=== PATIENT | male | born 1965 | race Caucasian/White ===

== ENCOUNTER 2016-06-25 15:00 | Emergency (ER) | payer OTHER ==
[~2016-06-25] VITALS: Ht 182.9 cm; Wt 83.6 kg
[~2016-06-25 15:00] MED LIST: PANT40TA PO; SERT-234 PO
[2016-06-25 15:04] VITALS: TEMP 36.6; Ht 182.9 cm; Wt 83.6 kg
--- NOTE | 2016-06-25 15:14 | EMERGENCY ROOM VISIT NOTE ---
History Report prepared by Prashant: Paul Recinos Under the Supervision of: Dr. Manuel Esquivel M.D. First contact with patient: 15:05 Chief Complaint: ABDOMINAL PAIN Stated Complaint: STOMACH PAIN History of Present Illness The patient is a 51 year old male who presents to the Emergency Room with complaints of right lower quadrant abdominal pain that started 4 days ago. He was sent from his primary care physician for an appendix workup. The patient also complains of intermittent fevers. He denies any vomiting. The patient still has his appendix and gallbladder. Source of History: patient Onset: 4 days ago Position: abdomen (RLQ) Timing: other (persistent) Associated Symptoms: + fevers, No vomiting Note: No other associated symptoms noted. Review of Systems See HPI for pertinent positives & negatives. A total of 10 systems reviewed and were otherwise negative. Past Medical & Surgical Medical Problems: (1) lower back surgery (2) stomach problems Family History Cancer Diabetes mellitus Heart disease Hypertension Social History Smoking Status: Current Every Day Smoker Alcohol Use: none Drug Use: none Marital Status: Housing Status: lives with family Occupation Status: unemployed Current/Historical Medications Scheduled Fluticasone Propionate (Nasal) (Flonase Allergy Relief), 2 SPRAYS CURRY DAILY Morphine Sulfate (Morphine Sulfate Cr), 30 MG PO BID Omeprazole (Prilosec), 40 MG PO DAILY Sertraline (Zoloft), 100 MG PO DAILY Scheduled PRN Dicyclomine Hcl (Bentyl), 10 MG PO QID PRN for ABD CRAMPS Hydrocodone/Acetaminophen 5MG/325MG ([place] 5MG/325MG), 1 TABLET PO BID PRN for Pain Loratadine (Claritin), 10 MG PO DAILY PRN for ALLERGIC REACTION Allergies Coded Allergies: Hydrocortisone (Verified Allergy, Unknown, DROPPED BP, 03/03/14) Iodinated Contrast Media (Verified Adverse Reaction, Unknown, GI SYMPTOMS- -N/V, 03/03/14) Physical Exam Vital Signs Date Time Temp Pulse Resp B/P Pulse Ox O2 Delivery O2 Flow Rate FiO2 06/25/16 17:35 53 20 112/80 96 Room Air 06/25/16 15:52 59 06/25/16 15:49 59 20 120/76 95 Room Air 06/25/16 15:04 36.6 75 20 116/85 98 Room Air Physical Exam CONSTITUTIONAL: Moderate painful distress. HEENT: No icterus, moist mucous membranes NECK: No meningismus, trachea is midline. CARDIOVASCULAR: Regular rate, normal perfusion RESPIRATORY: Unlabored breathing. Clear to auscultation. GASTROINTESTINAL: Moderate right-sided abdominal tenderness. GENITOURINARY: No flank tenderness MUSCULOSKELETAL: Full range of motion NEUROLOGIC: No acute gross focal deficits. PSYCHIATRIC: Normal affect SKIN: Normal for ethnicity. Medical Decision & Procedures ER Provider Diagnostic Interpretation: X-ray results as stated below per my interpretation and radiologist interpretation. Other radiology results as stated below per my review and radiologist interpretation. CHEST 2 VIEWS ROUTINE CLINICAL HISTORY: Abdominal pain rating to the right upper quadrant COMPARISON STUDY: 12/14/2012 FINDINGS: The cardiac and mediastinal contours remain stable. There is no focal pulmonary consolidation. Underlying emphysema is suspected. There is progressive bibasal interstitial thickening. This is a nonspecific finding which could be secondary to interstitial lung disease, an acute interstitial inflammatory process, or atelectasis. No free air is visualized.[ IMPRESSION: 1. No evidence of free air 2. Progressive bibasal interstitial thickening Electronically signed by: Rosalio Bergeron M.D. 06/25/2016 4:48 PM Dictated Date/Time: 06/25/2016 4:[address] ABD/PELVIS IV AND ORAL CONT CLINICAL HISTORY: Right-sided abdominal pain, nausea, vomiting. COMPARISON STUDY: 05/17/2014 TECHNIQUE: Following the IV administration of 115 mL of Optiray-320, CT scan of the abdomen and pelvis was performed from the lung bases to the proximal femurs. Images are reviewed in the axial, sagittal, and coronal planes. IV contrast was administered without complication. CT DOSE: 380.02 mGy.cm FINDINGS: Lower chest: There is severe emphysema with bibasilar dependent airspace opacities, likely atelectatic. Liver: There is mild hepatic steatosis. There is a 14 mm hypodensity within the left hepatic lobe, similar to the preceding study. Gallbladder: Unremarkable. Spleen: Normal in size and attenuation. Pancreas: Unremarkable. Adrenal glands: Unremarkable. Kidneys: There is an 18 mm right renal cyst. Bowel: There are no transition zones indicate bowel obstruction. There is no evidence of acute diverticulitis. The appendix appears normal. Peritoneum: There is no intraperitoneal free air or abdominal ascites. Vasculature: The abdominal aorta is normal in course and caliber. Adenopathy: None. Pelvic viscera: There is mild nonspecific bladder wall thickening Skeletal structures: No destructive osseous lesions are seen. IMPRESSION: 1. No evidence of bowel obstruction. No evidence of free air 2. Emphysema with bibasilar opacities likely atelectatic 3. No evidence of acute appendicitis. No evidence of acute diverticulitis. 4. Mild bladder wall thickening Electronically signed by: Rosalio Bergeron M.D. 06/25/2016 7:30 PM Dictated Date/Time: 06/25/2016 7:25 PM Laboratory Results 06/25/16 15:25 Red Blood Count 4.22, Mean Corpuscular Volume 89.1, Mean Corpuscular Hemoglobin 31.3, Mean Corpuscular Hemoglobin Concent 35.1, Mean Platelet Volume 9.9, Neutrophils (%) (Auto) 69.5, Lymphocytes (%) (Auto) 22.5, Monocytes (%) (Auto) 6.3, Eosinophils (%) (Auto) 1.1, Basophils (%) (Auto) 0.4, Neutrophils # (Auto) 5.73, Lymphocytes # (Auto) 1.86, Monocytes # (Auto) 0.52, Eosinophils # (Auto) 0.09, Basophils # (Auto) 0.03 06/25/16 15:25 Test 06/25/16 15:25 White Blood Count 8.25 K/uL (4.8-10.8) Red Blood Count 4.22 M/uL (4.7-6.1) Hemoglobin 13.2 g/dL (14.0-18.0) Hematocrit 37.6 % (42-52) Mean Corpuscular Volume 89.1 fL (80-100) Mean Corpuscular Hemoglobin 31.3 pg (25-34) Mean Corpuscular Hemoglobin Concent 35.1 g/dl (32-36) Platelet Count 276 K/uL (130-400) Mean Platelet Volume 9.9 fL (7.4-10.4) Neutrophils (%) (Auto) 69.5 % Lymphocytes (%) (Auto) 22.5 % Monocytes (%) (Auto) 6.3 % Eosinophils (%) (Auto) 1.1 % Basophils (%) (Auto) 0.4 % Neutrophils # (Auto) 5.73 K/uL (1.4-6.5) Lymphocytes # (Auto) 1.86 K/uL (1.2-3.4) Monocytes # (Auto) 0.52 K/uL (0.11-0.59) Eosinophils # (Auto) 0.09 K/uL (0-0.5) Basophils # (Auto) 0.03 K/uL (0-0.2) RDW Standard Deviation 42.8 fL (36.4-46.3) RDW Coefficient of Variation 13.2 % (11.5-14.5) Immature Granulocyte % (Auto) 0.2 % Immature Granulocyte # (Auto) 0.02 K/uL (0.00-0.02) Urine Color YELLOW Urine Appearance CLOUDY (CLEAR) Urine pH 5.0 (4.5-7.5) Urine Specific [place] 1.016 (1.000-1.030) Urine Protein NEG (NEG) Urine Glucose (UA) NEG (NEG) Urine Ketones NEG (NEG) Urine Occult Blood NEG (NEG) Urine Nitrite NEG (NEG) Urine Bilirubin NEG (NEG) Urine Urobilinogen NEG (NEG) Urine Leukocyte Esterase NEG (NEG) Urine WBC (Auto) 1-5 /hpf (0-5) Urine RBC (Auto) 0-4 /hpf (0-4) Urine Hyaline Casts (Auto) /lpf (0-5) Urine Epithelial Cells (Auto) 10-20 /lpf (0-5) Urine Bacteria (Auto) NEG (NEG) Urine Mucus PRESENT (NONE PRSENT) Urine Sperm (Auto) PRESENT (NOT PRESENT) Anion Gap 11.0 mmol/L (3-11) Est Creatinine Clear Calc Drug Dose 102.0 ml/min Estimated GFR () 109.0 Estimated GFR (Non- 94.1 BUN/Creatinine Ratio 9.6 (10-20) Calcium Level 9.1 mg/dl (8.5-10.1) Total Bilirubin 0.2 mg/dl (0.2-1) Direct Bilirubin < 0.1 mg/dl (0-0.2) Aspartate Amino Transf (AST/SGOT) 12 U/L (15-37) Alanine Aminotransferase (ALT/SGPT) 18 U/L (12-78) Alkaline Phosphatase 77 U/L (45-117) Total Protein 6.8 gm/dl (6.4-8.2) Albumin 3.6 gm/dl (3.4-5.0) Lipase 280 U/L (73-393) Urine Opiates Screen POS (NEG) Urine Methadone, Qualitative NEG (NEG) Urine Barbiturates NEG (NEG) Urine Phencyclidine (PCP) Level NEG (NEG) Ur Amphetamine/Methamphetamine POS (NEG) MDMA (Ecstasy) Screen NEG (NEG) Urine Benzodiazepines Screen NEG (NEG) Urine Cocaine Metabolite NEG (NEG) Urine Marijuana (THC) NEG (NEG) Labs reviewed by ED physician. Medications Administered Medications (Trade) Dose Ordered Sig/Dede Route Start Time Stop Time Status Last Admin Dose Admin Ondansetron HCl 4 mg 4 mg NOW STAT IV 06/25/16 15:15 06/25/16 15:16 DC 06/25/16 15:42 4 MG Sodium Chloride (Nss 500ml) 500 ml @ 999 mls/hr Q31M STAT IV 06/25/16 15:15 06/25/16 15:45 DC 06/25/16 15:15 999 MLS/HR Ketorolac Tromethamine (Toradol Inj) 15 mg NOW STAT IV 06/25/16 15:15 06/25/16 15:16 DC 06/25/16 15:40 15 MG Hydromorphone HCl (Dilaudid Inj) 1 mg PRN STAT IV 06/25/16 15:15 06/25/16 15:16 DC 06/25/16 15:40 1 MG Diphenhydramine HCl (Benadryl Inj) 25 mg NOW STAT IV 06/25/16 15:19 06/25/16 15:20 DC 06/25/16 15:41 25 MG Prochlorperazine Edisylate (Compazine Inj) 10 mg NOW STAT IV 06/25/16 15:19 06/25/16 15:20 DC 06/25/16 15:40 10 MG ED Course 1510: Past medical records reviewed. The patient was evaluated in room B9. A complete history and physical examination was performed. 1515: Ordered Dilaudid Inj 1 mg IV PRN, Toradol Inj 15 mg IV, NSS 500 ml @ 999 mls/hr IV, Zofran Inj 4 mg IV. 1518: Ordered Compazine Inj 10 mg IV, Benadryl Inj 25 mg IV. 1951: I reevaluated the patient and he is resting comfortably. The patient verbally expressed understanding and agreement of the treatment plan. The patient will be discharged. Medical Decision Differential diagnoses include: cholecystitis, appendicitis, kidney stone. 51-year-old presented to the emergency department for evaluation of several days of mild to moderate constant right lower quadrant tenderness and diarrhea. Moderate right-sided abdominal tenderness noted on exam. CT exam and labs otherwise unremarkable. Patient has opioid positive urine prior to administration of opiates emergency department. Abdomen benign prior to discharge. Patient understands up with primary doctor return for any worsening worrisome symptoms Impression Primary Impression: Abdominal pain Additional Impression: Diarrhea Scribe Attestation The scribe's documentation has been prepared under my direction and personally reviewed by me in its entirety. I confirm that the note above accurately reflects all work, treatment, procedures, and medical decision making performed by me. Departure Information Dispostion Home / Self-Care Referrals Enrico Schmidt M.D. (PCP) Forms Call Back Authorization, HOME CARE DOCUMENTATION FORM, IMPORTANT VISIT INFORMATION Patient Instructions Abdominal Pain - [facility], My [facility] Problem Qualifiers
[2016-06-25] MEDS ORDERED: HYDROmorphone INJ 1 MG/ML SYR IV STA (15:15)
[2016-06-25] MEDS ORDERED: KETOROLAC TROMETHAMINE 30 MG/ML VIAL IV STA (15:15)
[2016-06-25] MEDS ORDERED: ONDANSETRON INJ 2 MG/ML 2 ML VIAL IV STA (15:15)
[2016-06-25] MEDS ORDERED: SODIUM CHLORIDE 0.9% 500ML 500 ML IV STA (15:15)
[2016-06-25] MEDS ORDERED: DiphenhydrAMINE HCL 50 MG/ML VIAL IV STA (15:19)
[2016-06-25] MEDS ORDERED: PROCHLORPERAZINE 5 MG/ML 2 ML VIAL IV STA (15:19)
[2016-06-25 15:37] LABS: BASO % 0.4 %; BASO ABS # 0.03 K/uL (0-0.2); COMPLETE YES; EOS % 1.1 %; HEMATOCRIT 37.6 % (42-52); IG% 0.2 %; LYMPH % 22.5 %; LYMPH ABS # 1.86 K/uL (1.2-3.4); MEAN CELL VOLUME 89.1 fL (80-100); MEAN CORPUSCULAR HEMOGLOBIN 31.3 pg (25-34); MEAN CORPUSCULAR HGB CONC 35.1 g/dl (32-36); MEAN PLATELET VOLUME 9.9 fL (7.4-10.4); MONO % 6.3 %; NEUT % 69.5 %; PLATELET COUNT 276 K/uL (130-400); RED BLOOD COUNT 4.22 M/uL (4.7-6.1); WHITE BLOOD COUNT 8.25 K/uL (4.8-10.8)
[2016-06-25 15:52] LABS: URINE APPEARANCE CLOUDY (CLEAR); URINE BILIRUBIN NEG (NEG); URINE COLOR YELLOW; URINE NITRITE NEG (NEG); URINE SPECIFIC GRAVITY 1.016 (1.000-1.030); UROBILINOGEN NEG (NEG); ZZUR CULT IF INDIC CLEAN CATCH NO
[2016-06-25 15:55] LABS: ALT/SGPT 18 U/L (12-78); BLOOD UREA NITROGEN 9 mg/dl (7-18); BUN/CREATININE RATIO 9.6 (10-20); CALCIUM 9.1 mg/dl (8.5-10.1); CARBON DIOXIDE 22 mmol/L (21-32); CHLORIDE 109 mmol/L (98-107); CREATININE 0.93 mg/dl (0.60-1.40); GLUCOSE 87 mg/dl (70-99); POTASSIUM 3.7 mmol/L (3.5-5.1); SODIUM 142 mmol/L (136-145)
[2016-06-25 15:57] LABS: MANUAL MICROSCOPIC REQUIRED? NO; REVIEW REQ? YES
[2016-06-25 15:58] LABS: ALKALINE PHOSPHATASE 77 U/L (45-117); AST/SGOT 12 U/L (15-37)
[2016-06-25 16:13] LABS: URINE MUCUS PRESENT (NONE PRSENT)
[2016-06-25 16:16] LABS: BENZODIAZEPINE, URINE NEG (NEG); COCAINE,URINE NEG (NEG); PHENCYCLIDINE, URINE NEG (NEG)
[2016-06-25] MEDS ORDERED: DICY10CA55 PO (16:16)
[2016-06-25] MEDS ORDERED: MORP-87 PO (16:16)
[2016-06-25] MEDS ORDERED: FLUT0.15 NAE (16:16)
[2016-06-25] MEDS ORDERED: CLR10 PO (16:16)
[2016-06-25] MEDS ORDERED: HYDR-5688 PO (16:16)
[2016-06-25] MEDS ORDERED: OMEP40CA41 PO (16:18)
--- NOTE | 2016-06-25 16:49 | DIAGNOSTIC IMAGING REPORT ---
CHEST 2 VIEWS ROUTINE CLINICAL HISTORY: Abdominal pain rating to the right upper quadrant COMPARISON STUDY: 12/14/2012 FINDINGS: The cardiac and mediastinal contours remain stable. There is no focal pulmonary consolidation. Underlying emphysema is suspected. There is progressive bibasal interstitial thickening. This is a nonspecific finding which could be secondary to interstitial lung disease, an acute interstitial inflammatory process, or atelectasis. No free air is visualized.[ IMPRESSION: 1. No evidence of free air 2. Progressive bibasal interstitial thickening Electronically signed by: Rosalio Bergeron M.D. 06/25/2016 4:48 PM Dictated Date/Time: 06/25/2016 4:45 PM
--- NOTE | 2016-06-25 19:31 | DIAGNOSTIC IMAGING REPORT ---
CT ABD/PELVIS IV AND ORAL CONT CLINICAL HISTORY: Right-sided abdominal pain, nausea, vomiting. COMPARISON STUDY: 05/17/2014 TECHNIQUE: Following the IV administration of 115 mL of Optiray-320, CT scan of the abdomen and pelvis was performed from the lung bases to the proximal femurs. Images are reviewed in the axial, sagittal, and coronal planes. IV contrast was administered without complication. CT DOSE: 380.02 mGy.cm FINDINGS: Lower chest: There is severe emphysema with bibasilar dependent airspace opacities, likely atelectatic. Liver: There is mild hepatic steatosis. There is a 14 mm hypodensity within the left hepatic lobe, similar to the preceding study. Gallbladder: Unremarkable. Spleen: Normal in size and attenuation. Pancreas: Unremarkable. Adrenal glands: Unremarkable. Kidneys: There is an 18 mm right renal cyst. Bowel: There are no transition zones indicate bowel obstruction. There is no evidence of acute diverticulitis. The appendix appears normal. Peritoneum: There is no intraperitoneal free air or abdominal ascites. Vasculature: The abdominal aorta is normal in course and caliber. Adenopathy: None. Pelvic viscera: There is mild nonspecific bladder wall thickening Skeletal structures: No destructive osseous lesions are seen. IMPRESSION: 1. No evidence of bowel obstruction. No evidence of free air 2. Emphysema with bibasilar opacities likely atelectatic 3. No evidence of acute appendicitis. No evidence of acute diverticulitis. 4. Mild bladder wall thickening Electronically signed by: Rosalio Bergeron M.D. 06/25/2016 7:30 PM Dictated Date/Time: 06/25/2016 7:25 PM
[2016-06-25 20:15] VITALS: BP 110/72; PULSE 70; O2SAT 97
[2016-07-01 15:34] LABS: COD UR NEGATIVE NG/ML (CUTOFF=50); HYDROCOD UR NEGATIVE NG/ML (CUTOFF=50); HYDROMOR UR 65 NG/ML (CUTOFF=50); MORPHINE UR 2430 NG/ML (CUTOFF=50); NORHYDROCODONE CONF UR NEGATIVE NG/ML (CUTOFF=50); OXYMORPH UR NEGATIVE NG/ML (CUTOFF=50)
== END 2016-06-25 20:16 | disposition home or self-care (01) ==
LOC: C.EDB 15:01
DX: R10.31 Right lower quadrant pain (principal); R19.7 Diarrhea, unspecified; F17.200 Nicotine dependence, unspecified, uncomplicated; Z80.9 Family history of malignant neoplasm, unspecified; Z83.3 Family history of diabetes mellitus; Z82.49 Family history of ischemic heart disease and other diseases of the circulatory system

== ENCOUNTER 2017-01-28 19:58 | Emergency (ER) | payer OTHER ==
[~2017-01-28] VITALS: Ht 182.9 cm; Wt 78.2 kg
[~2017-01-28 19:58] MED LIST changes: +CLR10 PO; +DICY10CA55 PO; +FLUT0.15 NAE; +HYDR-5688 PO; +MORP-87 PO; +OMEP40CA41 PO; -PANT40TA PO
[2017-01-28 20:02] VITALS: BP 116/75; PULSE 63; TEMP 36.6; O2SAT 97; Ht 182.9 cm; Wt 78.2 kg
[2017-01-28] MEDS ORDERED: KETOROLAC TROMETHAMINE 60 MG/2 ML VIAL IM STA (20:18)
[2017-01-28] MEDS ORDERED: HYDROmorphone INJ 1 MG/ML SYR IM STA (20:18)
--- NOTE | 2017-01-28 20:49 | DIAGNOSTIC IMAGING REPORT ---
LUMBAR SPINE WITHOUT HISTORY: 51 years-old Male acute low back pain status post fall. COMPARISON: CT abdomen and pelvis 06/25/2016, lumbar spine CT 03/03/2017 TECHNIQUE: Multiple axial CT images of the lumbar spine were obtained without contrast. A dose lowering technique was used consistent with the principals of LULU. FINDINGS: Low attenuating 2.0 cm lesion of the right kidney is nonspecific, however suggests cyst. There is mild aortoiliac atherosclerotic plaquing. No fracture or dislocation of the lumbar spine identified. The sacrum is intact. Alignment is satisfactory. T12-L1: Mild facet arthrosis without central canal or foraminal narrowing. L1-L2: Mild facet arthrosis with broad-based posterior disc bulge causing mild central canal narrowing and mild inferior bilateral foraminal stenosis. L2-L3: Mild facet arthrosis with broad-based posterior disc bulge causing mild central canal narrowing. The neuroforamen appear patent. L3-L4: Moderate facet arthrosis and ligamentum flavum redundancy with circumferential annular disc bulge narrowing the AP dimension of the thecal sac to 7 mm causing moderate central canal and mild inferior bilateral foraminal narrowing. L4-L5: Posterior spondylitic spurring is present in conjunction with broad-based posterior disc bulge, mild to moderate facet arthrosis and ligamentum flavum redundancy causing moderate central canal, moderate left and no significant right foraminal narrowing. L5-S1: Moderate intervertebral disc space narrowing with posterior spondylitic spurring and circumferential annular disc bulge with moderate to severe facet arthrosis and ligamentum flavum redundancy. There is effacement of the ventral thecal sac without significant central canal narrowing. There is moderate left and [id number] right foraminal narrowing. Prior hemilaminectomy on the left. IMPRESSION: 1. No acute fracture or subluxation of the lumbar spine. 2. Multilevel facet arthrosis with intervertebral disc space narrowing most pronounced at L5-S1. 3. Annular disc bulging is seen at several levels with resultant central and foraminal narrowing of the mid and lower lumbar spine as discussed in detail above. 4. Prior left hemilaminectomy at L5. The above report was generated using voice recognition software. It may contain grammatical, syntax or spelling errors. Electronically signed by: Ori Cabrera M.D. 01/28/2017 8:48 PM Dictated Date/Time: 01/28/2017 8:38 PM
--- NOTE | 2017-01-28 22:23 | EMERGENCY ROOM VISIT NOTE ---
History First contact with patient: 20:08 Chief Complaint: FALL Stated Complaint: FALL, BACK PAIN History of Present Illness The patient is a 51 year old male who presents to the Emergency Room with complaints of a lower back injury after he slipped and fell this morning while walking around his porch. The patient reports landing mostly on his lower back region. He denies any head injury, upper back pain, chest pain or shortness of breath. The patient reports a history of 2 prior lumbar surgeries. He is currently on chronic pain management for his back. The patient reports that he did call his pain clinic, and they advised him to come to the emergency department for further evaluation. The patient currently rates his discomfort a 10 out of 10. He reports pain radiating down the right leg to the knee. He has had this pain in the past with his chronic back pain. He denies any bladder or bowel incontinence, saddle anesthesias or pronounced right lower extremity weakness. Review of Systems 10 system review was performed and was negative except for pertinent positives and negatives as indicated in history of present illness Past Medical/Surgical History Medical Problems: (1) lower back surgery (2) stomach problems Family History Cancer Diabetes mellitus Heart disease Hypertension Social History Smoking Status: Current Every Day Smoker Alcohol Use: none Drug Use: none Marital Status: Housing Status: lives with family Occupation Status: unemployed Current/Historical Medications Scheduled Fluticasone Propionate (Nasal) (Flonase Allergy Relief), 2 SPRAYS CURRY DAILY Morphine Sulfate (Morphine Sulfate Cr), 30 MG PO BID Omeprazole (Prilosec), 40 MG PO DAILY Sertraline (Zoloft), 100 MG PO DAILY Scheduled PRN Dicyclomine Hcl (Bentyl), 10 MG PO QID PRN for ABD CRAMPS Hydrocodone/Acetaminophen 5MG/325MG ([place] 5MG/325MG), 1 TABLET PO BID PRN for Pain Loratadine (Claritin), 10 MG PO DAILY PRN for ALLERGIC REACTION Physical Exam Vital Signs Date Time Temp Pulse Resp B/P (MAP) Pulse Ox O2 Delivery O2 Flow Rate FiO2 01/28/17 20:02 36.6 63 18 116/75 97 Room Air Physical Exam CONSTITUTIONAL: Healthy and well nourished. Alert and oriented X 3 with positive affect. Patient does not appear in any acute distress. HEENT: Normocephalic, atraumatic. Pupils equal, round and reactive. No subconjunctival hemorrhage, epistaxis or hemotympanum. NECK: Full active range of motion without discomfort. RESPIRATORY: Clear to auscultation bilaterally with no wheezing, crackles, rhonchi or stridor. CARDIOVASCULAR: Regular rate and rhythm with no murmurs, rubs or gallops. GASTROINTESTINAL: Bowel sounds present in all quadrants. Soft and nontender to palpation. MUSCULOSKELETAL: Examination shows an abrasion and erythema across the mid lumbar region. The patient has no significant tenderness to palpation through the SI joints. Negative logroll. Negative sitting straight leg raise. Pedal pulses are intact. Ankle plantar/dorsiflexion strength is 4 out of 5 and symmetric bilaterally. INTEGUMENTARY: No rash or other significant dermatologic conditions noted. NEUROLOGIC: No focal neurologic deficits noted. Lower extremity deep tendon reflexes are 2+ and symmetric bilaterally. Medical Decision & Procedures ER Provider Diagnostic Interpretation: Noncontrast CT of the lumbar spine shows no obvious evidence for fracture. The patient does have degenerative changes as discussed in the following radiologist report: LUMBAR SPINE WITHOUT HISTORY: 51 years-old Male acute low back pain status post fall. COMPARISON: CT abdomen and pelvis 06/25/2016, lumbar spine CT 03/03/2017 TECHNIQUE: Multiple axial CT images of the lumbar spine were obtained without contrast. A dose lowering technique was used consistent with the principals of ALARA. FINDINGS: Low attenuating 2.0 cm lesion of the right kidney is nonspecific, however suggests cyst. There is mild aortoiliac atherosclerotic plaquing. No fracture or dislocation of the lumbar spine identified. The sacrum is intact. Alignment is satisfactory. T12-L1: Mild facet arthrosis without central canal or foraminal narrowing. L1-L2: Mild facet arthrosis with broad-based posterior disc bulge causing mild central canal narrowing and mild inferior bilateral foraminal stenosis. L2-L3: Mild facet arthrosis with broad-based posterior disc bulge causing mild central canal narrowing. The neuroforamen appear patent. L3-L4: Moderate facet arthrosis and ligamentum flavum redundancy with circumferential annular disc bulge narrowing the AP dimension of the thecal sac to 7 mm causing moderate central canal and mild inferior bilateral foraminal narrowing. L4-L5: Posterior spondylitic spurring is present in conjunction with broad-based posterior disc bulge, mild to moderate facet arthrosis and ligamentum flavum redundancy causing moderate central canal, moderate left and no significant right foraminal narrowing. L5-S1: Moderate intervertebral disc space narrowing with posterior spondylitic spurring and circumferential annular disc bulge with moderate to severe facet arthrosis and ligamentum flavum redundancy. There is effacement of the ventral thecal sac without significant central canal narrowing. There is moderate left and [id number]-[id number] right foraminal narrowing. Prior hemilaminectomy on the left. IMPRESSION: 1. No acute fracture or subluxation of the lumbar spine. 2. Multilevel facet arthrosis with intervertebral disc space narrowing most pronounced at L5-S1. 3. Annular disc bulging is seen at several levels with resultant central and foraminal narrowing of the mid and lower lumbar spine as discussed in detail above. 4. Prior left hemilaminectomy at L5. Medications Administered Medications (Trade) Dose Ordered Sig/Dede Route Start Time Stop Time Status Last Admin Dose Admin Hydromorphone HCl (Dilaudid Inj) 2 mg ONE STAT IM 01/28/17 20:18 01/28/17 20:21 DC 01/28/17 20:28 2 MG Ketorolac Tromethamine (Toradol Inj) 60 mg NOW STAT IM 01/28/17 20:18 01/28/17 20:21 DC 01/28/17 20:28 60 MG ED Course Patient history and physical exam were performed. Nurse's notes were reviewed. Vital signs were reviewed and were normal. When asked what the patient was taking at home for pain, he reports Tylenol only. His then stated that he is also on extended release morphine and hydrocodone for chronic back pain. Review of the [place] Prescription Drug Monitoring Program confirms that he does receive monthly prescriptions. The patient was prepped blasting something for pain. Given his usual morphine dosing, the patient was administered Dilaudid 2 mg and Toradol [address] of the lumbar spine was negative for fracture. The patient requested a copy of his CT that he can take to his neurologist in [place]. This was provided to the patient. He was instructed to intermittently apply ice to the back. He was instructed to refrain from heavy lifting or sitting for long periods of time. He was instructed to call his pain clinic to discuss further pain management options, and follow-up with his family doctor for further back pain management. The patient voiced understanding of all discharge instructions, was happy with plan of care, and rated his discomfort a 5 out of 10 at the conclusion of my exam. Medical Decision Impression Primary Impression: Lumbar contusion Additional Impressions: Fall from slip, trip, or stumble Chronic lumbar pain Departure Information Referrals Enrico Schmidt M.D. (PCP) Patient Instructions My [facility] Problem Qualifiers Primary Impression: Lumbar contusion Encounter type: initial encounter Qualified Codes: S30.0XXA - Contusion of lower back and pelvis, initial encounter Additional Impressions: Fall from slip, trip, or stumble Encounter type: initial encounter Qualified Codes: W01.0XXA - Fall on same level from slipping, tripping and stumbling without subsequent striking against object, initial encounter Chronic lumbar pain Back pain laterality: unspecified Sciatica presence: without sciatica Qualified Codes: M54.5 - Low back pain; G89.29 - Other chronic pain
== END 2017-01-28 21:14 | disposition home or self-care (01) ==
LOC: C.EDB 19:59 → C.EDD 21:14
DX: S30.0XXA Contusion of lower back and pelvis, initial encounter (principal); W01.0XXA Fall on same level from slipping, tripping and stumbling without subsequent striking against object, initial encounter; G89.29 Other chronic pain; Z80.9 Family history of malignant neoplasm, unspecified; Z83.3 Family history of diabetes mellitus; Z82.49 Family history of ischemic heart disease and other diseases of the circulatory system; F17.210 Nicotine dependence, cigarettes, uncomplicated; Z79.899 Other long term (current) drug therapy

== ENCOUNTER 2018-01-18 20:43 | Emergency (ER) | payer OTHER ==
[~2018-01-18] VITALS: Ht 182.9 cm; Wt 77.7 kg
[2018-01-18 20:52] VITALS: Ht 182.9 cm; Wt 77.7 kg
[2018-01-18] MEDS ORDERED: HYDROCODONE/ACETAMIN 5/325MG TAB PO STA (21:12)
--- NOTE | 2018-01-18 21:51 | DIAGNOSTIC IMAGING REPORT ---
CT SCAN OF THE LUMBAR SPINE WITHOUT IV CONTRAST CLINICAL HISTORY: Low back pain. COMPARISON STUDY: CT scan of the lumbar spine dated 01/28/2017. TECHNIQUE: CT scan of the lumbar spine is performed from the lower thoracic spine to the sacrum. Images are reviewed in the axial, sagittal, and coronal planes. IV contrast was not administered for this examination. A dose lowering technique was utilized adhering to the principles of ALARA. CT DOSE: 703.20 mGy.cm FINDINGS: The skeletal structures are well mineralized. There is no evidence of fracture or malalignment involving the lumbar spine. Vertebral body height and alignment are maintained. There is evidence of previous left hemilaminectomy at L4-L5 and L5-S1. Small anterior osteophytes are seen throughout. No lytic or blastic lesion is seen. The transverse and spinous processes are intact. There is no evidence of spondylolysis. Mild to moderate disc space narrowing is seen at L5-S1. The remaining disc spaces are preserved. Small posterior disc osteophyte complexes are noted at L4-L5 and L5-S1. There is no evidence of large disc herniation or high-grade central canal stenosis by CT. The visualized sacrum and bony pelvis appear intact. The paraspinous soft tissues are normal in appearance. A 2.3 cm cyst is incidentally noted in the right kidney. No retroperitoneal lymphadenopathy is identified. A circumaortic left renal vein is incidentally noted. IMPRESSION: 1. No acute bony abnormality is seen involving the lumbar spine. 2. Mild degenerative and postoperative changes as above. Dictated: 01/18/2018 9:33 PM Transcribed: 01/18/2018 9:51 PM Justin Electronically signed by: Spenser Tobias M.D. 01/18/2018 9:57 PM Dictated Date/Time: 01/18/2018 9:33 PM
[2018-01-18] MEDS ORDERED: LIDODERM (LIDOCAINE) PATCH 5% TD STA (22:24)
[2018-01-18] MEDS ORDERED: MoRPHine SULFATE 10 MG/ML CARP/VIAL IM STA (22:24)
--- NOTE | 2018-01-18 22:30 | EMERGENCY ROOM VISIT NOTE ---
ED Visit Note First contact with patient: 20:59 CHIEF COMPLAINT: Low back pain HISTORY OF PRESENT ILLNESS: This 52-year-old male patient presents to the emergency department, ambulatory, complaining of pain in the low back which is chronic, but became worse after twisting his back on Wednesday. The patient states he twisted to the right and his heard a pop in the back. The patient does have a history of back surgeries, the most recent which was performed in [facility]. The patient is seen by a pain management clinic regarding his chronic back pain. He is treated with Warren and p.o. morphine, but states he has been without these medications for approximately the past week as his provider has been on vacation and he was unable to get the medications. The patient reports right-sided back pain and describes it as a burning sensation radiating into his side and down the right leg. This burning sensation in the radiation of pain has been ongoing for approximately the past 2 months. The patient's pain management provider has been attempting to schedule an MRI, however there has been difficulty getting this scheduled. The patient denies no new symptoms, but states the symptoms he is experiencing now are worse than normal. He has taken no OTC medications for his pain. He does have some numbness in the right foot, but again states this is consistent with the symptoms he has been experiencing for the past several months. The pain is worse with movement. He rates the pain a 7/10. The patient denies any loss of control of their bowel or bladder functions. There has been no leg weakness, and no change in sensation. No nausea or vomiting or abdominal pain. No chest pain or shortness of breath. No dysuria or increased urinary frequency. REVIEW OF SYSTEMS: A 10 system review of systems was performed with positives and pertinent negatives listed in the history of present illness. All other systems were reviewed and are negative. ALLERGIES: Contrast iodine MEDICATIONS: Morphine, Warren, Bentyl, Flonase, Claritin, Prilosec, Zoloft PMH: Chronic pain, IBS, reflux, allergies SOCIAL HISTORY: The patient lives locally with family. He denies drug, alcohol use. He is a current everyday smoker. PHYSICAL EXAM: VITALS: Vitals are noted on the nurse's note and reviewed by myself. Vital signs stable. GENERAL: This is a 52-year-old white male, in no acute distress, nondiaphoretic , well-developed well-nourished. SKIN: The skin was without rashes, erythema, edema, or bruising. Capillary refill less than 2 seconds. NECK: Supple without nuchal rigidity. No cervical spine tenderness. No paraspinous muscle tenderness. HEART: Regular rate and rhythm without murmurs gallops or rubs. LUNGS: Clear to auscultation bilaterally without wheezes, rales or rhonchi. ABDOMEN: Positive bowel sounds x 4. Normal tympanic percussion. Soft, nontender, without masses or organomegaly. Aquino sign negative. MUSCULOSKELETAL: No muscle atrophy, erythema, or edema noted of the back. There is tenderness over the lumbar spinous processes, which the patient states is chronic. There is tenderness over the paraspinous muscles on the right. There is no tenderness over the thoracic spine or paraspinous muscles. There are no muscle spasms present. The patient is slow to move around with maximum tenderness with sitting from a lying position. Positive right side straight leg raise test. NEURO: Patient was alert and oriented to person place and time. Normal sensation to light and sharp touch. Deep tendon reflexes 2+ in the lower extremities. Dorsalis pedis pulse 2+ bilaterally. Strength 5/5 and equal in the bilateral lower extremities. RADIOLOGY: CT SCAN OF THE LUMBAR SPINE WITHOUT IV CONTRAST CLINICAL HISTORY: Low back pain. COMPARISON STUDY: CT scan of the lumbar spine dated 01/28/2017. TECHNIQUE: CT scan of the lumbar spine is performed from the lower thoracic spine to the sacrum. Images are reviewed in the axial, sagittal, and coronal planes. IV contrast was not administered for this examination. A dose lowering technique was utilized adhering to the principles of ALARA. CT DOSE: 703.20 mGy.cm FINDINGS: The skeletal structures are well mineralized. There is no evidence of fracture or malalignment involving the lumbar spine. Vertebral body height and alignment are maintained. There is evidence of previous left hemilaminectomy at L4-L5 and L5-S1. Small anterior osteophytes are seen throughout. No lytic or blastic lesion is seen. The transverse and spinous processes are intact. There is no evidence of spondylolysis. Mild to moderate disc space narrowing is seen at L5-S1. The remaining disc spaces are preserved. Small posterior disc osteophyte complexes are noted at L4-L5 and L5-S1. There is no evidence of large disc herniation or high-grade central canal stenosis by CT. The visualized sacrum and bony pelvis appear intact. The paraspinous soft tissues are normal in appearance. A 2.3 cm cyst is incidentally noted in the right kidney. No retroperitoneal lymphadenopathy is identified. A circumaortic left renal vein is incidentally noted. IMPRESSION: 1. No acute bony abnormality is seen involving the lumbar spine. 2. Mild degenerative and postoperative changes as above. Dictated: 01/18/2018 9:33 PM Transcribed: 01/18/2018 9:51 PM Justin Electronically signed by: Spenser Tobias M.D. 01/18/2018 9:57 PM Dictated Date/Time: 01/18/2018 9:33 PM EMERGENCY DEPARTMENT COURSE: The patient was seen and evaluated as above. There are no symptoms of cauda equina syndrome or other concerning emergent etiology, however due to his history and recent injury, CT scan of the lumbar spine was ordered and performed. This was reviewed by myself and radiologist as above. The patient was given Warren for pain. He was offered a morphine injection initially and declined. Prior to discharge, the patient states he continues to be in pain and states "I just want to be able to sleep tonight". I advised the patient again that I would be willing to give him a morphine injection, but discussed with him that he would need to speak with his pain management provider regarding prescriptions for his narcotic medication. The patient was agreeable to a morphine injection. He was given this injection and also requested a pain patch. He was given a Lidoderm patch. He was encouraged to follow-up outpatient with his primary care provider and pain management provider. I also provided him with contact information for the local orthopedic spine surgeon. All questions answered to the patient's satisfaction prior to discharge. Discharge instructions reviewed, patient was discharged home in good condition. I attest that I have personally reviewed the patient's current medication list. Patient was found to have normal blood pressure on screening and does not require follow-up. Etiologies such as lumbago, sciatica, cauda equina, epidural abscess, osteomyelitis, fracture, aortic disease, metastatic disease, infection, renal colic, gastrointestinal, as well as others were entertained. DIAGNOSIS: Lumbar strain, chronic low back pain The chart was completed utilizing [employer] voice recognition software. Grammatical errors, random word insertions, pronoun errors, and incomplete sentences are an occasional consequence of this system due to software limitations, ambient noise, and hardware issues. Any formal questions or concerns about the content, text, or information contained within the body of this dictation should be directly addressed to the provider for clarification. Problem List Medical Problems: (1) lower back surgery Status: Resolved (2) stomach problems Status: Chronic Current/Historical Medications Scheduled Fluticasone Propionate (Nasal) (Flonase Allergy Relief), 2 SPRAYS CURRY DAILY Morphine Sulfate (Morphine Sulfate Cr), 30 MG PO BID Omeprazole (Prilosec), 40 MG PO DAILY Sertraline (Zoloft), 100 MG PO DAILY Scheduled PRN Dicyclomine Hcl (Bentyl), 10 MG PO QID PRN for ABD CRAMPS Hydrocodone/Acetaminophen 5MG/325MG (Warren 5MG/325MG), 1 TABLET PO BID PRN for Pain Loratadine (Claritin), 10 MG PO DAILY PRN for ALLERGIC REACTION Allergies Coded Allergies: POLLEN (Verified Allergy, Intermediate, SNEEZING, CONGESTION, COUGH., 01/28) Iodinated Contrast Media (Verified Adverse Reaction, Unknown, GI SYMPTOMS- -N/V, 01/28/17) Vital Signs Date Time Temp Pulse Resp B/P (MAP) Pulse Ox O2 Delivery O2 Flow Rate FiO2 01/18/18 23:04 36.9 80 18 116/78 98 01/18/18 20:52 36.9 80 18 116/78 98 Room Air Medications Administered Medications (Trade) Dose Ordered Sig/Dede Route Start Time Stop Time Status Last Admin Dose Admin Acetaminophen/ Hydrocodone Bitart (Warren 5/325 Tab) 1 tab NOW STAT PO 01/18/18 21:12 01/18/18 21:13 DC 01/18/18 21:21 1 TAB Lidocaine (Lidoderm Patch 5%) 1 patch NOW STAT TD 01/18/18 22:24 01/18/18 22:25 DC 01/18/18 22:39 1 PATCH Morphine Sulfate (MoRPHine SULFATE INJ) 8 mg NOW STAT IM 01/18/18 22:24 01/18/18 22:25 DC 01/18/18 22:38 8 MG Departure Information Impression Primary Impression: Strain of lumbar region Additional Impression: Chronic low back pain Dispostion Home / Self-Care Condition GOOD Referrals Enrico Schmidt M.D. (PCP) Jj Dupree, DO Patient Instructions ED Neck Back Pain General, My [facility] Additional Instructions You have been treated in the Emergency Department for Back Pain. You have received pain medicine in the emergency department which impairs your ability to operate a vehicle. It is illegal for you to drive after receiving these medicines. Lidoderm patch must be removed in 12 hours. For pain control, you can use the following [id number] medicines (if >12 yo): Ibuprofen(Motrin, Advil) may be used for fever or pain. Use 600mg every six hours as needed. Take with food. Avoid using more than 2400mg in a 24 hour period. Do not use 2400mg per day for more than three consecutive days without physician direction. Prolonged inappropriate use can lead to stomach upset or ulcers. (AND/OR) Acetaminophen(Tylenol) may be used for fever or pain. Use 1000mg every six hours as needed. Avoid using more than 3000mg in a 24 hour period. As discussed, for further narcotic prescriptions, you will need to consult with your pain management provider. If this is an acute injury, ice can be applied to the area of pain for the first 3 days to help decrease pain and inflammation. After the first 3 days, a heating pad can be used over the area for continued soothing relief. You should schedule a follow-up appointment in 1-2 days with your Primary Care Provider/pain management provider for further evaluation and treatment of your back pain. You should consider follow-up and consultation with an orthopedic spine surgeon. You were provided with contact information for a local surgeon. Return to the Emergency Department if your current symptoms worsen despite treatment course outlined above, or if you develop any of the following symptoms : intractable pain despite aforementioned treatment course, loss of control of your bowel or bladder, numbness or tingling in your groin, or development of a fever. Problem Qualifiers Primary Impression: Strain of lumbar region Encounter type: initial encounter Qualified Codes: S39.012A - Strain of muscle, fascia and tendon of lower back, initial encounter Additional Impression: Chronic low back pain Back pain laterality: right Sciatica presence: with sciatica Sciatica laterality: sciatica of right side Qualified Codes: M54.41 - Lumbago with sciatica, right side; G89.29 - Other chronic pain
[2018-01-18 23:04] VITALS: BP 116/78; PULSE 80; TEMP 36.9; O2SAT 98
== END 2018-01-18 23:05 | disposition home or self-care (01) ==
LOC: C.EDB 20:44 → C.EDD 23:05
DX: S39.012A Strain of muscle, fascia and tendon of lower back, initial encounter (principal); X50.1XXA Overexertion from prolonged static or awkward postures, initial encounter; G89.29 Other chronic pain; K21.9 Gastro-esophageal reflux disease without esophagitis; Z98.890 Other specified postprocedural states; Z79.891 Long term (current) use of opiate analgesic; Z79.899 Other long term (current) drug therapy; Z88.8 Allergy status to other drugs, medicaments and biological substances; Z91.048 Other nonmedicinal substance allergy status; Z91.041 Radiographic dye allergy status

== ENCOUNTER 2019-03-09 00:09 | Inpatient (IN) ==
[2019-03-09] MEDS ORDERED: ACETAMINOPHEN 1,000 MG/100 ML VIAL IV STA (00:32)
[2019-03-09] MEDS ORDERED: SODIUM CHLORIDE 0.9% 1000ML 1,000 ML IV ONE ×2 (00:32→01:37)
[2019-03-09] MEDS ORDERED: methylPREDNISolone 125 MG/2 ML VIAL IV STA (00:58)
[2019-03-09] MEDS ORDERED: DiphenhydrAMINE HCL 50 MG/ML VIAL IV STA (00:58)
[2019-03-09 01:01] LABS: Basophils # (auto) 0.02 K/uL (0-0.2); Basophils % (auto) 0.1 %; Eosinophils # (auto) 0.01 K/uL (0-0.5); Eosinophils % (auto) 0.1 %; Hematocrit (blood only) 34.6 % (42-52); Immature Granulocytes # (auto) 0.06 K/uL (0.00-0.02); Immature Granulocytes % (auto) 0.3 %; Lymphocytes # (auto) 1.27 K/uL (1.2-3.4); Lymphocytes % (auto) 6.9 %; Mean Corpuscular Hemoglobin 32.6 pg (25-34); Mean Corpuscular Hgb Conc 34.7 g/dL (32-36); Mean Platelet Volume 10.2 fL (7.4-10.4); Monocytes # (auto) 1.05 K/uL (0.11-0.59); Monocytes % (auto) 5.7 %; Neutrophils # (auto) 16.11 K/uL (1.4-6.5); Neutrophils % (auto) 86.9 %; Platelet Count 237 K/uL (130-400); RDW Standard Deviation 44.9 fL (36.4-46.3); Red Blood Count 3.68 M/uL (4.7-6.1); White Blood Count 18.52 K/uL (4.8-10.8)
[2019-03-09 01:19] LABS: Alanine Aminotransferase 47 U/L (12-78); Aspartate Aminotransferase 52 U/L (15-37); BUN Creatinine Ratio 10.7 (10-20); Blood Urea Nitrogen 11 mg/dl (7-18); Calcium 8.5 mg/dl (8.5-10.1); Carbon Dioxide 23 mmol/L (21-32); Chloride 107 mmol/L (98-107); Creatinine Clr Calc Pharmacy 77.5 ml/min; Est GFR (African American) 98.5; Est GFR (Non-African American) 84.9; Glucose 116 mg/dl (70-99); Lipase 93 U/L (73-393); Magnesium 1.8 mg/dl (1.8-2.4); Potassium 3.1 mmol/L (3.5-5.1); Sodium 140 mmol/L (136-145)
[2019-03-09 01:24] LABS: Albumin Globulin Ratio 0.7 (0.9-2); Alkaline Phosphatase 83 U/L (45-117); Bilirubin,Total 0.9 mg/dl (0.2-1); Globulin 4.1 gm/dl (2.5-4.0); Total Protein 7.1 gm/dl (6.4-8.2); Troponin I < 0.015 ng/ml (0-0.045)
[2019-03-09] MEDS ORDERED: ONDANSETRON INJ 2 MG/ML 2 ML VIAL IV STA (01:37)
[2019-03-09] MEDS ORDERED: KETOROLAC TROMETHAMINE 15 MG/ML VIAL IV STA (01:37)
[2019-03-09] MEDS ORDERED: cefTRIAXone SODIUM 1,000 MG/50 ML BAG IV STA (01:39)
[2019-03-09] MEDS ORDERED: IOVERSOL 100ml IV PRN (02:23)
[2019-03-09] MEDS ORDERED: ALBUT/IPRATROP 3MG/0.5MG NEB 3 ML VIAL NEB STA (02:44)
[2019-03-09] MEDS ORDERED: LEVOFLOXACIN/D5W 750 MG/150 ML BAG IV STA (02:51)
[2019-03-09 03:00] LABS: Appearance Urine Clear (Clear); Bilirubin Urine Negative (Negative); Blood Urine Negative (Negative); Color Urine Yellow; Glucose Urine UA Negative (Negative); Ketones Urine Negative (Negative); Leukocyte Esterase Urine Negative (Negative); Nitrite Urine Negative (Negative); Protein Urine Negative (Negative); Specific Gravity Urine 1.029 (1.000-1.030); Urobilinogen Urine Negative (Negative); pH Urine 6.5 (4.5-7.5)
--- NOTE | 2019-03-09 03:01 | Emergency Department Note ---
Entered by Satish Rodriguez acting as a scribe for History of Present Illness General Chief complaint: Flu Like Symptoms Stated complaint: PAIN, ACHING, COUGHING, FEVER OF 102.7 Time Seen by Provider: 03/09/19 00:25 Source: patient History of Present Illness Onset (ago): day(s) 3 Location: chest Pain Consistency: + constant Maximum Pain Intensity: 10 Quality: + other (flu-like symptoms) Associated symptoms: + other (Positive for body aches, headache, fever, chest pain, back pain, a productive green cough, rhinorrhea, sore throat, nausea, increased urination, and an infection on his chin. Negative for vomiting, rashes, sores, changes in his bowels, diarrhea, and difficulty urinating.) The patient is a 53 year old male who presents to the emergency department with complaints of constant flu-like symptoms beginning 3 days ago. The patient states that he first developed body aches and a headache 3 days ago. He notes that his doctor thought that he had influenza yesterday, and he reports that he was prescribed Tamiflu. The patient states that he has taken 4 doses of Tamiflu. He notes that he then had a 102.7 degree fever last night. He also complains of chest pain, back pain, a productive green cough, rhinorrhea, sore throat, nausea, and increased urination. He reports that his chest pain and back pain worsen when he takes a breath. The patient states that he also has an infection on his chin from when he nicked himself shaving 3 days ago. He denies any vomiting, rashes, sores, changes in his bowels, diarrhea, and difficulty urinating. Patient states he has previously had pneumonia, although states this feels different. No other recent sick contacts or change in activity. Patient is not immunocompromised. Home Medications Home Medications Medication Instructions Recorded Confirmed Type dicyclomine 10 mg PO QID PRN 05/16/18 03/09/19 History loratadine 10 mg PO DAILY 05/16/18 03/09/19 History omeprazole 40 mg PO DAILY 05/16/18 03/09/19 History acetaminophen [Tylenol Extra 1,000 mg PO QID PRN 10/04/18 03/09/19 History Strength] naproxen sodium [Aleve] 440 mg PO BID PRN 10/04/18 03/09/19 History cyclobenzaprine 10 mg PO TID PRN #15 tab 02/10/19 03/09/19 Rx Allergies Allergy/AdvReac Type Severity Reaction Status Date / Time cortisone Allergy Severe DROPPED Verified 03/09/19 01:04 B/P, PASSED OUT, BURNING SENSATION AT SITE. pollen extracts Allergy Intermediate SNEEZING, Verified 03/09/19 01:04 CONGESTION, COUGH. Iodinated Contrast Media AdvReac Intermediate GI Verified 03/09/19 01:04 SYMPTOMS--N/V Past Med/Surg History Family History Other No significant family history Social History Preferred Language: Peruvian marital status: current occupational status: unemployed and disabled Feels Safe at Home: Yes Smoking Status: Current every day smoker Review of Systems See HPI for pertinent positives & negatives. and A total of 10 systems reviewed and were otherwise negative Physical Exam Vital Signs Vital Signs - 24 hr 03/09/19 00:14 03/09/19 02:08 03/09/19 02:56 Temperature 36.9 C Temperature Source Oral Sepsis Recent Fever Within 48 Hours No Sepsis Action Taken by Nursing No Action Required Pulse Rate 122 H Pulse Rate [Right Finger] 71 77 Respiratory Rate 20 16 18 Respiratory Effort / Characteristics Non-Labored Spontaneous Non-Labored Spontaneous Respiratory Depth Normal Blood Pressure 97/64 L Blood Pressure [Right Arm] 118/72 Blood Pressure Mean 75 Blood Pressure Mean [Right Arm] 87 Pulse Oximetry 96 95 96 Oxygen Delivery Method Room Air Room Air Room Air 03/09/19 04:11 Temperature 36.5 C Temperature Source Oral Sepsis Recent Fever Within 48 Hours Sepsis Action Taken by Nursing Pulse Rate Pulse Rate [Right Finger] 97 H Respiratory Rate 18 Respiratory Effort / Characteristics Non-Labored Spontaneous Respiratory Depth Normal Blood Pressure Blood Pressure [Right Arm] 134/80 Blood Pressure Mean Blood Pressure Mean [Right Arm] 98 Pulse Oximetry 96 Oxygen Delivery Method Room Air GENERAL: alert, ill appearing, well nourished, no distress, non-toxic HEAD: Erythema and edema noted to mental prominence with palpable induration and small area of crusting noted, no vesicles, no obvious fluctuant area, tender to palpation, no other bony tenderness to the face. EYE EXAM: normal conjunctiva, PERRL and EOM's grossly intact OROPHARYNX: no exudate, no erythema, lips, buccal mucosa, and tongue normal and mucous membranes are dry, poor dentition. NECK: supple, no nuchal rigidity, no adenopathy, non-tender LUNGS: Clear to auscultation. Normal chest wall mechanics. Diminished breath sounds bilaterally, no wheezes, rhonchi, and rales. No retractions, no increased work of breathing. HEART: no murmurs, S1 normal and S2 normal ABDOMEN: abdomen soft, non-tender, normo-active bowel sounds, no masses, no rebound or guarding. BACK: Back is symmetrical on inspection and there is no deformity, no midline tenderness, no CVA tenderness. SKIN: no rashes and no bruising UPPER EXTREMITIES: upper extremities are grossly normal. FROM, nml pulses b/l. LOWER EXTREMITIES: No pitting edema. FROM, nml pulses b/l. NEURO EXAM: Normal sensorium, cranial nerves II-XII grossly intact, normal speech, no gross weakness of arms, no gross weakness of legs. Course 0027: The patient was evaluated in room B12. A complete history and physical exam was performed. 0150: Nursing alerted me that while pretreating to go for CT, patient refused steroids as he states he had a bad reaction to cortisone previously. 0255: I reevaluated and updated the patient. We discussed additional inpatient management. The patient is in agreement. 0308: Upon reevaluation, the patient is stable. I discussed the findings and the treatment plan with the patient. He expresses agreement and understanding. I spoke with Dr. Nelson of the [facility]. The patient will be evaluated for further management. Consultations Consultation #1: I reviewed the patient's case with Dr. Nelson - [facility]. He will evaluate the patient for further management. Time: 03:08 Administered Medications Discontinued Medications Albuterol (Duoneb) 3 ml NEB NOW STA Stop: 03/09/19 02:45 Last Admin: 03/09/19 02:54 Dose: 3 ml Documented by: [id number] Diphenhydramine HCl (Benadryl) 25 mg IV NOW STA Stop: 03/09/19 00:59 Last Admin: 03/09/19 01:41 Dose: 25 mg Documented by: [id number] Acetaminophen (Ofirmev) 1,000 mg in 100 mls @ 400 mls/hr IV NOW STA Stop: 03/09/19 00:46 Last Admin: 03/09/19 01:36 Dose: Not Given Documented by: [id number] Sodium Chloride (Nss 1000ml) 1,000 mls @ 999 mls/hr IV .Q1H1M ONE Stop: 03/09/19 01:32 Last Infusion: 03/09/19 02:50 Dose: 0 mls/hr Documented by: [id number] Admin: 03/09/19 01:36 Dose: 999 mls/hr Documented by: [id number] Sodium Chloride (Nss 1000ml) 1,000 mls @ 999 mls/hr IV .Q1H1M ONE Stop: 03/09/19 02:37 Last Infusion: 03/09/19 02:12 Dose: 0 mls/hr Documented by: [id number] Admin: 03/09/19 01:42 Dose: 999 mls/hr Documented by: [id number] Ceftriaxone Sodium (Rocephin) 1,000 mg in 50 mls @ 100 mls/hr IV NOW STA Stop: 03/09/19 02:08 Last Infusion: 03/09/19 02:50 Dose: 0 mls/hr Documented by: [id number] Admin: 03/09/19 02:07 Dose: 100 mls/hr Documented by: [id number] Levofloxacin/Dextrose (Levaquin/D5w) 750 mg in 150 mls @ 100 mls/hr IV NOW STA Stop: 03/09/19 04:20 Last Admin: 03/09/19 03:30 Dose: 100 mls/hr Documented by: [id number] Magnesium Sulfate/Dextrose (Magnesium Sulfate / D5w) 1 gm in 100 mls @ 100 mls/hr IV ONE ONE Stop: 03/09/19 04:15 Last Infusion: 03/09/19 04:33 Dose: 0 mls/hr Documented by: [id number] Admin: 03/09/19 03:31 Dose: 100 mls/hr Documented by: [id number] Ioversol (Optiray 320 100ml) 100 ml IV ONCE PRN PRN Reason: Interaction Checking Stop: 03/13/19 02:22 Last Admin: 03/09/19 02:23 Dose: 93 ml Documented by: [id number] Ketorolac Tromethamine (Toradol) 10 mg IV NOW STA Stop: 03/09/19 01:38 Last Admin: 03/09/19 01:41 Dose: 10 mg Documented by: [id number] Methylprednisolone (Solumedrol) 60 mg IV NOW STA Stop: 03/09/19 00:59 Last Admin: 03/09/19 01:36 Dose: Not Given Documented by: [id number] Ondansetron HCl (Zofran) 4 mg IV NOW STA Stop: 03/09/19 01:38 Last Admin: 03/09/19 01:41 Dose: 4 mg Documented by: [id number] Potassium Chloride (Klor-Con M20) 40 meq PO NOW STA Stop: 03/09/19 03:17 Last Admin: 03/09/19 03:52 Dose: 40 meq Documented by: [id number] Medical Decision Making Differential Diagnosis Differential diagnosis: Etiologies such as viral syndrome, otitis, pharyngitis, pneumonia, influenza, meningitis, urinary tract infection, septic arthritis, soft tissue infectious process, intra-abdominal process, sepsis, bacteremia, as well as others were entertained. Medical Records Attestation: I reviewed the patient's medical records. Home Medications Current Medication List: was personally reviewed by me Laboratory Data Attestation: I reviewed the patient's lab results. Result diagrams: 03/09/19 00:47 03/09/19 00:47 Lab Results 03/09/19 03/09/19 03/09/19 Range/Units 00:47 00:47 00:47 WBC 18.52 H (4.8-10.8) K/uL RBC 3.68 L (4.7-6.1) M/uL Hgb 12.0 L (14.0-18.0) g/dL Hct 34.6 L (42-52) % MCV 94.0 (80-100) fL MCH 32.6 (25-34) pg MCHC 34.7 (32-36) g/dL RDW Std Deviation 44.9 (36.4-46.3) fL RDW Coeff of Angela 13.0 (11.5-14.5) % Plt Count 237 (130-400) K/uL MPV 10.2 (7.4-10.4) fL Immature Gran % (Auto) 0.3 % Neut % (Auto) 86.9 % Lymph % (Auto) 6.9 % [place] % (Auto) 5.7 % Eos % (Auto) 0.1 % Baso % (Auto) 0.1 % Immature Gran # (Auto) 0.06 H (0.00-0.02) K/uL Neut # (Auto) 16.11 H (1.4-6.5) K/uL Lymph # (Auto) 1.27 (1.2-3.4) K/uL [place] # (Auto) 1.05 H (0.11-0.59) K/uL Eos # (Auto) 0.01 (0-0.5) K/uL Baso # (Auto) 0.02 (0-0.2) K/uL Sodium 140 (136-145) mmol/L Potassium 3.1 L (3.5-5.1) mmol/L Chloride 107 (98-107) mmol/L Carbon Dioxide 23 (21-32) mmol/L Anion Gap 10.0 (3-11) BUN 11 (7-18) mg/dl Creatinine 1.00 (0.6-1.4) mg/dl Est Cr Clr Drug Dosing 77.5 ml/min Est GFR ( Amer) 98.5 Est GFR (Non-Af Amer) 84.9 BUN/Creatinine Ratio 10.7 (10-20) Glucose 116 H (70-99) mg/dl POC Lactic Acid Simeon (0.90-1.70) mmol/L Calcium 8.5 (8.5-10.1) mg/dl Magnesium 1.8 (1.8-2.4) mg/dl Total Bilirubin 0.9 (0.2-1) mg/dl AST 52 H (15-37) U/L ALT 47 (12-78) U/L Alkaline Phosphatase 83 (45-117) U/L Troponin I < 0.015 (0-0.045) ng/ml Total Protein 7.1 (6.4-8.2) gm/dl Albumin 3.0 L (3.4-5.0) gm/dl Globulin 4.1 H (2.5-4.0) gm/dl Albumin/Globulin Ratio 0.7 L (0.9-2) Lipase 93 (73-393) U/L Procalcitonin 0.33 (0-0.5) ng/ml TSH 0.892 (0.300-4.500) uIu/ml Urine Color Urine Appearance (Clear) Urine pH (4.5-7.5) Ur Specific [place] (1.000-1.030) Urine Protein (Negative) Urine Glucose (UA) (Negative) Urine Ketones (Negative) Urine Blood (Negative) Urine Nitrite (Negative) Urine Bilirubin (Negative) Urine Urobilinogen (Negative) Ur Leukocyte Esterase (Negative) Influenza Type A (PCR) (Neg) Influenza Type B (PCR) (Neg) 03/09/19 03/09/19 03/09/19 Range/Units 00:49 02:35 03:49 WBC (4.8-10.8) K/uL RBC (4.7-6.1) M/uL Hgb (14.0-18.0) g/dL Hct (42-52) % MCV (80-100) fL MCH (25-34) pg MCHC (32-36) g/dL RDW Std Deviation (36.4-46.3) fL RDW Coeff of Angela (11.5-14.5) % Plt Count (130-400) K/uL MPV (7.4-10.4) fL Immature Gran % (Auto) % Neut % (Auto) % Lymph % (Auto) % [place] % (Auto) % Eos % (Auto) % Baso % (Auto) % Immature Gran # (Auto) (0.00-0.02) K/uL Neut # (Auto) (1.4-6.5) K/uL Lymph # (Auto) (1.2-3.4) K/uL [place] # (Auto) (0.11-0.59) K/uL Eos # (Auto) (0-0.5) K/uL Baso # (Auto) (0-0.2) K/uL Sodium (136-145) mmol/L Potassium (3.5-5.1) mmol/L Chloride (98-107) mmol/L Carbon Dioxide (21-32) mmol/L Anion Gap (3-11) BUN (7-18) mg/dl Creatinine (0.6-1.4) mg/dl Est Cr Clr Drug Dosing ml/min Est GFR ( Amer) Est GFR (Non-Af Amer) BUN/Creatinine Ratio (10-20) Glucose (70-99) mg/dl POC Lactic Acid Simeon 1.26 (0.90-1.70) mmol/L Calcium (8.5-10.1) mg/dl Magnesium (1.8-2.4) mg/dl Total Bilirubin (0.2-1) mg/dl AST (15-37) U/L ALT (12-78) U/L Alkaline Phosphatase (45-117) U/L Troponin I (0-0.045) ng/ml Total Protein (6.4-8.2) gm/dl Albumin (3.4-5.0) gm/dl Globulin (2.5-4.0) gm/dl Albumin/Globulin Ratio (0.9-2) Lipase (73-393) U/L Procalcitonin (0-0.5) ng/ml TSH (0.300-4.500) uIu/ml Urine Color Yellow Urine Appearance Clear (Clear) Urine pH 6.5 (4.5-7.5) Ur Specific [place] 1.029 (1.000-1.030) Urine Protein Negative (Negative) Urine Glucose (UA) Negative (Negative) Urine Ketones Negative (Negative) Urine Blood Negative (Negative) Urine Nitrite Negative (Negative) Urine Bilirubin Negative (Negative) Urine Urobilinogen Negative (Negative) Ur Leukocyte Esterase Negative (Negative) Influenza Type A (PCR) Neg for Influ A (Neg) Influenza Type B (PCR) Neg for Influ B (Neg) Imaging Data Attestation: I personally reviewed and interpreted this imaging study as follows: My Impression: SINGLE VIEW CHEST X-RAY: No cardiomegaly. No effusions. No wide mediastinum. Slightly increased interstitial markings along left heart border. No focal consolidation. No acute pulmonary edema. Patient rotated and hyperinflated. Radiologist's Impression: Radiology results as stated below per my review and the radiologist's interpretation: CTA CHEST: COMPARISON: None IMPRESSION: No acute pulmonary embolism. 4.2cm ectasia of the aortic root without dissection or pericardial effusion. Emphysema, focal right middle lobe/lingular perihilar opacities, and dependent right upper lobe greater than left upper lobe superior segment opacities which may reflect multilobar consolidation in the appropriate clinical setting. Noninfectious inflammatory process not excluded. Clinical correlation and follow up to document resolution recommended. No pleural effusion or pneumothorax, INCIDENTAL FINDINGS: Hilar lymphadenopathy may be reactive in nature. Attention on follow up to document stability/resolution. Prominent collateralization of the injected left upper extremity contrast bolus suggesting left subclavian vein stenosis. Radiologist: Lukas Haas MD. CT FACIAL: Nonspecific premental soft tissue swelling could reflect cellulitis or phlegmon in the appropriate clinical setting. 5mm midline soft tissue hypodensity (series 6, image 6) likely represents a small amount of normal appearing fat density. Small abscess considered unlikely, however, clinical and as needed imaging follow up to resolution recommended. No CT evidence of acute sialadenitis or displaced facial fracture. Trace left maxillary sinus fluid. Radiologist: Lukas Haas MD. ECG Data Attestation: I personally reviewed and interpreted this ECG as follows: Indication: chest pain Rate (beats per minute): 93 Rhythm: sinus rhythm Findings: + ST depression (in leads V2, V3, and V4 and a little in 2 and AVF); no PAC, no PVC and no ST elevation Comparison ECG Date: from (12/25/2012) Change: the following changes noted (Compared to prior, ST depressions are new.) Additional Comments: Normal axis, normal intervals. Blood Pressure Blood Pressure Findings: Normal blood pressure Blood Pressure Disposition: elevated BP felt to be situational MDM Narrative Patient here mildly ill-appearing, although no hypoxia or increased work of breathing. Patient with diminished breath sounds bilaterally, although I suspect this is more likely chronic related to his COPD. Patient was given a nebulizer treatment as a precaution. Labs drawn and sent, and chest x-ray performed. Questionable early infiltrate noted on the chest x-ray. Given the concern for an evolving facial cellulitis and imaging ordered for this, I added CT angiography of the chest for further evaluation. No PE, no enlarged aorta or dissection, no pericardial effusion, however multi lobar pneumonia was noted. No evidence of acute pulmonary edema and patient's clinical exam not consistent with congestive heart failure. Patient initially was given Rocephin to cover the evolving facial cellulitis and a possible community-acquired pneumonia before deciding on additional outpatient antibiotics. After results of CT were seen, IV Levaquin was added and I discussed with the patient additional inpatient management and he was in agreement. Patient and were made aware of all results and plan. Case was discussed with hospitalist for additional evaluation and management. Despite elevated white blood cell count, I do not suspect bacteremia/sepsis at this time. Blood cultures were drawn and sent prior to addition of IV Levaquin. Patient's lactic acid and procalcitonin were reassuring. No evidence of other organ dysfunction. Patient has had poor p.o. intake due to feeling ill, and was rehydrated here. Patient did receive 2 L of IV fluids initially to help with rehydration, and then the third liter was s lowed to a maintenance rate. I do not suspect other atypical infection such as tuberculosis, patient is not immunocompromised, and there is been no recent travel or other significant exposures. Impression & Plan Chest pain, Pneumonia, Dyspnea, Cellulitis of face, COPD (chronic obstructive pulmonary disease) Discharge Plan Visit Data Chief Complaint: Flu Like Symptoms Stated Complaint: PAIN, ACHING, COUGHING, FEVER OF 102.7 ED Provider: Kamila Simmons Discharge Problem: Chest pain, Pneumonia, Dyspnea, Cellulitis of face, COPD (chronic obstructive pulmonary disease) Patient Disposition: Being Evaluated by Hospitalist Discharge Instructions Interventions: ED Discharge Assessment Last Done: 03/09/19 04:48 Discharge Problem: Chest pain Qualifiers: Chest pain type: unspecified Qualified Code(s): R07.9 - Chest pain, unspecified Pneumonia Qualifiers: Pneumonia type: due to unspecified organism Laterality: bilateral Lung location: unspecified part of lung Qualified Code(s): J18.9 - Pneumonia, unspecified organism Dyspnea Qualifiers: Dyspnea type: shortness of breath Qualified Code(s): R06.02 - Shortness of breath COPD (chronic obstructive pulmonary disease) Qualifiers: COPD type: unspecified COPD Qualified Code(s): J44.9 - Chronic obstructive pulmonary disease, unspecified The scribe's documentation has been prepared under my direction and personally reviewed by me in its entirety. I confirm that the note above accurately reflects all work, treatment, procedures, and medical decision making performed by me.
[2019-03-09] MEDS ORDERED: POTASSIUM CHLORIDE 20 MEQ TABCR PO STA (03:16)
[2019-03-09] MEDS ORDERED: MAGNESIUM SULFATE / D5W 1 GM/100 ML BAG IV ONE (03:16)
[2019-03-09 03:40] LABS: Thyroid Stimulating Hormone 0.892 uIu/ml (0.300-4.500)
--- NOTE | 2019-03-09 04:17 | History & Physical Report ---
Date of Service March 09, 2019 Assessment & Plan (1) Sepsis: Possible sources: CAP Chin cellulitis COPD, ongoing tobacco abuse, Patient not wheezing/tachypneic/hypoxemic hx HTN, BP on the lower side recently started by PCP on lisinopril, patient yet to comply Aortic root ectasia chronic back pain, Surgery contemplated next month mood disorder, at baseline chronic anemia, hemoglobin at baseline Hyperglycemia rule out DM GMF Cultures, Ceftriaxone, Doxycycline Hold quinolone given aortic root ectasia on CT imaging Local measures for cellulitis, may need Surgery eval if abscess develops IVF nicotine patch Check hemoglobin A1c DVT prophylaxis. Lovenox subcu Full code History of Present Illness Chief Complaint: Cough, S OB Primary Care Provider: Lorena Schwarz, History obtained from patient, family, and records. Medical history significant for COPD, HTN, ongoing tobacco abuse, GERD, chronic back pain, mood disorder, chronic anemia (Baseline hemoglobin 12-13). Recent confinement November 2012 for chest pain secondary to viral illness. 3 days ago, patient developed flulike symptoms, cough productive of cruz sputum. Fever chills, worsening shortness of breath. Denies chest pain, nausea, vomiting, aspiration. Patient also developed a chin swelling which might have been from some shaving injury as per patient. Patient seen at PCP's office. Given Tamiflu for presumptive flu. Patient brought to the ER by for worsening symptoms. Patient received ceftriaxone, Levaquin for sepsis at the ER. Medical History as above No prior colonoscopies. Repeat laminectomy contemplated next month by [facility] spine orthopedics Surgical History : Back surgery Family History : Heart disease, asthma, ADHD, pancreatic cancer Personal/Social history : One pack daily, no EtOH intake, disabled Allergies Allergy/AdvReac Type Severity Reaction Status Date / Time cortisone Allergy Severe DROPPED Verified 03/09/19 01:04 B/P, PASSED OUT, BURNING SENSATION AT SITE. pollen extracts Allergy Intermediate SNEEZING, Verified 03/09/19 01:04 CONGESTION, COUGH. Iodinated Contrast Media AdvReac Intermediate GI Verified 03/09/19 01:04 SYMPTOMS--N/V Home Medications Home Medications Medication Instructions Recorded Confirmed Type dicyclomine 10 mg PO QID PRN 05/16/18 03/09/19 History loratadine 10 mg PO DAILY 05/16/18 03/09/19 History omeprazole 40 mg PO DAILY 05/16/18 03/09/19 History acetaminophen [Tylenol Extra 1,000 mg PO QID PRN 10/04/18 03/09/19 History Strength] naproxen sodium [Aleve] 440 mg PO BID PRN 10/04/18 03/09/19 History cyclobenzaprine 10 mg PO TID PRN #15 tab 02/10/19 03/09/19 Rx Past Med/Surg History Family History Other No significant family history Social History Preferred Language: Swazi Communication Ability: Effective Beliefs That Will Affect Care: None marital status: Current Living Situation: Spouse current occupational status: unemployed and disabled Other Information That Helps Us Care for You: No Feels Safe at Home: Yes Safety Concerns: Feels Safe At This Time Smoking Status: Current every day smoker Tobacco Type: cigarettes ; Cigarettes Per Day: 30 ; Do You Dip or Chew Tobacco: No ; Tobacco Cessation Education Requested by Patient: No Hx Alcohol Use: No Hx Substance Use: No Review of Systems Review of Systems: As per HPI, all 10 systems reviewed, usual backache, all other ROS negative Physical Exam Physical Exam: GENERAL: Slightly uncomfortable, wane, no respiratory distress SKIN: Pallor, warm HEENT: Pale palpebral conjunctivae, no ptosis, dry buccal mucosa; NECK : Supple, tender swelling submental area, no gross fluctuance CHEST : Decreased breath sounds, no tenderness HEART : RRR, no obvious murmurs ABDOMEN: Some distention, nontender EXTREMITIES : No LE swelling/tenderness, no other conspicuous deformities noted NEUROLOGIC : Coherent, no facial asymmetry, no other gross focality Results & Data Vital Signs (Past 12 Hours) Vital Signs Temp Pulse Pulse Resp BP BP Pulse Ox 03/09/19 04:11 36.5 C 97 H 18 134/80 96 03/09/19 02:56 77 18 96 03/09/19 02:08 71 16 118/72 95 03/09/19 00:14 36.9 C 122 H 20 97/64 L 96 Laboratory Results Laboratory Results WBC 18.52 K/uL (4.8-10.8) H 03/09/19 00:47 RBC 3.68 M/uL (4.7-6.1) L 03/09/19 00:47 Hgb 12.0 g/dL (14.0-18.0) L 03/09/19 00:47 Hct 34.6 % (42-52) L 03/09/19 00:47 MCV 94.0 fL (80-100) 03/09/19 00:47 MCH 32.6 pg (25-34) 03/09/19 00:47 MCHC 34.7 g/dL (32-36) 03/09/19 00:47 RDW Std Deviation 44.9 fL (36.4-46.3) 03/09/19 00:47 RDW Coeff of Angela 13.0 % (11.5-14.5) 03/09/19 00:47 Plt Count 237 K/uL (130-400) 03/09/19 00:47 MPV 10.2 fL (7.4-10.4) 03/09/19 00:47 Immature Gran % (Auto) 0.3 % 03/09/19 00:47 Neut % (Auto) 86.9 % 03/09/19 00:47 Lymph % (Auto) 6.9 % 03/09/19 00:47 [place] % (Auto) 5.7 % 03/09/19 00:47 Eos % (Auto) 0.1 % 03/09/19 00:47 Baso % (Auto) 0.1 % 03/09/19 00:47 Immature Gran # (Auto) 0.06 K/uL (0.00-0.02) H 03/09/19 00:47 Neut # (Auto) 16.11 K/uL (1.4-6.5) H 03/09/19 00:47 Lymph # (Auto) 1.27 K/uL (1.2-3.4) 03/09/19 00:47 [place] # (Auto) 1.05 K/uL (0.11-0.59) H 03/09/19 00:47 Eos # (Auto) 0.01 K/uL (0-0.5) 03/09/19 00:47 Baso # (Auto) 0.02 K/uL (0-0.2) 03/09/19 00:47 Sodium 140 mmol/L (136-145) 03/09/19 00:47 Potassium 3.1 mmol/L (3.5-5.1) L 03/09/19 00:47 Chloride 107 mmol/L (98-107) 03/09/19 00:47 Carbon Dioxide 23 mmol/L (21-32) 03/09/19 00:47 Anion Gap 10.0 (3-11) 03/09/19 00:47 BUN 11 mg/dl (7-18) 03/09/19 00:47 Creatinine 1.00 mg/dl (0.6-1.4) 03/09/19 00:47 Est Cr Clr Drug Dosing 77.5 ml/min 03/09/19 00:47 Est GFR ( Amer) 98.5 03/09/19 00:47 Est GFR (Non-Af Amer) 84.9 03/09/19 00:47 BUN/Creatinine Ratio 10.7 (10-20) 03/09/19 00:47 Glucose 116 mg/dl (70-99) H 03/09/19 00:47 POC Lactic Acid Simeon 1.26 mmol/L (0.90-1.70) 03/09/19 00:49 Calcium 8.5 mg/dl (8.5-10.1) 03/09/19 00:47 Magnesium 1.8 mg/dl (1.8-2.4) 03/09/19 00:47 Total Bilirubin 0.9 mg/dl (0.2-1) 03/09/19 00:47 AST 52 U/L (15-37) H 03/09/19 00:47 ALT 47 U/L (12-78) 03/09/19 00:47 Alkaline Phosphatase 83 U/L (45-117) 03/09/19 00:47 Troponin I < 0.015 ng/ml (0-0.045) 03/09/19 00:47 Total Protein 7.1 gm/dl (6.4-8.2) 03/09/19 00:47 Albumin 3.0 gm/dl (3.4-5.0) L 03/09/19 00:47 Globulin 4.1 gm/dl (2.5-4.0) H 03/09/19 00:47 Albumin/Globulin Ratio 0.7 (0.9-2) L 03/09/19 00:47 Lipase 93 U/L (73-393) 03/09/19 00:47 Procalcitonin 0.33 ng/ml (0-0.5) 03/09/19 00:47 TSH 0.892 uIu/ml (0.300-4.500) 03/09/19 00:47 Urine Color Yellow 03/09/19 02:35 Urine Appearance Clear (Clear) 03/09/19 02:35 Urine pH 6.5 (4.5-7.5) 03/09/19 02:35 Ur Specific [place] 1.029 (1.000-1.030) 03/09/19 02:35 Urine Protein Negative (Negative) 03/09/19 02:35 Urine Glucose (UA) Negative (Negative) 03/09/19 02:35 Urine Ketones Negative (Negative) 03/09/19 02:35 Urine Blood Negative (Negative) 03/09/19 02:35 Urine Nitrite Negative (Negative) 03/09/19 02:35 Urine Bilirubin Negative (Negative) 03/09/19 02:35 Urine Urobilinogen Negative (Negative) 03/09/19 02:35 Ur Leukocyte Esterase Negative (Negative) 03/09/19 02:[address] chest initial read: No acute pulmonary embolism. 4.2 cm ectasia of the aortic root without dissection or pericardial effusion. COPD, focal right middle lobe/lingular perihilar opacities and dependent right upper lobe greater than the left upper lobe superior segment opacities, multilobar consolidation. Hilar adenopathy. Prominent collateralization of injected left upper extremity contrast bolus suggesting left subclavian vein stenosis. CT face initial read: Pre-mental soft tissue swelling cellulitis or phlegmon. 5 mm midline soft tissue hypodensity likely represents small amount of normal-appearing fat density. Small abscess considered unlikely. EKG as per my interpretation rate 90, NSR, normal axis, incomplete right bundle branch block, upsloping ST depression anteroseptal leads
[2019-03-09 04:34] LABS: Influenza A virus by PCR Neg for Influ A (Neg); Influenza B virus by PCR Neg for Influ B (Neg)
[2019-03-09] MEDS ORDERED: DICYCLOMINE HCL 10 MG CAP PO PRN (05:13)
[2019-03-09] MEDS ORDERED: LEVALBUTEROL 1.25MG/0.5ML NEB INH PRN (05:13)
[2019-03-09] MEDS ORDERED: IPRATROPIUM BROMIDE NEB SOLN 0.02% 2.5 ML VIAL INH PRN (05:13)
[2019-03-09] MEDS ORDERED: LACTATED RINGER'S 1,000 ML IV ONE ×2 (05:13→07:06)
[2019-03-09] MEDS ORDERED: XOPENEX/ATROVENT 1.25mg/0.5MG NEB COMBO NEB PRN (05:13)
[2019-03-09] MEDS ORDERED: DOXYCYCLINE HYCLATE 100 MG in DEXTROSE 5% 100 ML IV ONE (05:30)
[2019-03-09] MEDS ORDERED: CYCLOBENZAPRINE HCL 10 MG TAB PO PRN (05:30)
[2019-03-09] MEDS: ACETAMINOPHEN 325 MG TAB PO PRN ×2 (05:53→23:12)
[2019-03-09 05:59] LABS: Estimated Average Glucose 105 mg/dl; Hemoglobin A1C 5.3 % (4.5-5.6)
[2019-03-09] MEDS ORDERED: KETOROLAC TROMETHAMINE 15 MG/ML VIAL IV ONE (06:37)
--- NOTE | 2019-03-09 07:34 | XRay Report ---
XR chest 1V portable CLINICAL HISTORY: 53 years-old Male presenting with cough, chest pain. TECHNIQUE: Portable upright AP view of the chest was obtained. COMPARISON: 06/25/2016. FINDINGS: Cardiomediastinal silhouette normal. Mild vague reticular opacities with a basilar predominance. No o ther focal opacity. No large effusion or pneumothorax.. No large effusion or pneumothorax. Degenerati ve changes of the thoracic spine. Upper abdomen normal. IMPRESSION: 1. Vague reticular bibasilar infiltrates. This may suggest underlying chronic lung disease. Superimp osed infiltrate is difficult to exclude. Electronically signed by: Enrico Whitney M.D. 03/09/2019 7:32 AM
--- NOTE | 2019-03-09 08:07 | CT Scan Report ---
CT SCAN OF THE FACIAL BONES WITH IV CONTRAST CLINICAL HISTORY: Facial infection. Swelling. COMPARISON STUDY: No priors. TECHNIQUE: High-resolution CT scan of the facial bones is performed following the IV administration of 91 cc of Optiray 320. Images are reviewed in the axial, sagittal, and coronal planes. IV contrast was administered without complication. A dose lowering technique was utilized adhering to the princi ples of ALARA. FINDINGS: The skeletal structures are well mineralized. There is no evidence of facial bone fracture. The bony orbits are intact and the orbital contents are within normal limits. The zygomatic arches, nasal bones, and pterygoid plates are preserved. The maxilla and mandible are intact. There are no la yering blood products within the paranasal sinuses. There is fluid/secretions within the left maxilla ry antrum with trace mucosal thickening. The remaining paranasal sinuses are clear. The mastoid air c ells are well pneumatized. The visualized calvarium and upper cervical spine are maintained. Partiall y imaged brain parenchyma is within normal limits. The patient is edentulous. There is mild dermal th ickening and soft tissue induration identified in the soft tissues of the chin. No organized fluid co llection is seen to suggest abscess. The pharyngeal soft tissues are normal as visualized. The paroti d and submandibular glands are within normal limits. IMPRESSION: 1. There is dermal thickening and soft tissue induration identified involving the soft tissues of the chin. Correlate clinically for evidence of cellulitis. 2. No organized fluid collection is seen to indicate abscess. 3. The patient is edentulous. 4. No osseous abnormality is identified. Electronically signed by: Spenser Tobias M.D. 03/09/2019 8:06 AM
--- NOTE | 2019-03-09 08:16 | CT Scan Report ---
CT angio chest PE protocol CLINICAL HISTORY: 53 years-old Male presenting with bilateral chest pain, atypical chest pain. TECHNIQUE: Multidetector CT angiography of the chest was performed after administration of intravenou s contrast. 3-D volumetric and/or maximum intensity projection (MIP) images were subsequently reconst ructed for review. IV contrast: 91 mL of Optiray 320. One or more dose lowering techniques were used consistent with the principles of ALARA (as low as reasonably achievable), including automatic exposu re control, mA or kV adjustment to individual patient size, and/or use of iterative reconstruction. COMPARISON: Chest x-ray from earlier today. CT DOSE (mGy.cm): The estimated cumulative dose is 565.91 mGy.cm. FINDINGS: Insolvency Practitioner topogram: Unremarkable. Pulmonary vasculature: The study is suboptimal for the assessment of the pulmonary vascular tree secondary to timing of the contrast bolus. No filling defect within the pulmonary arteries to suggest embolus. Main pulmonary ar bebe is not enlarged. No flattening of the interventricular septum. No intracardiac filling defect. N o reflux of contrast into the hepatic veins. Remaining chest: Soft tissues: Normal thyroid and thoracic inlet. Prominent bilateral hilar lymph nodes. Scattered sub centimeter mediastinal lymph nodes nonspecific. Trace atherosclerosis of the descending thoracic aort a. Minimal ectasia of the ascending aorta, which measures 4.1 cm in diameter. Normal heart size. Wiliam nary artery calcification. No pericardial or pleural effusion. Upper abdomen normal. Lungs and airways: No pneumothorax. Central airways patent. Pulmonary arteries are not significantly enlarged relative to adjacent bronchi. No interlobular septal thickening. Centrilobular emphysema dif fusely to a moderate to severe degree. Multifocal patchy consolidation involving the central right up per lobe, superior segment of the right lower lobe, superior segment of the left lower lobe, and infe rior segment of the lingula. Solid subpleural 3 mm nodule in the medial basal left lower lobe (series 4 image 163) solid peripheral 4 mm nodule in the lateral basal left lower lobe (series 4 image 165). Musculoskeletal: Degenerative changes of the spine. IMPRESSION: 1. No evidence of pulmonary embolus. 2. Multifocal consolidation most concerning for infectious pneumonia. These do not appear to represe nt pulmonary infarcts. Noninfectious inflammatory etiology is also possible. 3. Reactive bilateral hilar lymphadenopathy. 4. Multiple solid pulmonary nodules measuring up to 4 mm. Follow-up per Fleischner Society 2017 jaelyn mmendations below. 5. Minimal ectasia of the ascending aorta, which measures 4.1 cm in diameter. Summary of Fleischner Society 2017 Recommendations (H Pratima et al. Guidelines for management of i ncidental pulmonary nodules detected on CT images: From the Fleischner Society 2017. Radiology 2017; 284: 228-243.) SOLID NODULES Single nodule; size < 6 mm * Low risk patients: No routine follow-up * High risk patients: Optional CT at 12 months Single nodule; size 6-8 mm * Low risk patients: CT at 6-12 months, then consider CT at 18-24 months * High risk patients: CT at 6-12 months, then at 18-24 months Single nodule; size > 8 mm * Either low or high risk patients: Considered CT at 3 months, PET/CT, or tissue sampling Multiple nodules; size < 6 mm * Low risk patients: No routine follow up * High risk patients: Optional CT at 12 months Multiple nodules; size 6-8 mm * Low risk patients: CT at 3-6 months, then consider CT at 18-24 months * High risk patients: CT at 3-6 months, then at 18-24 months Multiple nodules; size > 8 mm * Low risk patients: CT at 3-6 months, then consider at 18-24 months * High risk patients: CT at 3-6 months, then at 18-24 months SUBSOLID NODULES Single ground-glass nodule * Nodule size < 6 mm: No routine follow-up * Nodule size > or = 6 mm: CT at 6-12 months to confirm persistence, then CT every 2 years until 5 y ears Single part-solid nodule * Nodule size < 6 mm: No routine follow-up * Nodules size > or = 6 mm: CT at 3-6 months to confirm persistence. If unchanged and solid componen t remains < 6 mm, annual CT should be performed for 5 years Multiple nodules * Nodule size < 6 mm: CT at 3-6 months. If stable, consider CT at 2 and 4 years. * Nodules size > or = 6 mm: CT at 3-6 months. Subsequent management based on the most suspicious nod ule(s) NOTE: 1) These guidelines apply to incidental nodules. These guidelines do NOT apply to patients younger th an 35 years, immunocompromised patients, or patients with cancer. 2) Risk categories: * Low risk patients: Minimal or absent history of smoking and/or other known risk factors * High risk patients: History of smoking, exposure to other carcinogens, emphysema, fibrosis, upper lobe location, family history of lung cancer, etc. 3) If a nodule up to 8 mm is partly solid or is ground glass, further follow-up is required after 24 months to exclude possible slow growing adenocarcinoma. Electronically signed by: Enrico Whitney M.D. 03/09/2019 8:14 AM
[2019-03-09] MEDS: LORATADINE 10 MG TAB PO SCH (08:41)
[2019-03-09] MEDS: ENOXAPARIN INJ 30 MG/0.3 ML SYR SQ SCH (08:42)
[2019-03-09] MEDS: PANTOprazole 40 MG TAB PO SCH (08:42)
[2019-03-09] MEDS ORDERED: XOPENEX/ATROVENT 0.63mg/0.5MG NEB COMBO NEB SCH (08:45)
[2019-03-09] MEDS ORDERED: PIPERACILL/TAZOBAC CONSULT ACTIVE PRN (09:10)
[2019-03-09] MEDS ORDERED: PIPERACILLIN/TAZOBACTAM 3.375 GM in DEXTROSE 5% 100 ML IV ONE (09:30)
[2019-03-09] MEDS: NICOTINE 21 MG/24 HR TDSY TD PRN (09:40)
[2019-03-09 09:45] LABS: BUN Creatinine Ratio 10.8 (10-20); Calcium 7.9 mg/dl (8.5-10.1); Creatinine Clr Calc Pharmacy 89.4 ml/min; Est GFR (African American) 102.2; Est GFR (Non-African American) 88.1; Potassium 3.4 mmol/L (3.5-5.1)
[2019-03-09] MEDS ORDERED: TRAMADOL HCL 50 MG TABLET PO STA (12:47)
[2019-03-09] MEDS: LEVALBUTEROL HCL 0.63 MG/3 ML NEB NEB SCH ×2 (13:28→19:21)
[2019-03-09] MEDS: IPRATROPIUM BROMIDE NEB SOLN 0.02% 2.5 ML VIAL INH SCH ×2 (13:28→19:21)
--- NOTE | 2019-03-09 16:01 | Magnetic Resonance Report ---
MR thoracic spine wo con CLINICAL HISTORY: persistent, severe back pain PRIOR STUDIES: CT scan performed February 2014, CT scan of chest performed February 2019 TECHNIQUE: MR scanning of the thoracic spine was performed using multiple pulse sequences. No gadoli nium was administered. FINDINGS: There are no suspicious areas of marrow replacement. There is a focal fatty rest/hemangioma at the T1 2 level. No thoracic cord lesions are visualized. There are mild multilevel degenerative changes. No focal disc herniations are visualized. There is no evidence for spinal stenosis. There are small bilateral pleural effusions. There are lower lobe dependent airspace opacities. IMPRESSION: 1. Mild degenerative change 2. No evidence of metastatic disease 3. No acute fractures 4. No evidence spinal stenosis 5. Small bilateral pleural effusions and dependent pulmonary airspace opacities Electronically signed by: Rosalio Bergeron M.D. 03/09/2019 3:59 PM
[2019-03-09] MEDS: HYDROCODONE/ACETAMOPHEN 5/325MG TAB PO PRN ×2 (16:17→22:28)
[2019-03-09] MEDS: PIPERACILLIN/TAZOBACTAM 3.375 GM in DEXTROSE 5% 100 ML IV SCH (16:18)
--- NOTE | 2019-03-09 17:55 | Hospitalist Progress Note ---
Date of Service March 09, 2019 Assessment & Plan (1) Sepsis: Possible sources: Community-acquired pneumonia Lactic acid level normal Follow-up cultures Continue Zosyn plus doxycycline Chin cellulitis No abscess on CAT scan Continue Zosyn plus doxycycline COPD, ongoing tobacco abuse Not seem to be an exacerbation History of HTN BP on the lower side recently started by PCP on lisinopril, patient yet to comply Aortic root ectasia CT scan of the chest noted, no dissection noted Avoid Levaquin Non specific EKG changes denies chest pain check troponin check echo Chronic back pain Surgery contemplated next month Having pain over the thoracic spine MRI thoracic spine: no fractures, (+) OA PRN analgesics ordered Mood disorder stable chronic anemia, hemoglobin at baseline DVT prophylaxis. Lovenox subcu Full code Subjective ff up for pneumonia seen resting in bed, uncomfortable due to back pain states breathing and cough improved today compared to yesterday cannot expectorate sputum denies chest pain, dyspnea, palpitations, dizziness no other symtpoms Review of Systems Review of Systems: All systems reviewed & are unremarkable except as noted in HPI & below Physical Exam Physical Exam: General- oriented x 3, not in distress, speaks in sentences with no effort or accessory muscle use Head- atraumatic Eyes- PERRL, EOMI, anicteric ENT- oropharynx clear Neck- supple, no JVD, no adenopathy, no thyromegaly; carotids +2/2, no bruits appreciated Lungs- clear to auscultation bilaterally, no rales/wheezes Heart- normal rate, regular rhythm; no murmur, no gallop, no rub appreciated Abdomen- normal bowel sounds, nondistended, soft, nontender, no masses or hepatosplenomegaly Extremities- no pretibial edema, no calf tenderness; peripheral pulses intact Back- no edema/tenderness/warmth Neuro- alert, oriented x 3; CN 2-12 grossly intact; motor 5/5 bilaterally;sensation 100% on all extremities; no other gross focal neurologic deficits Skin- warm & dry Results & Data Vital Signs (Past 12 Hours) Vital Signs Temp Pulse Resp BP Pulse Ox 03/09/19 17:00 37.6 C H 91 H 20 131/75 91 03/09/19 13:29 90 16 91 03/09/19 07:51 37.5 C 03/09/19 06:58 37.7 C H 106 H 18 135/67 90 03/09/19 06:34 39.4 C H Laboratory Results Laboratory Results - last 24 hr 03/09/19 03/09/19 03/09/19 00:47 00:47 00:47 WBC 18.52 H RBC 3.68 L Hgb 12.0 L Hct 34.6 L MCV 94.0 MCH 32.6 MCHC 34.7 RDW Std Deviation 44.9 RDW Coeff of Angela 13.0 Plt Count 237 MPV 10.2 Immature Gran % (Auto) 0.3 Neut % (Auto) 86.9 Lymph % (Auto) 6.9 [place] % (Auto) 5.7 Eos % (Auto) 0.1 Baso % (Auto) 0.1 Immature Gran # (Auto) 0.06 H Neut # (Auto) 16.11 H Lymph # (Auto) 1.27 [place] # (Auto) 1.05 H Eos # (Auto) 0.01 Baso # (Auto) 0.02 Sodium 140 Potassium 3.1 L Chloride 107 Carbon Dioxide 23 Anion Gap 10.0 BUN 11 Creatinine 1.00 Est Cr Clr Drug Dosing 77.5 Est GFR ( Amer) 98.5 Est GFR (Non-Af Amer) 84.9 BUN/Creatinine Ratio 10.7 Glucose 116 H Estimat Average Glucose Hemoglobin A1c POC Lactic Acid Simeon Calcium 8.5 Magnesium 1.8 Total Bilirubin 0.9 AST 52 H ALT 47 Alkaline Phosphatase 83 Troponin I < 0.015 Total Protein 7.1 Albumin 3.0 L Globulin 4.1 H Albumin/Globulin Ratio 0.7 L Lipase 93 Procalcitonin 0.33 TSH 0.892 Urine Color Urine Appearance Urine pH Ur Specific [place] Urine Protein Urine Glucose (UA) Urine Ketones Urine Blood Urine Nitrite Urine Bilirubin Urine Urobilinogen Ur Leukocyte Esterase Influenza Type A (PCR) Influenza Type B (PCR) 03/09/19 03/09/19 03/09/19 00:47 00:49 02:35 WBC RBC Hgb Hct MCV MCH MCHC RDW Std Deviation RDW Coeff of Angela Plt Count MPV Immature Gran % (Auto) Neut % (Auto) Lymph % (Auto) [place] % (Auto) Eos % (Auto) Baso % (Auto) Immature Gran # (Auto) Neut # (Auto) Lymph # (Auto) [place] # (Auto) Eos # (Auto) Baso # (Auto) Sodium Potassium Chloride Carbon Dioxide Anion Gap BUN Creatinine Est Cr Clr Drug Dosing Est GFR ( Amer) Est GFR (Non-Af Amer) BUN/Creatinine Ratio Glucose Estimat Average Glucose 105 Hemoglobin A1c 5.3 POC Lactic Acid Simeon 1.26 Calcium Magnesium Total Bilirubin AST ALT Alkaline Phosphatase Troponin I Total Protein Albumin Globulin Albumin/Globulin Ratio Lipase Procalcitonin TSH Urine Color Yellow Urine Appearance Clear Urine pH 6.5 Ur Specific [place] 1.029 Urine Protein Negative Urine Glucose (UA) Negative Urine Ketones Negative Urine Blood Negative Urine Nitrite Negative Urine Bilirubin Negative Urine Urobilinogen Negative Ur Leukocyte Esterase Negative Influenza Type A (PCR) Influenza Type B (PCR) 03/09/19 03/09/19 03:49 08:57 WBC RBC Hgb Hct MCV MCH MCHC RDW Std Deviation RDW Coeff of Angela Plt Count MPV Immature Gran % (Auto) Neut % (Auto) Lymph % (Auto) [place] % (Auto) Eos % (Auto) Baso % (Auto) Immature Gran # (Auto) Neut # (Auto) Lymph # (Auto) [place] # (Auto) Eos # (Auto) Baso # (Auto) Sodium 141 Potassium 3.4 L Chloride 113 H Carbon Dioxide 20 L Anion Gap 9.0 BUN 11 Creatinine 0.97 Est Cr Clr Drug Dosing 89.4 Est GFR ( Amer) 102.2 Est GFR (Non-Af Amer) 88.1 BUN/Creatinine Ratio 10.8 Glucose 146 H Estimat Average Glucose Hemoglobin A1c POC Lactic Acid Simeon Calcium 7.9 L Magnesium Total Bilirubin AST ALT Alkaline Phosphatase Troponin I Total Protein Albumin Globulin Albumin/Globulin Ratio Lipase Procalcitonin TSH Urine Color Urine Appearance Urine pH Ur Specific [place] Urine Protein Urine Glucose (UA) Urine Ketones Urine Blood Urine Nitrite Urine Bilirubin Urine Urobilinogen Ur Leukocyte Esterase Influenza Type A (PCR) Neg for Influ A Influenza Type B (PCR) Neg for Influ B
[2019-03-09] MEDS: SODIUM CHLORIDE 0.9% 1000ML 1,000 ML IV SCH (20:34)
[2019-03-09] MEDS: POTASSIUM CHLORIDE 10 MEQ TABCR PO SCH (20:34)
[2019-03-09] MEDS ORDERED: DOXYCYCLINE HYCLATE 100 MG CAP PO SCH (21:00)
[2019-03-10] MEDS: PIPERACILLIN/TAZOBACTAM 3.375 GM in DEXTROSE 5% 100 ML IV SCH ×3 (00:04→15:57)
[2019-03-10] MEDS: LEVALBUTEROL HCL 0.63 MG/3 ML NEB NEB SCH ×4 (01:05→19:13)
[2019-03-10] MEDS: IPRATROPIUM BROMIDE NEB SOLN 0.02% 2.5 ML VIAL INH SCH ×4 (01:05→19:11)
[2019-03-10] MEDS ORDERED: cefTRIAXone SODIUM 1,000 MG in DEXTROSE 5% 50 ML IV SCH (02:00)
[2019-03-10] MEDS: HYDROCODONE/ACETAMOPHEN 5/325MG TAB PO PRN ×4 (05:50→20:18)
[2019-03-10] MEDS ORDERED: VANCOMYCIN CONSULT ACTIVE PRN (05:52)
[2019-03-10] MEDS ORDERED: VANCOMYCIN HCL 1,750 MG in SODIUM CHLORIDE 0.9% 500 ML IV ONE (06:00)
[2019-03-10 06:57] LABS: Basophils # (auto) 0.02 K/uL (0-0.2); Basophils % (auto) 0.1 %; Eosinophils # (auto) 0.01 K/uL (0-0.5); Eosinophils % (auto) 0.1 %; Hematocrit (blood only) 30.3 % (42-52); Immature Granulocytes # (auto) 0.07 K/uL (0.00-0.02); Immature Granulocytes % (auto) 0.4 %; Lymphocytes # (auto) 1.56 K/uL (1.2-3.4); Mean Corpuscular Hemoglobin 31.7 pg (25-34); Mean Corpuscular Volume 96.2 fL (80-100); Mean Platelet Volume 10.4 fL (7.4-10.4); Monocytes # (auto) 1.04 K/uL (0.11-0.59); Monocytes % (auto) 6.7 %; Neutrophils # (auto) 12.91 K/uL (1.4-6.5); Neutrophils % (auto) 82.7 %; Platelet Count 188 K/uL (130-400); RDW Coefficient of Variation 13.5 % (11.5-14.5); RDW Standard Deviation 47.4 fL (36.4-46.3); Red Blood Count 3.15 M/uL (4.7-6.1); White Blood Count 15.61 K/uL (4.8-10.8)
[2019-03-10 07:29] LABS: BUN Creatinine Ratio 16.1 (10-20); Calcium 8.2 mg/dl (8.5-10.1); Creatinine Clr Calc Pharmacy 98.5 ml/min; Est GFR (African American) 112.9; Est GFR (Non-African American) 97.4; Potassium 4.1 mmol/L (3.5-5.1)
--- NOTE | 2019-03-10 07:43 | Pharmacy Report ---
Pharmacy Abx Initial Consult - Date of Service March 10, 2019 - Pharmacy Dosing Scope Date of Consult: 03/10/19 Consultation requested by: Dr. Jean Pharmacy is consulted to initiate Vancomycin IV dosing therapy, order appropriate labs and adjust drug dose/frequency. - Subjective The patient is a 53 year old M admitted on 03/09/19 04:19 with sepsis, possible sources CAP or chin cellulitis. Started on IV Zosyn and PO Doxycycline. Avoiding Levaquin for aortic root ectasia, no dissection noted. Now with Gram positive cocci clusters growing in 1/2 blood cultures. MRSA PCR Positive. Starting IV Vancomycin, stop doxycycline. . - Objective Height: 6 ft Weight: 72.6 kg Vital Signs (Past 12hrs): Vital Signs Temp Pulse Resp BP Pulse Ox 03/10/19 07:22 86 18 91 03/10/19 07:09 36.8 C 84 16 112/72 90 03/10/19 02:27 36.8 C 03/10/19 01:10 20 98 03/09/19 23:58 38 C H 85 94 03/09/19 23:18 92 03/09/19 23:07 39.5 C H 93 H 20 113/73 88 L Lab Results (24hrs): Laboratory Tests (24 Hours) 03/10/19 03/10/19 03/09/19 06:07 06:07 08:57 WBC 15.61 H Neut # (Auto) 12.91 H Creatinine 0.88 0.97 Est Cr Clr Drug Dosing 98.5 89.4 - Assessment & Plan Assessment 53 year old M admitted with sepsis, possible sources CAP or chin cellulitis. Started on IV Zosyn and PO Doxycycline. Avoiding Levaquin for aortic root ectasia, no dissection noted. Now with Gram positive cocci clusters growing in 1/2 blood cultures. MRSA PCR Positive. Plan Vancomycin for treatment of bacteremia. Vancomycin IV * Estimated PK Parameters: Vd 0.7 L/kg, Cesar 0.078 hr-1, t1/2 8hr * Loading dose: 1750 mg (24 mg/kg) * Maintenance dose: 1250 mg IV (17 mg/kg) every 8 hours * Goal trough level for bacteremia : 15 to 20 mcg/mL * Trough level ordered for 03/11/19 Piperacillin/tazobactam * 3.375 g bolus administered over 30 minutes, then 3.375 g IV extended infusion every 8 hours for CrCl greater than 20 mL/min Pharmacy will continue to follow and will adjust dose/frequency as necessary. Thank you.
[2019-03-10] MEDS: SODIUM CHLORIDE 0.9% 1000ML 1,000 ML IV SCH ×2 (07:48→20:18)
[2019-03-10] MEDS: POTASSIUM CHLORIDE 10 MEQ TABCR PO SCH (07:51)
[2019-03-10] MEDS: LORATADINE 10 MG TAB PO SCH (07:51)
[2019-03-10] MEDS: PANTOprazole 40 MG TAB PO SCH (07:51)
[2019-03-10] MEDS: ENOXAPARIN INJ 30 MG/0.3 ML SYR SQ SCH (07:52)
--- NOTE | 2019-03-10 09:33 | Infectious Disease Consult ---
Date of Consultation March 10, 2019 Assessment & Plan (1) Pneumonia: continue abx, follow culture results. will check sputum culture as well. repeat blood cultures. will need echo r/o veg. maintain vanco trough 15-20. Additional abx recs based on final culture results. 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 CTA done in ER, revealed multiple nodules and RUL infiltrate. Significant fevers overnight, tmax 39.5, admits to shaking chills overnight. blood cultures done upon admission, 1/2 sets now growing gpc, pcr + S. aureus. MRI spine negative. UA negative, Initial wbc 18, improved to 15 today. he was started on zosyn and vanco and is tolerating well. creat 0.8. He states he feels about the same today, no f/c currently, no sob, no holley, but pleuritic cp L>R. no abd pain, no n/v/d. no gu symptoms. no rash. states daughter was sick recently. flu swab negative in ER. ID consulted for + blood cultures. Allergies Allergy/AdvReac Type Severity Reaction Status Date / Time cortisone Allergy Severe DROPPED Verified 03/09/19 01:04 B/P, PASSED OUT, BURNING SENSATION AT SITE. pollen extracts Allergy Intermediate SNEEZING, Verified 03/09/19 01:04 CONGESTION, COUGH. Iodinated Contrast Media AdvReac Intermediate GI Verified 03/09/19 01:04 SYMPTOMS--N/V Home Medications Home Medications Medication Instructions Recorded Confirmed Type dicyclomine 10 mg PO QID PRN 05/16/18 03/09/19 History loratadine 10 mg PO DAILY 05/16/18 03/09/19 History omeprazole 40 mg PO DAILY 05/16/18 03/09/19 History acetaminophen [Tylenol Extra 1,000 mg PO QID PRN 10/04/18 03/09/19 History Strength] naproxen sodium [Aleve] 440 mg PO BID PRN 10/04/18 03/09/19 History cyclobenzaprine 10 mg PO TID PRN #15 tab 02/10/19 03/09/19 Rx Patient History Medical History GERD (gastroesophageal reflux disease) (Chronic) Chronic lumbar pain (Chronic) Surgical History History of back surgery (Resolved) Family History Other No significant family history Social History Preferred Language: Indian Communication Ability: Effective Beliefs That Will Affect Care: None marital status: Current Living Situation: Spouse current occupational status: unemployed and disabled Other Information That Helps Us Care for You: No Feels Safe at Home: Yes Safety Concerns: Feels Safe At This Time Smoking Status: Current every day smoker Tobacco Type: cigarettes ; Cigarettes Per Day: 30 ; Do You Dip or Chew Tobacco: No ; Tobacco Cessation Education Requested by Patient: No Hx Alcohol Use: No Hx Substance Use: No Review of Systems Review of Systems: All systems reviewed & are unremarkable except as noted in HPI & below Physical Exam Constitutional: WD/WN, vitals as above Eyes: PERRL, conjunctivae normal, anicteric sclerae ENMT: external ear and nose normal, oropharynx normal Neck: normal visual inspection Respiratory: normal respiratory effort, lungs clear to auscultation Cardiovascular: RRR, no murmur, no edema Gastrointestinal (Abdomen): normal bowel sounds, soft, nontender, no hepatosplenomegaly Musculoskeletal: no cyanosis or clubbing, extremities motor strength 5/5 Skin: no rashes, warm and dry Psychiatric: A+Ox3, euthymic affect Results & Data Vital Signs (Past 12 Hours) Vital Signs Temp Pulse Resp BP Pulse Ox 03/10/19 07:22 86 18 91 03/10/19 07:09 36.8 C 84 16 112/72 90 03/10/19 02:27 36.8 C 03/10/19 01:10 20 98 03/09/19 23:58 38 C H 85 94 03/09/19 23:18 92 03/09/19 23:07 39.5 C H 93 H 20 113/73 88 L Laboratory Results Microbiology 03/09/19 03:00 Blood Aerobic Blood Culture - Preliminary Gram positive cocci clusters 03/09/19 03:00 Blood Anaerobic Blood Culture - Preliminary No growth in Anaerobic bottle after 24 hours. 03/09/19 03:09 Blood Aerobic Blood Culture - Preliminary No growth in Aerobic bottle after 24 hours. 03/09/19 03:09 Blood Anaerobic Blood Culture - Preliminary No growth in Anaerobic bottle after 24 hours. PG Care Time/CCT Total # of Minutes Spent Total Time Spent with Patient: Total time spent is greater than 50% in coordination of care (as documented) at patient's floor/unit and/or counseling patient: (1) Pneumonia Laterality: bilateral Lung location: unspecified part of lung Pneumonia type: due to unspecified organism Qualified Code(s): J18.9 - Pneumonia, unspe cified organism
[2019-03-10] MEDS: TRAMADOL HCL 50 MG TABLET PO PRN (10:57)
[2019-03-10] MEDS: VANCOMYCIN HCL 1,250 MG in SODIUM CHLORIDE 0.9% 250 ML IV SCH ×2 (12:00→20:00)
[2019-03-10] MEDS: NICOTINE 21 MG/24 HR TDSY TD PRN (12:02)
[2019-03-10] MEDS ORDERED: KETOROLAC TROMETHAMINE 15 MG/ML VIAL IV ONE (14:43)
--- NOTE | 2019-03-10 14:44 | Hospitalist Progress Note ---
Date of Service March 10, 2019 Assessment & Plan (1) Sepsis: Possible sources: Community-acquired pneumonia Lactic acid level normal blood cultures 03/08: (+) gram positive cocci in clusters, (+) MRSA per PCR repeat blood cultures 03/09: pending sputum culture: pending Vancomycin added, Day 1 Zosyn continued, Day 2 echo pending ID consulted, appreciate the recommendations Chin cellulitis No abscess on CAT scan but does have purulent drainage today check wound cullture Continue Vancomycin + Zosyn Back Pain Thoracic Spine MRI: no acute fracture, disc herniation muscular pain? will add Toradol PRN for pain if persistent, will order MRI with contrast COPD, ongoing tobacco abuse Not seem to be an exacerbation History of HTN BP on the lower side recently started by PCP on lisinopril, patient yet to comply Aortic root ectasia CT scan of the chest noted, no dissection noted Avoid Levaquin Non specific EKG changes denies chest pain echo: no wall motion abnormalities, Grade 2 diastolic dysfunction Chronic back pain Surgery contemplated next month Having pain over the thoracic spine MRI thoracic spine: no fractures, (+) OA PRN analgesics ordered Mood disorder stable chronic anemia, hemoglobin at baseline DVT prophylaxis. Lovenox subcu Full code Disposition lives with family at home will order PT/OT eval Subjective ff up for pneumonia seen resting in bedside chair appears less weak today back pain still persistent, mildly improved, mostly left shoulder blade area, tender to touch no dyspnea, still has intermittent productive cough minimal pain on the chin, but does report copious yellow drainage today no other symptoms Review of Systems Review of Systems: All systems reviewed & are unremarkable except as noted in HPI & below Physical Exam Physical Exam: General- oriented x 3, not in distress, speaks in sentences with no effort or accessory muscle use Head- moderate edema, erythema, small opening with scant yellow drainage on the chin Eyes- anicteric Neck- no JVD Lungs- mild rales at the base, no wheezing Heart- normal rate, regular rhythm; no murmurs Abdomen- normal bowel sounds, nondistended, soft, nontender Back- (+) tenderness to palpation of the right shoulder blade region Extremities- no pretibial edema, no calf tenderness Neuro- alert, oriented x 3; no gross focal neurologic deficits Skin- warm & dry Results & Data Vital Signs (Past 12 Hours) Vital Signs Temp Pulse Resp BP Pulse Ox 03/10/19 13:30 86 16 90 03/10/19 07:22 86 18 91 03/10/19 07:09 36.8 C 84 16 112/72 90 Laboratory Results Laboratory Results - last 24 hr 03/09/19 03/10/19 03/10/19 03:00 06:07 06:07 WBC 15.61 H RBC 3.15 L Hgb 10.0 L Hct 30.3 L MCV 96.2 MCH 31.7 MCHC 33.0 RDW Std Deviation 47.4 H RDW Coeff of Angela 13.5 Plt Count 188 MPV 10.4 Immature Gran % (Auto) 0.4 Neut % (Auto) 82.7 Lymph % (Auto) 10.0 [place] % (Auto) 6.7 Eos % (Auto) 0.1 Baso % (Auto) 0.1 Immature Gran # (Auto) 0.07 H Neut # (Auto) 12.91 H Lymph # (Auto) 1.56 [place] # (Auto) 1.04 H Eos # (Auto) 0.01 Baso # (Auto) 0.02 Sodium Potassium Chloride Carbon Dioxide Anion Gap BUN Creatinine Est Cr Clr Drug Dosing Est GFR ( Amer) Est GFR (Non-Af Amer) BUN/Creatinine Ratio Glucose Calcium Hepatitis C Ab Screen Neg Bld Cult Staph aureus PCR Positive A Blood Culture MRSA PCR Positive A 03/10/19 06:07 WBC RBC Hgb Hct MCV MCH MCHC RDW Std Deviation RDW Coeff of Angela Plt Count MPV Immature Gran % (Auto) Neut % (Auto) Lymph % (Auto) [place] % (Auto) Eos % (Auto) Baso % (Auto) Immature Gran # (Auto) Neut # (Auto) Lymph # (Auto) [place] # (Auto) Eos # (Auto) Baso # (Auto) Sodium 139 Potassium 4.1 D Chloride 110 H Carbon Dioxide 23 Anion Gap 6.0 BUN 14 Creatinine 0.88 Est Cr Clr Drug Dosing 98.5 Est GFR ( Amer) 112.9 Est GFR (Non-Af Amer) 97.4 BUN/Creatinine Ratio 16.1 Glucose 99 Calcium 8.2 L Hepatitis C Ab Screen Bld Cult Staph aureus PCR Blood Culture MRSA PCR
[2019-03-10] MEDS: LIDOCAINE 5% 1 PATCH TD SCH (18:43)
[2019-03-10] MEDS: KETOROLAC TROMETHAMINE 15 MG/ML VIAL IV PRN (22:12)
[2019-03-11] MEDS: PIPERACILLIN/TAZOBACTAM 3.375 GM in DEXTROSE 5% 100 ML IV SCH ×3 (00:05→15:53)
[2019-03-11] MEDS: HYDROCODONE/ACETAMOPHEN 5/325MG TAB PO PRN ×5 (00:11→22:11)
[2019-03-11] MEDS: LEVALBUTEROL HCL 0.63 MG/3 ML NEB NEB SCH ×4 (01:09→18:54)
[2019-03-11] MEDS: IPRATROPIUM BROMIDE NEB SOLN 0.02% 2.5 ML VIAL INH SCH ×4 (01:10→18:54)
[2019-03-11] MEDS: VANCOMYCIN HCL 1,250 MG in SODIUM CHLORIDE 0.9% 250 ML IV SCH ×3 (03:53→20:33)
[2019-03-11 06:47] LABS: Creatinine Clr Calc Pharmacy 120.4 ml/min; Est GFR (African American) 122.6; Est GFR (Non-African American) 105.8
[2019-03-11] MEDS: SODIUM CHLORIDE 0.9% 1000ML 1,000 ML IV SCH ×2 (07:50→19:58)
[2019-03-11] MEDS: ENOXAPARIN INJ 30 MG/0.3 ML SYR SQ SCH (07:51)
[2019-03-11] MEDS: LIDOCAINE 5% 1 PATCH TD SCH (07:52)
[2019-03-11] MEDS: PANTOprazole 40 MG TAB PO SCH (07:52)
[2019-03-11] MEDS: LORATADINE 10 MG TAB PO SCH (07:52)
[2019-03-11] MEDS: KETOROLAC TROMETHAMINE 15 MG/ML VIAL IV PRN (08:05)
--- NOTE | 2019-03-11 09:41 | Surgery Consultation ---
Date of Consultation March 11, 2019 Assessment & Plan (1) Gram positive sepsis: nothing to drain now. CT neg for drainable collection cont IV antibiotics per ID. cellulitis improving will follow along for now. (2) Pneumonia: (3) Cellulitis of face: History of Present Illness Attending Physician: Leobardo Terrell MD History of Present Illness pt admitted to the hospital for SOB. w/u reveals pneumonia. pt states he also has an "ingrown hair" on his chin from shaving. was very large/red/painful but improving now. Allergies Allergy/AdvReac Type Severity Reaction Status Date / Time cortisone Allergy Severe DROPPED Verified 03/09/19 01:04 B/P, PASSED OUT, BURNING SENSATION AT SITE. pollen extracts Allergy Intermediate SNEEZING, Verified 03/09/19 01:04 CONGESTION, COUGH. Iodinated Contrast Media AdvReac Intermediate GI Verified 03/09/19 01:04 SYMPTOMS--N/V Home Medications Home Medications Medication Instructions Recorded Confirmed Type dicyclomine 10 mg PO QID PRN 05/16/18 03/09/19 History loratadine 10 mg PO DAILY 05/16/18 03/09/19 History omeprazole 40 mg PO DAILY 05/16/18 03/09/19 History acetaminophen [Tylenol Extra 1,000 mg PO QID PRN 10/04/18 03/09/19 History Strength] naproxen sodium [Aleve] 440 mg PO BID PRN 10/04/18 03/09/19 History cyclobenzaprine 10 mg PO TID PRN #15 tab 02/10/19 03/09/19 Rx Patient History Medical History GERD (gastroesophageal reflux disease) (Chronic) Chronic lumbar pain (Chronic) Surgical History History of back surgery (Resolved) Family History Other No significant family history Social History Preferred Language: Estonian Communication Ability: Effective Beliefs That Will Affect Care: None marital status: Current Living Situation: Spouse current occupational status: unemployed and disabled Other Information That Helps Us Care for You: No Feels Safe at Home: Yes Safety Concerns: Feels Safe At This Time Smoking Status: Current every day smoker Tobacco Type: cigarettes ; Cigarettes Per Day: 30 ; Do You Dip or Chew Tobacco: No ; Tobacco Cessation Education Requested by Patient: No Hx Alcohol Use: No Hx Substance Use: No Review of Systems Review of Systems: All systems reviewed & are unremarkable except as noted in HPI & below Physical Exam Physical Exam: alert/oriented x 3. nad Resp: no labored breasthing. not using accessory muscles of respiration. Heent: area of scab on chin. no drainage. +firm lump with associated cellulitis and also an area of edema on his neck under his chin. this is much improved according to the pt. abd: soft. nt. ext: no c/c/e Results & Data Vital Signs (Past 12 Hours) Vital Signs Temp Pulse Resp BP BP Pulse Ox 03/11/19 08:02 38.6 C H 107 H 20 142/61 H 90 03/11/19 07:35 95 H 20 86 L 03/11/19 01:11 90 16 91 03/11/19 00:05 37.0 C 90 20 109/78 92 PG Care Time/CCT Total # of Minutes Spent Total Time Spent with Patient: Total time spent is greater than 50% in coordination of care (as documented) at patient's floor/unit and/or counseling patient: (1) Pneumonia Laterality: bilateral Lung location: unspecified part of lung Pneumonia type: due to unspecified organism Qualified Code(s): J18.9 - Pneumonia, un specified organism
[2019-03-11] MEDS ORDERED: VANCOMYCIN TROUGH ONE (11:30)
[2019-03-11] MEDS: NICOTINE 21 MG/24 HR TDSY TD PRN (13:41)
--- NOTE | 2019-03-11 14:26 | Pharmacy Report ---
Pharmacy Abx Dose Short Note - Date of Service March 11, 2019 - Assessment & Plan Assessment 53 year old M receiving empiric vancomycin and Zosyn for treatment of sepsis secondary to pneumonia vs. cellulitis of chin. Echocardiogram completed on 03/10: no evidence of vegetation noted Day # 3 of antimicrobial therapy. Renal function has been relatively stable (Scr of 0.72 mg/dL today) - will continue to follow Microbiology: Blood x 2 (03/09): Staphylococcus species Sputum (03/10): Staphylococcus aureus MRSA nasal swab: MRSA + Plan Vancomycin * Trough level of 15.8 mcg/mL is therapeutic * Continue dose of 1250 mg IV every 8 hours * Goal trough level for sepsis secondary to possible pneumonia/cellulitis: 15 to 20 mcg/mL * Follow-up trough level ordered for: 03/12/19 @1130 Zosyn * Continue current regimen of 3.375 g IV q8h (appropriate based on BMI and renal function) * Will need to reassess need for this medication given current culture data (S. aureus) Pharmacy will continue to follow and will adjust dose/frequency as necessary. Thank you.
[2019-03-11] MEDS: TRAMADOL HCL 50 MG TABLET PO PRN (15:53)
--- NOTE | 2019-03-11 18:16 | Hospitalist Progress Note ---
Date of Service March 11, 2019 Assessment & Plan (1) Sepsis: Possible sources: Community-acquired pneumonia Lactic acid level normal blood cultures 03/08: (+) gram positive cocci in clusters, (+) MRSA per PCR repeat blood cultures 03/09: gram positive cocci clusters sputum culture: Staph aureus Vancomycin added, Day 2 Zosyn continued, Day 3 echo no mention of vegetation ID consulted, appreciate the recommendations Chin cellulitis No abscess on CAT scan purulent drainage resolving Gen surg consulted- I&D not recommended Continue Vancomycin + Zosyn Back Pain Thoracic Spine MRI: no acute fracture, disc herniation muscular pain? Toradol PRN for pain improving COPD, ongoing tobacco abuse Not seem to be an exacerbation History of HTN BP on the lower side recently started by PCP on lisinopril, patient yet to comply Aortic root ectasia CT scan of the chest noted, no dissection noted Echo also noted Avoid Levaquin Non specific EKG changes denies chest pain echo: no wall motion abnormalities, Grade 2 diastolic dysfunction Chronic back pain Surgery contemplated next month Having pain over the thoracic spine MRI thoracic spine: no fractures, (+) OA PRN analgesics ordered Mood disorder stable chronic anemia, hemoglobin at baseline DVT prophylaxis. Lovenox subcu Full code Disposition lives with family at home will order PT/OT eval Subjective ff up for pneumonia, bacteremia seen resting in bed, comfortable states he feels somewhat improved compared to yesterday has mild headache, no neck pain/stiffness breathing continues to improve, no sputum, chest pain denies pain over the cellulitis area of the chin no other symptoms Review of Systems Review of Systems: All systems reviewed & are unremarkable except as noted in HPI & below Physical Exam Physical Exam: General- oriented x 3, not in distress, speaks in sentences with no effort or accessory muscle use Eyes- anicteric Neck- no JVD Lungs- mild intermittent rales b/l, no wheezing Heart- normal rate, regular rhythm; no murmurs Abdomen- normal bowel sounds, nondistended, soft, nontender Extremities- no pretibial edema, no calf tenderness back- no tenderness Neuro- alert, oriented x 3; no gross focal neurologic deficits Skin- warm & dry Results & Data Vital Signs (Past 12 Hours) Vital Signs Temp Pulse Resp BP Pulse Ox 03/11/19 15:51 37.2 C 03/11/19 15:12 38.1 C H 101 H 20 127/68 90 10/12/19 13:18 90 18 95 03/11/19 10:49 37.1 C 03/11/19 08:02 38.6 C H 107 H 20 142/61 H 90 03/11/19 07:35 95 H 20 86 L Laboratory Results Laboratory Results - last 24 hr 03/11/19 03/11/19 05:54 11:36 Creatinine 0.72 Est Cr Clr Drug Dosing 120.4 Est GFR ( Amer) 122.6 Est GFR (Non-Af Amer) 105.8 Vancomycin Trough 15.8
[2019-03-12] MEDS: PIPERACILLIN/TAZOBACTAM 3.375 GM in DEXTROSE 5% 100 ML IV SCH (00:03)
[2019-03-12] MEDS: HYDROCODONE/ACETAMOPHEN 5/325MG TAB PO PRN ×5 (02:37→22:01)
[2019-03-12] MEDS: VANCOMYCIN HCL 1,250 MG in SODIUM CHLORIDE 0.9% 250 ML IV SCH ×2 (04:10→11:44)
[2019-03-12] MEDS: SODIUM CHLORIDE 0.9% 1000ML 1,000 ML IV SCH ×2 (06:19→17:46)
[2019-03-12 06:49] LABS: Creatinine Clr Calc Pharmacy 133.4 ml/min; Est GFR (African American) 127.8; Est GFR (Non-African American) 110.3
[2019-03-12] MEDS: IPRATROPIUM BROMIDE NEB SOLN 0.02% 2.5 ML VIAL INH SCH ×3 (07:24→18:55)
[2019-03-12] MEDS: LEVALBUTEROL HCL 0.63 MG/3 ML NEB NEB SCH ×3 (07:24→18:55)
--- NOTE | 2019-03-12 07:41 | Infectious Disease Progress Nt ---
Date of Service March 12, 2019 Assessment & Plan (1) Pneumonia: continue vanco, repeat cultures. echo 03/10 negative. (2) Gram positive sepsis: Subjective blood cultures growing MRSArepeat cultures + as well. sputum culture growing MRSA final afebrile. Results & Data Vital Signs (Past 12 Hours) Vital Signs Temp Pulse Resp BP Pulse Ox 03/12/19 07:28 92 H 16 92 03/12/19 04:25 37.1 C 90 18 144/83 H 91 03/11/19 22:00 37.1 C 81 18 133/76 90 Laboratory Results Microbiology 03/09/19 03:09 Blood Aerobic Blood Culture - Preliminary Staph aureus MRSA 03/09/19 03:09 Blood Anaerobic Blood Culture - Preliminary Staph aureus MRSA 03/09/19 03:00 Blood Aerobic Blood Culture - Final Staph aureus MRSA 03/09/19 03:00 Blood Anaerobic Blood Culture - Final Staph aureus MRSA 03/10/19 13:35 Sputum, Expectorated Gram Stain - Final 03/10/19 13:35 Sputum, Expectorated Sputum Culture - Preliminary Staph aureus MRSA 03/10/19 10:31 Blood Aerobic Blood Culture - Preliminary Gram positive cocci clusters 03/10/19 10:31 Blood Anaerobic Blood Culture - Final 03/10/19 10:03 Blood Aerobic Blood Culture - Preliminary Gram positive cocci clusters 03/10/19 10:03 Blood Anaerobic Blood Culture - Preliminary No growth in Anaerobic bottle after 24 hours. PG Care Time/CCT Total # of Minutes Spent Total Time Spent with Patient: Total time spent is greater than 50% in coordination of care (as documented) at patient's floor/unit and/or counseling patient: (1) Pneumonia Laterality: bilateral Lung location: unspecified part of lung Pneumonia type: due to unspecified organism Qualified Code(s): J18.9 - Pneumonia, unspecified organism
[2019-03-12] MEDS: PANTOprazole 40 MG TAB PO SCH (08:01)
[2019-03-12] MEDS: LORATADINE 10 MG TAB PO SCH (08:01)
[2019-03-12] MEDS: ENOXAPARIN INJ 40 MG/0.4 ML SYR SQ SCH (08:03)
[2019-03-12] MEDS: LIDOCAINE 5% 1 PATCH TD SCH (08:03)
--- NOTE | 2019-03-12 09:12 | Surgery Progress Note ---
Date of Service March 12, 2019 Assessment & Plan (1) Cellulitis of face: improving on IV zosyn no drainable collections will be on abx at d/c that should cover remaining cellulitis seen with Dr. Rehman will sign off as above. nothing to drain currently/improving. please call us if needed. Subjective pain, swelling improved Physical Exam ENMT: cellulitis improved Results & Data Vital Signs (Past 12 Hours) Vital Signs Temp Pulse Resp BP Pulse Ox 03/12/19 07:28 92 H 16 92 03/12/19 04:25 37.1 C 90 18 144/83 H 91 03/11/19 22:00 37.1 C 81 18 133/76 90 PG Care Time/CCT Total # of Minutes Spent Total Time Spent with Patient: Total time spent is greater than 50% in coordination of care (as documented) at patient's floor/unit and/or counseling patient:
[2019-03-12] MEDS ORDERED: VANCOMYCIN TROUGH ONE (11:30)
[2019-03-12] MEDS: NICOTINE 21 MG/24 HR TDSY TD PRN (11:44)
--- NOTE | 2019-03-12 13:51 | Pharmacy Report ---
Pharmacy Abx Dose Short Note - Date of Service March 12, 2019 - Assessment & Plan Assessment 53 year old M receiving vancomycin for treatment of sepsis secondary to MRSA pneumonia. Patient also has cellulitis of the face, which should be adequately covered by current antibiotic regimen. Echocardiogram completed on 03/10: no evidence of vegetation noted Day # 4 of antimicrobial therapy. Microbiology: Blood x 2 (03/09): MRSA Blood x 2 (03/10): MRSA Blood x 2 (03/12): pending Sputum (03/10): MRSA MRSA nasal swab: MRSA + *Of note: vancomycin ZAC: 2 (treatment options are limited given inability to use daptomycin due to MRSA pneumonia) Will target higher end of 15-20 mcg/dL and follow new culture. May need to consider other treatment options if blood cultures remain positive. Plan Vancomycin * Trough level of 15.3 mcg/mL is therapeutic for sepsis secondary to MRSA pneumonia, but will increase goal trough level to target 18 to 20 mcg/mL due to ZAC of 2 for vancomycin. * Will increase dose to 1500 mg IV every 8 hours to begin 6 hours after 1200 dose of vancomycin 1250 mg * Follow-up trough level ordered for: 03/13/19 @1730 Zosyn has been discontinued Pharmacy will continue to follow and will adjust dose/frequency as necessary. Thank you.
[2019-03-12] MEDS: ACETAMINOPHEN 325 MG TAB PO PRN (15:35)
[2019-03-12] MEDS: VANCOMYCIN HCL 1,500 MG in SODIUM CHLORIDE 0.9% 500 ML IV SCH (17:42)
--- NOTE | 2019-03-12 19:44 | Hospitalist Progress Note ---
Date of Service March 12, 2019 Assessment & Plan (1) Sepsis: Possible sources: Community-acquired pneumonia Lactic acid level normal blood cultures 03/08: MRSA repeat blood cultures 03/09: MRSA sputum culture: MRSA Blood cultures 03/12/2019: Pending Echo: No mention of vegetation Vancomycin day number 3 Zosyn discontinued, received for 3 days ID consulted, appreciate the recommendations Chin cellulitis No abscess on CAT scan purulent drainage resolving Gen surg consulted- I&D not recommended Continue Vancomycin + Zosyn Back Pain Thoracic Spine MRI: no acute fracture, disc herniation muscular pain? Toradol PRN for pain improving COPD, ongoing tobacco abuse Does not seem to be an exacerbation History of HTN BP on the lower side recently started by PCP on lisinopril, patient yet to comply Aortic root ectasia CT scan of the chest noted, no dissection noted Echo also noted Avoid Levaquin Non specific EKG changes denies chest pain echo: no wall motion abnormalities, Grade 2 diastolic dysfunction Chronic back pain Surgery contemplated next month Having pain over the thoracic spine MRI thoracic spine: no fractures, (+) OA PRN analgesics ordered Mood disorder stable chronic anemia, hemoglobin at baseline DVT prophylaxis. Lovenox subcu Full code Disposition lives with family at home will order PT/OT eval Subjective Follow-up for pneumonia, bacteremia, cellulitis Seen with patient's at the bedside He is sitting in bed, appears somewhat weak, but comfortable not in distress States he feels about the same as yesterday Dizziness improving gradually, intermittent dry cough Chest pain and shoulder pain improving Has mild headache Denies other symptoms Review of Systems Review of Systems: All systems reviewed & are unremarkable except as noted in HPI & below Physical Exam Physical Exam: General- oriented x 3, not in distress, speaks in sentences with no effort or accessory muscle use Head-chin: Edema and erythema improving, no drainage Eyes- anicteric Neck- no JVD Lungs-clear breath sound bilaterally no crackles wheezing Heart- normal rate, regular rhythm; no murmurs Abdomen- normal bowel sounds, nondistended, soft, nontender Extremities- no pretibial edema, no calf tenderness Neuro- alert, oriented x 3; no gross focal neurologic deficits Skin- warm & dry Results & Data Vital Signs (Past 12 Hours) Vital Signs Temp Pulse Resp BP Pulse Ox 03/12/19 18:55 90 16 91 03/12/19 17:09 37.3 C 96 03/12/19 15:30 37.7 C H 98 H 134/82 86 L 03/12/19 12:48 91 H 16 90 Laboratory Results Laboratory Results - last 24 hr 03/12/19 03/12/19 06:05 11:36 Creatinine 0.65 Est Cr Clr Drug Dosing 133.4 Est GFR ( Amer) 127.8 Est GFR (Non-Af Amer) 110.3 Vancomycin Trough 15.3
[2019-03-13] MEDS: VANCOMYCIN HCL 1,500 MG in SODIUM CHLORIDE 0.9% 500 ML IV SCH ×2 (02:03→09:43)
[2019-03-13] MEDS: HYDROCODONE/ACETAMOPHEN 5/325MG TAB PO PRN ×5 (02:04→20:53)
[2019-03-13] MEDS: IPRATROPIUM BROMIDE NEB SOLN 0.02% 2.5 ML VIAL INH SCH (06:59)
[2019-03-13] MEDS: LEVALBUTEROL HCL 0.63 MG/3 ML NEB NEB SCH (06:59)
[2019-03-13] MEDS: NICOTINE 21 MG/24 HR TDSY TD SCH (08:01)
[2019-03-13] MEDS: PANTOprazole 40 MG TAB PO SCH (08:02)
[2019-03-13] MEDS: LIDOCAINE 5% 1 PATCH TD SCH (08:02)
[2019-03-13] MEDS: LORATADINE 10 MG TAB PO SCH (08:02)
[2019-03-13 08:06] LABS: Hematocrit (blood only) 27.5 % (42-52); Hemoglobin 9.5 g/dL (14.0-18.0); Mean Corpuscular Hemoglobin 31.8 pg (25-34); Mean Corpuscular Hgb Conc 34.5 g/dL (32-36); Mean Platelet Volume 9.7 fL (7.4-10.4); Platelet Count 247 K/uL (130-400); RDW Coefficient of Variation 13.5 % (11.5-14.5); RDW Standard Deviation 45.2 fL (36.4-46.3); Red Blood Count 2.99 M/uL (4.7-6.1); White Blood Count 9.38 K/uL (4.8-10.8)
[2019-03-13] MEDS: ENOXAPARIN INJ 40 MG/0.4 ML SYR SQ SCH (08:06)
[2019-03-13] MEDS: SODIUM CHLORIDE 0.9% 1000ML 1,000 ML IV SCH ×2 (08:08→20:46)
[2019-03-13 08:35] LABS: Basophils # (auto) 0.01 K/uL (0-0.2); Basophils % (auto) 0.1 %; Eosinophils % (auto) 2.1 %; Immature Granulocytes # (auto) 0.03 K/uL (0.00-0.02); Immature Granulocytes % (auto) 0.3 %; Lymphocytes # (auto) 1.26 K/uL (1.2-3.4); Lymphocytes % (auto) 13.4 %; Monocytes # (auto) 0.94 K/uL (0.11-0.59); Neutrophils # (auto) 6.94 K/uL (1.4-6.5); Neutrophils % (auto) 74.1 %
[2019-03-13 08:40] LABS: Calcium 8.2 mg/dl (8.5-10.1); Creatinine Clr Calc Pharmacy 144.5 ml/min; Est GFR (African American) 132.1; Potassium 3.2 mmol/L (3.5-5.1)
--- NOTE | 2019-03-13 10:47 | Infectious Disease Progress Nt ---
Date of Service March 13, 2019 Assessment & Plan (1) Pneumonia: vanco valeria elevated, can not use dapto due to MRSA pna. will follow repeat cultures. will change to Ceftaroline and continue to follow. will need min 3 weeks IV abx from first negative blood culture, not ready for d/c at this time. (2) Gram positive sepsis: Subjective pt seen in followup, family at bedside, feeling somewhat better ,still having pleuritic cp but improved. no f/c. tmax 37.8. Blood cultures from 03/09 and 03/10 growing MRSA, sputum culture growing MRSA as well. remains on vanco, tolerating well, trough 15. wbc improved to 9. 03/12 blood cultures pending. a nxious to go home. still coughing but less. no holley. no abd pain, no n/v/d. eating but has poor appetite. 03/10 echo negative. Review of Systems Review of Systems: All systems reviewed & are unremarkable except as noted in HPI & below Physical Exam Constitutional: WD/WN, vitals as above Eyes: PERRL, conjunctivae normal, anicteric sclerae ENMT: external ear and nose normal, oropharynx normal Neck: normal visual inspection Respiratory: normal respiratory effort, lungs clear to auscultation Cardiovascular: RRR, no murmur, no edema Gastrointestinal (Abdomen): normal bowel sounds, soft, nontender, no hepatosplenomegaly Musculoskeletal: no cyanosis or clubbing, extremities motor strength 5/5 Skin: no rashes, warm and dry Psychiatric: A+Ox3, euthymic affect Results & Data Vital Signs (Past 12 Hours) Vital Signs Temp Pulse Pulse Resp BP BP Pulse Ox 03/13/19 09:19 37.1 C 03/13/19 07:00 37.8 C H 94 H 95 H 20 142/85 H 90 03/12/19 23:02 37.6 C H 86 123/74 91 Laboratory Results Microbiology 03/12/19 08:00 Blood Anaerobic Blood Culture - Preliminary Gram positive cocci clusters 03/12/19 07:51 Blood Aerobic Blood Culture - Preliminary No growth in Aerobic bottle after 24 hours. 03/12/19 07:51 Blood Anaerobic Blood Culture - Preliminary No growth in Anaerobic bottle after 24 hours. 03/13/19 Unknown Sputum, Expectorated Gram Stain - Final 03/10/19 10:03 Blood Aerobic Blood Culture - Preliminary Staph aureus MRSA 03/10/19 10:03 Blood Anaerobic Blood Culture - Preliminary No growth in Anaerobic bottle after 48 hours. 03/10/19 10:31 Blood Aerobic Blood Culture - Final Staph aureus MRSA 03/10/19 10:31 Blood Anaerobic Blood Culture - Final 03/09/19 03:09 Blood Aerobic Blood Culture - Final Staph aureus MRSA 03/09/19 03:09 Blood Anaerobic Blood Culture - Final Staph aureus MRSA 03/10/19 13:35 Sputum, Expectorated Gram Stain - Final 03/10/19 13:35 Sputum, Expectorated Sputum Culture - Final Staph aureus MRSA 03/09/19 03:00 Blood Aerobic Blood Culture - Final Staph aureus MRSA 03/09/19 03:00 Blood Anaerobic Blood Culture - Final Staph aureus MRSA PG Care Time/CCT Total # of Minutes Spent Total Time Spent with Patient: Total time spent is greater than 50% in coordination of care (as documented) at patient's floor/unit and/or counseling patient: (1) Pneumonia Laterality: bilateral Lung location: unspecified part of lung Pneumonia type: due to unspecified organism Qualified Code(s): J18.9 - Pneumonia, unspecified organism
[2019-03-13] MEDS: CEFTAROLINE FOSAMIL ACETATE 600 MG in SODIUM CHLORIDE 0.9% 250 ML IV SCH ×2 (12:07→22:16)
[2019-03-13] MEDS ORDERED: POTASSIUM CHLORIDE 20 MEQ TABCR PO STA (17:19)
--- NOTE | 2019-03-13 17:20 | Hospitalist Progress Note ---
Date of Service March 13, 2019 Assessment & Plan (1) Sepsis: Possible sources: Community-acquired pneumonia Lactic acid level normal blood cultures 03/08: MRSA repeat blood cultures 03/09: MRSA sputum culture: MRSA Blood cultures 03/12/2019: gram positive Echo: No mention of vegetation Vancomycin day number 3--> changed to Ceftaroline Zosyn discontinued, received for 3 days ID consulted, appreciate the recommendations Chin cellulitis No abscess on CAT scan purulent drainage resolving Gen surg consulted- I&D not recommended Continue Ceftaroline Back Pain Thoracic Spine MRI: no acute fracture, disc herniation muscular pain? Toradol PRN for pain -- still having Right shoulder blade pain will consult pain management COPD, ongoing tobacco abuse Does not seem to be an exacerbation History of HTN BP on the lower side recently started by PCP on lisinopril, patient yet to comply Aortic root ectasia CT scan of the chest noted, no dissection noted Echo also noted Avoid Levaquin Non specific EKG changes denies chest pain echo: no wall motion abnormalities, Grade 2 diastolic dysfunction Chronic back pain Surgery contemplated next month Having pain over the thoracic spine MRI thoracic spine: no fractures, (+) OA PRN analgesics ordered Mood disorder stable chronic anemia, hemoglobin at baseline DVT prophylaxis. Lovenox subcu Full code Disposition lives with family at home will order PT/OT eval Subjective ff up for bacteremia, pneumonia seen resting in bed, comfortable family at bedside states he feels improved compared to yesterday breathing is better, less cough, no sputum still reports shoulder blade pain- right no other symptoms Review of Systems Review of Systems: All systems reviewed & are unremarkable except as noted in HPI & below Physical Exam Physical Exam: General- oriented x 3, not in distress, speaks in sentences with no effort or accessory muscle use Eyes- anicteric Neck- no JVD Lungs- clear breath sounds bilaterally no wheezing (+) mild tenderness to the right shoulder pain Heart- normal rate, regular rhythm; no murmurs Abdomen- normal bowel sounds, nondistended, soft, nontender Extremities- no pretibial edema, no calf tenderness Neuro- alert, oriented x 3; no gross focal neurologic deficits Skin- warm & dry Results & Data Vital Signs (Past 12 Hours) Vital Signs Temp Pulse Pulse Resp BP Pulse Ox 03/13/19 15:22 37.0 C 88 20 118/80 89 L 10/14/19 12:55 93 03/13/19 09:19 37.1 C 03/13/19 07:00 37.8 C H 94 H 95 H 20 142/85 H 90 Laboratory Results Laboratory Results - last 24 hr 03/13/19 03/13/19 07:57 07:57 WBC 9.38 RBC 2.99 L Hgb 9.5 L Hct 27.5 L MCV 92.0 MCH 31.8 MCHC 34.5 RDW Std Deviation 45.2 RDW Coeff of Angela 13.5 Plt Count 247 MPV 9.7 Immature Gran % (Auto) 0.3 Neut % (Auto) 74.1 Lymph % (Auto) 13.4 Morrow % (Auto) 10.0 Eos % (Auto) 2.1 Baso % (Auto) 0.1 Immature Gran # (Auto) 0.03 H Neut # (Auto) 6.94 H Lymph # (Auto) 1.26 Morrow # (Auto) 0.94 H Eos # (Auto) 0.20 Baso # (Auto) 0.01 Sodium 138 Potassium 3.2 L Chloride 107 Carbon Dioxide 21 Anion Gap 11.0 BUN 5 L Creatinine 0.60 Est Cr Clr Drug Dosing 144.5 Est GFR ( Amer) 132.1 Est GFR (Non-Af Amer) 114.0 BUN/Creatinine Ratio 8.0 L Glucose 81 Calcium 8.2 L
[2019-03-13] MEDS ORDERED: VANCOMYCIN TROUGH ONE (17:30)
[2019-03-13] MEDS: LACTOBACILLUS ACIDOPHILUS (FLORANEX) TAB PO SCH (21:51)
[2019-03-14] MEDS ORDERED: VANCOMYCIN TROUGH ONE (01:30)
[2019-03-14] MEDS: HYDROCODONE/ACETAMOPHEN 5/325MG TAB PO PRN ×4 (03:32→20:28)
[2019-03-14] MEDS: ACETAMINOPHEN 325 MG TAB PO PRN (06:19)
[2019-03-14] MEDS: LACTOBACILLUS ACIDOPHILUS (FLORANEX) TAB PO SCH ×4 (09:08→20:29)
[2019-03-14] MEDS: NICOTINE 21 MG/24 HR TDSY TD SCH (09:09)
[2019-03-14] MEDS: ENOXAPARIN INJ 40 MG/0.4 ML SYR SQ SCH (09:09)
[2019-03-14] MEDS: LORATADINE 10 MG TAB PO SCH (09:09)
[2019-03-14] MEDS: PANTOprazole 40 MG TAB PO SCH (09:09)
[2019-03-14] MEDS: LIDOCAINE 5% 1 PATCH TD SCH (09:10)
[2019-03-14] MEDS: SODIUM CHLORIDE 0.9% 1000ML 1,000 ML IV SCH (09:12)
--- NOTE | 2019-03-14 09:22 | Hospitalist Progress Note ---
Date of Service delayed entry date of service as noted below March 14, 2019 Assessment & Plan (1) Sepsis: Possible sources: Community-acquired pneumonia Lactic acid level normal blood cultures 03/08: MRSA repeat blood cultures 03/09: MRSA sputum culture: MRSA Blood cultures 03/12/2019: gram positive Echo: No mention of vegetation Vancomycin day number 3--> changed to Ceftaroline Blood culture 03/13: Staph -- in light of persistent (+) blood cultures, CT chest ordered to r/o Abscess and Thoracic MRI ordered to r/o discitis in light of persistent back pain Chin cellulitis No abscess on CAT scan purulent drainage resolving Gen surg consulted- I&D not recommended Continue Ceftaroline Back Pain Thoracic Spine MRI: no acute fracture, disc herniation muscular pain? Toradol PRN for pain -- still having Right shoulder blade pain consulted pain management --> recommend baclofen for myofascial pain syndrome -- Thoracic MRI with contrast ordered COPD, ongoing tobacco abuse not in exacerbation History of HTN BP on the lower side recently started by PCP on lisinopril, patient yet to comply Aortic root ectasia CT scan of the chest noted, no dissection noted Echo also reviewed Avoid Levaquin Non specific EKG changes denies chest pain echo: no wall motion abnormalities, Grade 2 diastolic dysfunction Chronic back pain Surgery contemplated next month Having pain over the thoracic spine MRI thoracic spine: no fractures, (+) OA PRN analgesics ordered -management noted above Mood disorder stable Chronic Anemia, hemoglobin at baseline DVT prophylaxis. Lovenox subcu Full code Disposition lives with family at home will order PT/OT eval Subjective ff up for pneumonia, bacteremia seen resting in bed, not in distress states he still has cough, productive of yellow sputum still has pain on the right scapula no other symptoms Review of Systems Review of Systems: All systems reviewed & are unremarkable except as noted in HPI & below Physical Exam Physical Exam: General- oriented x 3, not in distress, speaks in sentences with no effort or accessory muscle use Eyes- anicteric Neck- no JVD Lungs- mild rales at the right base no wheezing Heart- normal rate, regular rhythm; no murmurs Abdomen- normal bowel sounds, nondistended, soft, nontender Extremities- no pretibial edema, no calf tenderness Neuro- alert, oriented x 3; no gross focal neurologic deficits Skin- warm & dry Results & Data Vital Signs (Past 12 Hours) Vital Signs Temp Pulse Resp BP BP Pulse Ox 03/14/19 07:13 37.1 C 94 H 18 121/75 91 03/14/19 06:15 38.1 C H 03/14/19 03:27 38.7 C H 03/13/19 23:00 38.1 C H 88 18 148/85 H 89 L Laboratory Results Laboratory Results - last 24 hr 03/14/19 03/14/19 03/15/19 09:06 09:06 05:51 WBC 8.41 RBC 2.95 L Hgb 9.4 L Hct 27.7 L MCV 93.9 MCH 31.9 MCHC 33.9 RDW Std Deviation 47.0 H RDW Coeff of Angela 13.6 Plt Count 332 MPV 10.3 Immature Gran % (Auto) 0.8 Neut % (Auto) 67.0 Lymph % (Auto) 13.7 Mckinley % (Auto) 14.1 Eos % (Auto) 4.0 Baso % (Auto) 0.4 Immature Gran # (Auto) 0.07 H Neut # (Auto) 5.63 Lymph # (Auto) 1.15 L Mckinley # (Auto) 1.19 H Eos # (Auto) 0.34 Baso # (Auto) 0.03 Sodium 141 Potassium 3.4 L Chloride 110 H Carbon Dioxide 23 Anion Gap 7.0 BUN 6 L Creatinine 0.58 L 0.63 Est Cr Clr Drug Dosing 149.5 137.6 Est GFR ( Amer) 134.0 129.5 Est GFR (Non-Af Amer) 115.6 111.7 BUN/Creatinine Ratio 10.3 Glucose 92 Calcium 8.4 L
[2019-03-14 09:58] LABS: Basophils # (auto) 0.03 K/uL (0-0.2); Basophils % (auto) 0.4 %; Eosinophils # (auto) 0.34 K/uL (0-0.5); Hematocrit (blood only) 27.7 % (42-52); Hemoglobin 9.4 g/dL (14.0-18.0); Immature Granulocytes # (auto) 0.07 K/uL (0.00-0.02); Immature Granulocytes % (auto) 0.8 %; Lymphocytes # (auto) 1.15 K/uL (1.2-3.4); Lymphocytes % (auto) 13.7 %; Mean Corpuscular Hemoglobin 31.9 pg (25-34); Mean Corpuscular Hgb Conc 33.9 g/dL (32-36); Mean Corpuscular Volume 93.9 fL (80-100); Mean Platelet Volume 10.3 fL (7.4-10.4); Monocytes # (auto) 1.19 K/uL (0.11-0.59); Monocytes % (auto) 14.1 %; Neutrophils # (auto) 5.63 K/uL (1.4-6.5); Platelet Count 332 K/uL (130-400); RDW Coefficient of Variation 13.6 % (11.5-14.5); Red Blood Count 2.95 M/uL (4.7-6.1); White Blood Count 8.41 K/uL (4.8-10.8)
[2019-03-14 10:05] LABS: BUN Creatinine Ratio 10.3 (10-20); Calcium 8.4 mg/dl (8.5-10.1); Creatinine Clr Calc Pharmacy 149.5 ml/min; Est GFR (Non-African American) 115.6; Potassium 3.4 mmol/L (3.5-5.1)
[2019-03-14] MEDS: CEFTAROLINE FOSAMIL ACETATE 600 MG in SODIUM CHLORIDE 0.9% 250 ML IV SCH ×2 (10:45→22:44)
--- NOTE | 2019-03-14 11:29 | Pain Management Consultation ---
Date of Consultation March 14, 2019 Assessment & Plan (1) Pneumonia: 1. I suspect this patient's pain is likely myofascial in origin. Chest CT images were reviewed with radiology and no indication of rib fractures are noted. Recommend discontinuation of cyclobenzaprine and initiate baclofen 10 mg p.o. 3 times daily. Orders are written 2. Recommend continuation of ketorolac, acetaminophen, Lidoderm patch, tramadol for mild to moderate pain, hydrocodone for severe pain. 3. There is no role for interventional pain management in this patient at this time. Should pain persist could consider outpatient pain management consultation at that time. 4. Please call with any questions thank you. Laterality: bilateral Lung location: unspecified part of lung Pneumonia type: due to unspecified organism Qualified Code(s): J18.9 - Pneu monia, unspecified organism (2) Chest pain: Chest pain type: unspecified Qualified Code(s): R07.9 - Chest pain, unspecified (3) COPD (chronic obstructive pulmonary disease): COPD type: unspecified COPD Qualified Code(s): J44.9 - Chronic obstructive pulmonary disease, unspecified (4) Sepsis: History of Present Illness Attending Physician: Leobardo Terrell MD History of Present Illness 53-year-old male admitted with multilobular pneumonia with left scapular pain necessitating pain management consultation. He states that his pain is predominantly along the medial border of his left scapula but upon further discussion it is noted he has significant reproducible with palpation anterior chest wall pain from approximately T3-T7. He admits to significant coughing which worsens his pain. Pain is currently 4 out of 10 but can escalate to 10 out of 10 with significant coughing sessions. He reports mild benefit with Flexeril, lidocaine patch, tramadol, hydrocodone dosing. He notes mild benefit from ketorolac. He denies any trauma as the etiology of his pain. Pain is characterized as a consistent aching with worsened periods of sharp discomfort such as when coughing. He denies radicular thoracic pain. The patient admits to chronic unchanged axial low back pain at the lumbosacral junction but notes that this is his tolerable chronic pain. He denies any bowel or bladder incontinence, motor weakness, footdrop. He does admit to generalized fatigue and myalgias. Pain Assessment Full Body Front + Back: 1. 2. Allergies Allergy/AdvReac Type Severity Reaction Status Date / Time cortisone Allergy Severe DROPPED Verified 03/09/19 01:04 B/P, PASSED OUT, BURNING SENSATION AT SITE. pollen extracts Allergy Intermediate SNEEZING, Verified 03/09/19 01:04 CONGESTION, COUGH. Iodinated Contrast Media AdvReac Intermediate GI Verified 03/09/19 01:04 SYMPTOMS--N/V Home Medications Home Medications Medication Instructions Recorded Confirmed Type dicyclomine 10 mg PO QID PRN 05/16/18 03/09/19 History loratadine 10 mg PO DAILY 05/16/18 03/09/19 History omeprazole 40 mg PO DAILY 05/16/18 03/09/19 History acetaminophen [Tylenol Extra 1,000 mg PO QID PRN 10/04/18 03/09/19 History Strength] naproxen sodium [Aleve] 440 mg PO BID PRN 10/04/18 03/09/19 History cyclobenzaprine 10 mg PO TID PRN #15 tab 02/10/19 03/09/19 Rx Patient History Medical History Gram positive sepsis Sepsis Chest pain (Acute) Pneumonia (Acute) Dyspnea (Acute) Cellulitis of face (Acute) COPD (chronic obstructive pulmonary disease) (Acute) GERD (gastroesophageal reflux disease) (Chronic) Chronic lumbar pain (Chronic) Surgical History History of back surgery (Resolved) Family History Other No significant family history Social History Preferred Language: Indonesian Communication Ability: Effective Beliefs That Will Affect Care: None marital status: Current Living Situation: Spouse current occupational status: unemployed and disabled Other Information That Helps Us Care for You: No Feels Safe at Home: Yes Safety Concerns: Feels Safe At This Time Smoking Status: Current every day smoker Tobacco Type: cigarettes ; Cigarettes Per Day: 30 ; Do You Dip or Chew Tobacco: No ; Tobacco Cessation Education Requested by Patient: No Hx Alcohol Use: No Hx Substance Use: No Physical Exam Physical Exam: Constitutional: Well-developed, well-nourished, normal weight Psych: Awake, alert, and oriented 3 with normal affect and mood. Recent memory appears grossly intact Eyes: Pupils are equally round and reactive to light with normal size pupils, eyelids appear normal Ear, nose, mouth, and throat: Moist nasal and oral membranes, lips and tongues appear normal, no external ear abnormalities are noted Neck: The trachea is midline without deviation and no thyromegaly is noted Respiratory: Normal respiratory effort without distress CV: Normal S1 and S2 Chest: Deferred GI/abdomen: Non-tender without guarding, no masses noted Musculoskeletal: Head is normocephalic and atraumatic, gait was not observed the patient is able to easily move within bed Cervical: Lordotic curve: Normal Range of motion is normal with extension, flexion, side-bending, rotation Strength: Strength is grossly equal bilaterally with 5 out of 5 strength in all planes Thoracic: Kyphotic curve: Normal Range of motion is normal with extension, flexion, side-bending, rotation Tenderness: Mild to moderately tender over the axial midline from T5-T8 left greater than right Facet provocation: Negative bilaterally Scoliosis present: None Step-off injuries: None Myofascial spasm: Mild appreciable spasm over left rhomboids. No discrete trigger points noted The patient is exquisitely tender to AP chest compression with reproducible pain over the anterior left-sided chest wall. Moderate spasm noted over pectoralis major left side Lumbar: Lordotic curve: Mild loss of lumbar lordosis Range of motion is slightly decreased with extension, flexion, side-bending, rotation Strength: Strength is grossly equal bilaterally with 5 out of 5 strength in all planes Pathologic reflexes noted: None Skin: No rashes, lesions, ulcers, or induration noted Neuro: No nystagmus noted, the tongue is midline, the patient is able to rotate their head bilaterally : Deferred Results Diagnostic Review MRI: non enhanced, reports reviewed and findings discussed with patient MRI Findings: 03/09/19 MR thoracic spine wo con CLINICAL HISTORY: persistent, severe back pain PRIOR STUDIES: CT scan performed February 2014, CT scan of chest performed February 2019 TECHNIQUE: MR scanning of the thoracic spine was performed using multiple pulse sequences. No gadolinium was administered. FINDINGS: There are no suspicious areas of marrow replacement. There is a focal fatty rest/hemangioma at the T12 level. No thoracic cord lesions are visualized. There are mild multilevel degenerative changes. No focal disc herniations are visualized. There is no evidence for spinal stenosis. There are small bilateral pleural effusions. There are lower lobe dependent airspace opacities. IMPRESSION: 1. Mild degenerative change 2. No evidence of metastatic disease 3. No acute fractures 4. No evidence spinal stenosis 5. Small bilateral pleural effusions and dependent pulmonary airspace opacities CT: enhanced, reports reviewed, images reviewed (I personally reviewed the images with the radiologist and no rib fractures were noted) and findings discussed with patient CT Findings: 03/09/19 CT angio chest PE protocol CLINICAL HISTORY: 53 years-old Male presenting with bilateral chest pain, atypical chest pain. TECHNIQUE: Multidetector CT angiography of the chest was performed after administration of intravenous contrast. 3-D volumetric and/or maximum intensity projection (MIP) images were subsequently reconstructed for review. IV contrast: 91 mL of Optiray 320. One or more dose lowering techniques were used consistent with the principles of ALARA (as low as reasonably achievable), including automatic exposure control, mA or kV adjustment to individual patient size, and/or use of iterative reconstruction. COMPARISON: Chest x-ray from earlier today. CT DOSE (mGy.cm): The estimated cumulative dose is 565.91 mGy.cm. FINDINGS: Furnace Checker topogram: Unremarkable. Pulmonary vasculature: The study is suboptimal for the assessment of the pulmonary vascular tree secondary to timing of the contrast bolus. No filling defect within the pulmonary arteries to suggest embolus. Main pulmonary artery is not enlarged. No flattening of the interventricular septum. No intracardiac filling defect. No reflux of contrast into the hepatic veins. Remaining chest: Soft tissues: Normal thyroid and thoracic inlet. Prominent bilateral hilar lymph nodes. Scattered subcentimeter mediastinal lymph nodes nonspecific. Trace atherosclerosis of the descending thoracic aorta. Minimal ectasia of the ascending aorta, which measures 4.1 cm in diameter. Normal heart size. Coronary artery calcification. No pericardial or pleural effusion. Upper abdomen normal. Lungs and airways: No pneumothorax. Central airways patent. Pulmonary arteries are not significantly enlarged relative to adjacent bronchi. No interlobular septal thickening. Centrilobular emphysema diffusely to a moderate to severe degree. Multifocal patchy consolidation involving the central right upper lobe, superior segment of the right lower lobe, superior segment of the left lower lobe, and inferior segment of the lingula. Solid subpleural 3 mm nodule in the medial basal left lower lobe (series 4 image 163) solid peripheral 4 mm nodule in the lateral basal left lower lobe (series 4 image 165). Musculoskeletal: Degenerative changes of the spine. IMPRESSION: 1. No evidence of pulmonary embolus. 2. Multifocal consolidation most concerning for infectious pneumonia. These do not appear to represent pulmonary infarcts. Noninfectious inflammatory etiology is also possible. 3. Reactive bilateral hilar lymphadenopathy. 4. Multiple solid pulmonary nodules measuring up to 4 mm. Follow-up per Fleischner Society 2017 recommendations below. 5. Minimal ectasia of the ascending aorta, which measures 4.1 cm in diameter. Radiology: reports reviewed and findings discussed with patient Radiology Findings: XR chest 1V portable CLINICAL HISTORY: 53 years-old Male presenting with cough, chest pain. TECHNIQUE: Portable upright AP view of the chest was obtained. COMPARISON: 06/25/2016. FINDINGS: Cardiomediastinal silhouette normal. Mild vague reticular opacities with a basilar predominance. No other focal opacity. No large effusion or pneumothorax.. No large effusion or pneumothorax. Degenerative changes of the thoracic spine. Upper abdomen normal. IMPRESSION: 1. Vague reticular bibasilar infiltrates. This may suggest underlying chronic lung disease. Superimposed infiltrate is difficult to exclude.
[2019-03-14] MEDS: BACLOFEN 10 MG TAB PO SCH ×2 (13:11→20:30)
--- NOTE | 2019-03-14 14:22 | Infectious Disease Progress Nt ---
Date of Service March 14, 2019 Assessment & Plan (1) Pneumonia: continue abx, repepat blood cultures obtained this am, pending. Consider DIANE. MRI t spine previously negative, may need to be repeated as he has persistently + blood cultures and continued pain. Also would suggest ct chest to r/o abscess formation, persistent fevers. follow repeat blood culture results. (2) Gram positive sepsis: Subjective pt 03/12 cultures + S. aureus, changed to ceftaroline yesterday, cultures repeated this am, pending. still with intermittent fevers, tmax 38.7 wbc 8. s/p pain management eval. tolerating abx. Results & Data Vital Signs (Past 12 Hours) Vital Signs Temp Pulse Resp BP Pulse Ox 03/14/19 07:13 37.1 C 94 H 18 121/75 91 03/14/19 06:15 38.1 C H 03/14/19 03:27 38.7 C H Laboratory Results Microbiology 03/13/19 Unknown Sputum, Expectorated Gram Stain - Final 03/13/19 Unknown Sputum, Expectorated Sputum Culture - Preliminary Staphylococcus aureus 03/12/19 07:51 Blood Aerobic Blood Culture - Preliminary No growth in Aerobic bottle after 48 hours. 03/12/19 07:51 Blood Anaerobic Blood Culture - Preliminary No growth in Anaerobic bottle after 48 hours. 03/12/19 08:00 Blood Aerobic Blood Culture - Preliminary Staphylococcus aureus 03/12/19 08:00 Blood Anaerobic Blood Culture - Preliminary No growth in Anaerobic bottle after 48 hours. 03/10/19 10:03 Blood Aerobic Blood Culture - Preliminary Staph aureus MRSA 03/10/19 10:03 Blood Anaerobic Blood Culture - Preliminary No growth in Anaerobic bottle after 48 hours. 03/10/19 10:31 Blood Aerobic Blood Culture - Final Staph aureus MRSA 03/10/19 10:31 Blood Anaerobic Blood Culture - Final 03/09/19 03:09 Blood Aerobic Blood Culture - Final Staph aureus MRSA 03/09/19 03:09 Blood Anaerobic Blood Culture - Final Staph aureus MRSA 03/10/19 13:35 Sputum, Expectorated Gram Stain - Final 03/10/19 13:35 Sputum, Expectorated Sputum Culture - Final Staph aureus MRSA 03/09/19 03:00 Blood Aerobic Blood Culture - Final Staph aureus MRSA 03/09/19 03:00 Blood Anaerobic Blood Culture - Final Staph aureus MRSA PG Care Time/CCT Total # of Minutes Spent Total Time Spent with Patient: Total time spent is greater than 50% in coordination of care (as documented) at patient's floor/unit and/or counseling patient: (1) Pneumonia Laterality: bilateral Lung location: unspecified part of lung Pneumonia type: due to unspecified organism Qualified Code(s): J18.9 - Pneumonia, unspecified organism
--- NOTE | 2019-03-14 15:47 | CT Scan Report ---
CT chest wo con CLINICAL HISTORY: Pneumonia. Persistent fever. Possible pulmonary abscess. COMPARISON STUDY: CT angiography the chest dated 03/09/2019 CT DOSE: 272.86 mGy.cm TECHNIQUE: CT of the thorax was performed from the thoracic inlet to the lung bases. Images are revi ewed in the axial, sagittal, and coronal planes. IV contrast was not administered for this examinatio n. A dose lowering technique was utilized adhering to the principles of ALARA. FINDINGS: Thyroid: Imaged portions of the thyroid gland are normal in appearance. Thoracic aorta: There is mild ectasia of the ascending thoracic aorta which measures 39 mm. Heart: The heart is normal in size. There is trace pericardial fluid. There are mild coronary calcifi cations. Lungs and pleural spaces: Since the prior study, the patient has developed bilateral pleural effusion s. There is severe pulmonary emphysema. The focus of right upper lobe pulmonary consolidation has bec ome cavitary with a 15 mm cavitary space. There is progressive lingular consolidation which has becom e cavitary with multiple cavitary spaces the largest of which measures 23 mm. There is persistent pul monary consolidation involving the superior segment of the right lower lobe. Mediastinum: There are mildly enlarged mediastinal lymph nodes, likely reactive. Delaney: There is mild hilar adenopathy, likely reactive. Axilla: There is no evidence of pathologic axillary lymphadenopathy Upper abdomen: Partially visualized upper abdominal viscera is within normal limits. Skeletal structures: There are no lytic or blastic osseous lesions. IMPRESSION: 1. Interval development of bilateral pleural effusions 2. Mild mediastinal and hilar adenopathy likely reactive 3. Multifocal airspace consolidation, likely representing a multifocal pneumonia. There is progressiv e lingular consolidation. The lingular and right upper lobe airspace opacities have become cavitary. 4. Severe emphysema Electronically signed by: Rosalio Bergeron M.D. 03/14/2019 3:46 PM
[2019-03-14] MEDS ORDERED: GADOBUTROL 65ML VIAL IV PRN (22:19)
--- NOTE | 2019-03-14 23:07 | Magnetic Resonance Report ---
MR thoracic spine wo/w con HISTORY: 53 years-old Male r/o discitis acute severe back pain history of recent pneumonia COMPARISON: CT chest of same day, MRI thoracic spine 03/09/2019 TECHNIQUE: Multiplanar multisequence MRI of the thoracic spine was obtained both with and without the use of 7.0 mL Gadavist FINDINGS: Motion degraded exam. 2.3 cm T12 vertebral body hemangioma. Additional smaller T3 hemangioma noted. M ild multilevel disc space narrowing with spondylitic spurring and mild to moderate facet arthrosis. N o significant central canal narrowing identified. Moderate facet arthrosis at T12-L1. At T9-T10 there is moderate right lateral recess narrowing and mild right foraminal stenosis secondary to spondyliti c spurring and facet arthrosis. Bilateral pleural effusions with bibasilar consolidation redemonstrat ed. Nonspecific mild deep tissue edema of the paraspinal tissues extending from T2-T5. Signal within the imaged thoracic spinal cord appears normal. No evidence of acute discitis/osteomyelitis or epidur al fluid collection. No abnormal enhancement of the spine. IMPRESSION: 1. No evidence of acute discitis/osteomyelitis. 2. No acute fracture, subluxation, marrow edema or abnormal enhancement. 3. Bilateral pleural effusions with bibasilar consolidation redemonstrated. 4. Moderate lateral recess with mild right foraminal narrowing at T9-T10 secondary to degenerative ch nya. No high-grade central canal stenosis. The above report was generated using voice recognition software. It may contain grammatical, syntax o r spelling errors. Electronically signed by: Ori Cabrera M.D. 03/14/2019 11:05 PM
[2019-03-15] MEDS: HYDROCODONE/ACETAMOPHEN 5/325MG TAB PO PRN ×5 (00:39→21:53)
[2019-03-15 06:48] LABS: Creatinine Clr Calc Pharmacy 137.6 ml/min; Est GFR (African American) 129.5; Est GFR (Non-African American) 111.7
[2019-03-15] MEDS: BACLOFEN 10 MG TAB PO SCH ×3 (07:42→20:04)
[2019-03-15] MEDS: LACTOBACILLUS ACIDOPHILUS (FLORANEX) TAB PO SCH ×4 (07:44→20:05)
[2019-03-15] MEDS: LORATADINE 10 MG TAB PO SCH (07:45)
[2019-03-15] MEDS: PANTOprazole 40 MG TAB PO SCH (07:45)
[2019-03-15] MEDS: LIDOCAINE 5% 1 PATCH TD SCH (07:47)
[2019-03-15] MEDS: NICOTINE 21 MG/24 HR TDSY TD SCH (07:48)
[2019-03-15] MEDS: ENOXAPARIN INJ 40 MG/0.4 ML SYR SQ SCH (09:05)
[2019-03-15] MEDS: ACETAMINOPHEN 325 MG TAB PO PRN (09:56)
[2019-03-15] MEDS: CEFTAROLINE FOSAMIL ACETATE 600 MG in SODIUM CHLORIDE 0.9% 250 ML IV SCH ×2 (12:35→22:33)
--- NOTE | 2019-03-15 14:15 | Infectious Disease Progress Nt ---
Date of Service March 15, 2019 Assessment & Plan (1) Pneumonia: continue abx, repepat blood cultures negative at 24h, continue to follow. if + Consider DIANE. MRI t spine negative for infection, suspect referred pain from lingular infiltrate, now with cavitation as well. follow repeat blood culture results. If 10/15 cultures negative, can have picc. will need 6 weeks IV ceftaroline, weekly cbc, cmp, esr while on therapy. (2) Gram positive sepsis: Subjective pt seen in followup, family at bedside. s/p ct chest, still with b/l consolidation now with cavitation as well. still with left sided pain, improved. s/p pain management eval. MRI t spine negative for osteo/discitis. afebrile today, tmax 38.7. remains on ceftaroline, tolerating well. wbc 8. 10/15 blood ucltures negative at 24 hours. multiple previous blood cultures as well as sputum cultures + MRSA. breathing is improved, walking in hallway now. no cp, no productive sputum, states every day he feels slighlty better. no abd pain, no n/v/d. no gu symptoms. Review of Systems Review of Systems: All systems reviewed & are unremarkable except as noted in HPI & below Physical Exam Constitutional: WD/WN, vitals as above Eyes: PERRL, conjunctivae normal, anicteric sclerae ENMT: external ear and nose normal, oropharynx normal Neck: normal visual inspection Respiratory: normal respiratory effort, lungs clear to auscultation Cardiovascular: RRR, no murmur, no edema Gastrointestinal (Abdomen): normal bowel sounds, soft, nontender, no hepatosp lenomegaly Musculoskeletal: no cyanosis or clubbing, extremities motor strength 5/5 Skin: no rashes, warm and dry Psychiatric: A+Ox3, euthymic affect Results & Data Vital Signs (Past 12 Hours) Vital Signs Temp Pulse Resp BP Pulse Ox 03/15/19 07:14 37.4 C 86 18 121/72 90 Laboratory Results Microbiology 03/10/19 10:03 Blood Aerobic Blood Culture - Final Staph aureus MRSA 03/10/19 10:03 Blood Anaerobic Blood Culture - Final No growth in Anaerobic bottle after 5 days. 03/14/19 08:58 Blood Aerobic Blood Culture - Preliminary No growth in Aerobic bottle after 24 hours. 03/14/19 08:58 Blood Anaerobic Blood Culture - Preliminary No growth in Anaerobic bottle after 24 hours. 03/14/19 09:06 Blood Aerobic Blood Culture - Preliminary No growth in Aerobic bottle after 24 hours. 03/14/19 09:06 Blood Anaerobic Blood Culture - Preliminary No growth in Anaerobic bottle after 24 hours. 03/12/19 08:00 Blood Aerobic Blood Culture - Preliminary Staph aureus MRSA 03/12/19 08:00 Blood Anaerobic Blood Culture - Preliminary No growth in Anaerobic bottle after 48 hours. 03/13/19 Unknown Sputum, Expectorated Gram Stain - Final 03/13/19 Unknown Sputum, Expectorated Sputum Culture - Preliminary Staphylococcus aureus 03/12/19 07:51 Blood Aerobic Blood Culture - Preliminary No growth in Aerobic bottle after 48 hours. 03/12/19 07:51 Blood Anaerobic Blood Culture - Preliminary No growth in Anaerobic bottle after 48 hours. 03/10/19 10:31 Blood Aerobic Blood Culture - Final Staph aureus MRSA 03/10/19 10:31 Blood Anaerobic Blood Culture - Final 03/09/19 03:09 Blood Aerobic Blood Culture - Final Staph aureus MRSA 03/09/19 03:09 Blood Anaerobic Blood Culture - Final Staph aureus MRSA 03/10/19 13:35 Sputum, Expectorated Gram Stain - Final 03/10/19 13:35 Sputum, Expectorated Sputum Culture - Final Staph aureus MRSA 03/09/19 03:00 Blood Aerobic Blood Culture - Final Staph aureus MRSA 03/09/19 03:00 Blood Anaerobic Blood Culture - Final Staph aureus MRSA PG Care Time/CCT Total # of Minutes Spent Total Time Spent with Patient: Total time spent is greater than 50% in coordination of care (as documented) at patient's floor/unit and/or counseling patient: (1) Pneumonia Laterality: bilateral Lung location: unspecified part of lung Pneumonia type: due to unspecified organism Qualified Code(s): J18.9 - Pneumonia, unspecified organism
--- NOTE | 2019-03-15 15:09 | Hospitalist Progress Note ---
Date of Service March 15, 2019 Assessment & Plan (1) Sepsis: MRSA/gram-positive bacteremia Patient with sepsis, gram-positive bacteremia, course of infection lungs/Pneumonia Presented with cough, respiratory distress, Multiple blood cultures: Positive for staph aureus MRSA on 03/09/19 , 03/10/2019, 03/12/2019 Last set of blood culture drawn on 03/14/2019: No growth in last 24 hours Sputum culture 03/13/2019: Positive for Staphylococcus aureus Appreciate input from ID Transthoracic echo shows no evidence of vegetation Recommends PICC line placement once blood culture remains negative IVF antibiotic ceftaroline 600 mg twice daily for total 6 weeks Patient will need a lab work: Weekly CBC, CMP, ESR while on IV antibiotic therapy ID follow-up with Dr. Alicea in the clinic in 4 weeks Community-acquired pneumonia/MRSA pneumonia blood cultures 03/08: MRSA repeat blood cultures 03/09: MRSA sputum culture: MRSA Blood cultures 03/12/2019: gram positive Echo: No mention of vegetation Vancomycin day number 3--> changed to Ceftaroline will need total [address] chest with contrast: Interval development of bilateral pleural effusions/multifocal airspace consolidation, likely representing a multifocal pneumonia, there is progressing lingular consolidation/cavitary lesion 1.5 cm noted on the right upper lobe(noted to have right upper lobe consolidation in CT chest dated 03/09/2019) Finding of CT chest discussed with pulmonology, Normal progression of disease process with staph aureus pneumonia, usually leading to use cavitary lesion in months Recommends long-term antibiotic, in agreement with IV ceftaroline for 6-week Repeat CT chest with contrast in 4 weeks to see improvement/resolution Outpatient follow-up with pulmonology in clinic in 4 weeks Chin cellulitis Resolved, no evidence of infection, erythema or swelling No abscess on CAT scan purulent drainage resolving Gen surg consulted- I&D not recommended Continue Ceftaroline Back Pain Thoracic Spine MRI: no acute fracture, disc herniation muscular pain? Toradol PRN for pain -- still having Right shoulder blade pain consulted pain management --> recommend baclofen for myofascial pain syndrome -- Thoracic MRI with contrast no evidence of acute discitis or osteomyelitis COPD, ongoing tobacco abuse not in exacerbation Smoking cessation counseling provided, patient is willing to quit History of HTN BP on the lower side recently started by PCP on lisinopril, patient yet to comply Aortic root ectasia CT scan of the chest noted, no dissection noted Echo also reviewed Avoid Levaquin Non specific EKG changes denies chest pain echo: no wall motion abnormalities, Grade 2 diastolic dysfunction Chronic back pain Surgery contemplated next month Having pain over the thoracic spine MRI thoracic spine: no fractures, (+) OA PRN analgesics ordered -management noted above Mood disorder stable Chronic Anemia, hemoglobin at baseline DVT prophylaxis. Lovenox subcu Full code Disposition lives with family at home Possible discharge home tomorrow if blood cultures remains negative, patient afebrile Will need to step exercise prior to discharge to assess home O2 needs PICC line will be placed tomorrow if blood cultures remains negative Prescription for 6-week of IV antibiotic at home will be given to case management for home antibiotic therapy Subjective Patient has been afebrile since this morning, Had left shoulder pain, much improved today, has minimum cough, no respiratory distress present at bedside, inquiring about possible arrangement for home O2 This patient is still having symptoms of JIMENEZ Managed to walk on the hallway x2 today, at the end patient found himself wheezing, very short of breath at the end Review of Systems Review of Systems: All systems reviewed & are unremarkable except as noted in HPI & below Physical Exam Constitutional: + ill appearing and + thin; no acute distress Eyes: PERRL, conjunctivae normal, anicteric sclerae ENMT: external ear and nose normal, oropharynx normal Neck: trachea midline, no thyromegaly Respiratory: + cough; no respiratory distress and no labored breathing A uscultation: + diminished lung sounds (Mostly on the right lower lobe), + crackles and + rales; no wheezes Cardiovascular: Rate/Rhythm: regular rate and regular rhythm Extremities: normal capillary refill; no pedal edema Gastrointestinal (Abdomen): normal bowel sounds, soft, nontender, no hepatosplenomegaly Musculoskeletal: no cyanosis or clubbing, extremities motor strength 5/5 Skin: no rashes, warm and dry Neurologic: PERRL, EOMI, accommodation nl, no face palsy, no dysarthria Results & Data Vital Signs (Past 12 Hours) Vital Signs Temp Pulse Resp BP Pulse Ox 03/15/19 07:14 37.4 C 86 18 121/72 90
[2019-03-16] MEDS: HYDROCODONE/ACETAMOPHEN 5/325MG TAB PO PRN ×3 (07:20→15:58)
[2019-03-16] MEDS ORDERED: POTASSIUM CHLORIDE 20 MEQ TABCR PO STA (07:39)
[2019-03-16] MEDS: PANTOprazole 40 MG TAB PO SCH (08:45)
[2019-03-16] MEDS: LORATADINE 10 MG TAB PO SCH (08:45)
[2019-03-16] MEDS: LACTOBACILLUS ACIDOPHILUS (FLORANEX) TAB PO SCH ×3 (08:45→18:00)
[2019-03-16] MEDS: ENOXAPARIN INJ 40 MG/0.4 ML SYR SQ SCH (08:46)
[2019-03-16] MEDS: LIDOCAINE 5% 1 PATCH TD SCH (08:47)
[2019-03-16] MEDS: NICOTINE 21 MG/24 HR TDSY TD SCH (08:47)
[2019-03-16] MEDS: BACLOFEN 10 MG TAB PO SCH ×2 (08:48→15:55)
[2019-03-16] MEDS: CEFTAROLINE FOSAMIL ACETATE 600 MG in SODIUM CHLORIDE 0.9% 250 ML IV SCH ×2 (08:54→17:58)
--- NOTE | 2019-03-16 12:09 | Discharge Summary ---
Date of Service March 16, 2019 Admission HPI Per Admitting Provider History obtained from patient, family, and records. Medical history significant for COPD, HTN, ongoing tobacco abuse, GERD, chronic back pain, mood disorder, chronic anemia (Baseline hemoglobin 12-13). Recent confinement November 2012 for chest pain secondary to viral illness. 3 days ago, patient developed flulike symptoms, cough productive of cruz sputum. Fever chills, worsening shortness of breath. Denies chest pain, nausea, vomiting, aspiration. Patient also developed a chin swelling which might have been from some shaving injury as per patient. Patient seen at PCP's office. Given Tamiflu for presumptive flu. Patient brought to the ER by for worsening symptoms. Patient received ceftriaxone, Levaquin for sepsis at the ER. Medical History as above No prior colonoscopies. Repeat laminectomy contemplated next month by [facility] [place] spine orthopedics Surgical History : Back surgery Family History : Heart disease, asthma, ADHD, pancreatic cancer Personal/Social history : One pack daily, no EtOH intake, disabled Principal Diagnosis SEPSIS /GRAM POSITIVE BACTEREMIA /COMMUNITY ACQUIRED PNEUMONIA WITH CAVITARY LUNG LESION Discharge Exam Constitutional + ill appearing and + thin; no acute distress Eyes PERRL, conjunctivae normal, anicteric sclerae ENMT external ear and nose normal, oropharynx normal Neck trachea midline, no thyromegaly Respiratory + cough; no respiratory distress and no labored breathing Auscultation: + diminished lung sounds (Mostly on the right lower lobe), + crackles and + rales; no wheezes Cardiovascular Rate/Rhythm: regular rate and regular rhythm Extremities: normal capillary refill; no pedal edema Gastrointestinal (Abdomen) normal bowel sounds, soft, nontender, no hepatosplenomegaly Musculoskeletal no cyanosis or clubbing, extremities motor strength 5/5 Skin no rashes, warm and dry Neurologic PERRL, EOMI, accommodation nl, no face palsy, no dysarthria Discharge Data Allergies Allergy/AdvReac Type Severity Reaction Status Date / Time cortisone Allergy Severe DROPPED Verified 03/09/19 01:04 B/P, PASSED OUT, BURNING SENSATION AT SITE. pollen extracts Allergy Intermediate SNEEZING, Verified 03/09/19 01:04 CONGESTION, COUGH. Iodinated Contrast Media AdvReac Intermediate GI Verified 03/09/19 01:04 SYMPTOMS--N/V Consultations 03/09/19 03:10 ED Decision to Admit Stat 03/10/19 07:58 Consult Infectious Diseases Routine 03/10/19 14:46 Consult General Surgery Routine 03/13/19 20:53 Consult Pain Management Routine Ordered Studies 03/09/19 00:32 CT facial bones w con Stat 03/09/19 01:37 CT angio chest PE protocol Stat 03/09/19 12:48 MR thoracic spine wo con Routine 03/14/19 14:55 MR thoracic spine wo/w con Routine 03/14/19 14:56 CT chest wo con Routine Hospital Course (1) Sepsis: MRSA/gram-positive bacteremia Patient with sepsis, gram-positive bacteremia, course of infection lungs/ MRSA Pneumonia Presented with cough, respiratory distress, Multiple blood cultures: Positive for staph aureus MRSA on 03/09/19 , 019, 03/12/2019 Last set of blood culture drawn on 03/14/2019: No growth Sputum culture 03/13/2019: Positive for Staphylococcus aureus Appreciate input from ID Transthoracic echo shows no evidence of vegetation IVF antibiotic ceftaroline 600 mg twice daily for total 6 weeks Patient will need a lab work: Weekly CBC, CMP, ESR while on IV antibiotic therapy ordered for PICC line arrangements made for home IV abx therapy ID follow-up with Dr. Francois in the clinic in 4 weeks Community-acquired pneumonia/MRSA pneumonia blood cultures 03/08: MRSA repeat blood cultures 03/09: MRSA sputum culture: MRSA Blood cultures 03/12/2019: gram positive Echo: No mention of vegetation IV Ceftaroline for MRSA will need total [address] chest with contrast: Interval development of bilateral pleural effusions/multifocal airspace consolidation, likely representing a multifocal pneumonia, there is progressing lingular consolidation/cavitary lesion 1.5 cm noted on the right upper lobe(noted to have right upper lobe consolidation in CT chest dated 03/09/2019) Finding of CT chest discussed with pulmonology, Normal progression of disease process with staph aureus pneumonia, usually leading to use cavitary lesion in months Recommends long-term antibiotic, in agreement with IV ceftaroline for 6-week Repeat CT chest with contrast in 4 weeks to see improvement/resolution Outpatient follow-up with pulmonology in clinic in 4 weeks Chin cellulitis has been ongoing for few weeks infection has Resolved, possible source of infection -MRSA bacteremia /leading to MRSA pneumonia no purulent drainage /no erythema or swelling on lower chin No abscess on CAT scan Gen surgery consulted- I&D not recommended Continue Ceftaroline Back Pain Thoracic Spine MRI: no acute fracture, disc herniation muscular pain? Toradol PRN for pain -- still having Right shoulder blade pain consulted pain management --> recommend baclofen for myofascial pain syndrome -- Thoracic MRI with contrast no evidence of acute discitis or osteomyelitis COPD, ongoing tobacco abuse not in exacerbation Smoking cessation counseling provided, patient is willing to quit ordered for Nicotine patch 2 step exercise shows : desaturation to 86 % with ambulation script given for home 02 2 L with ambulation History of HTN recently started by PCP on lisinopril, patient yet to comply cont out pt follow up with family physician pt is counselled for medication compliance Aortic root ectasia CT scan of the chest noted, no dissection noted Echo also reviewed Avoid Levaquin Non specific EKG changes denies chest pain echo: no wall motion abnormalities, Grade 2 diastolic dysfunction Chronic back pain chronic low back pain follows with Ortho with [facility] was scheduled for spinal surgery next months -needs to be postponed -gram positive bacteremia /MRSA pneumonia Having pain over the thoracic spine MRI thoracic spine: no fractures, (+) OA PRN analgesics ordered/appreciate input from Pain management team -pt follows with Pain clinic at [facility] script for Bentley given per pt's request -given limited supply # 6 tablets only PDMP reviewed pt last filled prescription for Bentley ( # 8 tablets ) on 02/24/19 -scripts was given from ER Physican pt is counselled to limit narotic pain meds Mood disorder stable Chronic Anemia, hemoglobin at baseline DVT prophylaxis. Lovenox subcu Full code Disposition stable to be discharged home today Family Physician follow up scheduled with Dr Stokes on Wednesday03/20/19 ID follow up with Dr Francois in 4-6 weeks Pulmonology follow up with Dr Lynn in 4-[address] chest with contrast to assess cavitary lesion by MRSA Pneumonia in 4 weeks Total Time Total Time Spent Total Time Spent (In Minutes): approx 45 mins Total Time Includes: Examination of the Patient, Discharge Planning and Medica tion Reconciliation Discharge Plan Discharge Items Patient Disposition: Home - Home Health Services Reason For Visit: SEPSIS Discharge Diagnosis: SEPSIS /GRAM POSITIVE BACTEREMIA /COMMUNITY ACQUIRED PNEUMONIA WITH CAVITARY LUNG LESION Activity: Resume your previous activity Non-emergency contact: Primary Care Provider Call non-emergency contact if: you have any medication questions Follow-up/Referrals: Ana Luisa Francois DO [Physician] - (FOLLOW UP WITH INFECTIOUS DISEASE DR FRANCOIS IN 4 WEEKS PLEASE CALL OFFICE TO SCHEDULE APPOINTMENT ) Dustin Lynn MD [Physician] - (LUNG SPECIALIST FOLLOW UP IN [address] CHEST WITH CONTRAST IN 4 WEEKS ) Lorena cShwarz DO [Primary Care Provider] - 03/20/19 12:45 pm (Hospital follow-up with Dr. Stokes on 03/11/2019 at 12:[address] Lorena Barnhart's schedule is full) Diet: Regular Ambulatory Orders: Complete Blood Count no Diff (Routine) Timeframe: 1 Week Location: Determined by Patient Ordered By: Laura Combs Comprehensive Metabolic Panel (Routine) Timeframe: 1 Week Location: Determined by Patient Ordered By: Laura Combs Erythrocyte Sedimentation Rate (Routine) Timeframe: 1 Week Location: Determined by Patient Ordered By: Laura Combs Addtl Attending Provider Instructions: Hospital follow-up with Dr. Stokes on 03/20/2019 at 12:[address] Lorena Barnhart's schedule is full will need 6 weeks IV ceftaroline, Lab work: Weekly cbc, cmp, esr while on therapy. Infectious disease follow-up: Dr. Francois in 4 weeks Lung specialist/pulmonology follow-up with Dr. Lynn in 4-5 weeks Please take [id number] probiotics/lactobacillus for 6 to 8 weeks when on antibiotics, to prevent antibiotic associated diarrhea/gastroenteritis(C. difficile infection) Please notify your family physician if you experience severe abdominal pain nausea vomiting or diarrhea CT CHEST WITH CONTRAST IN 6 WEEKS , PLEASE FOLLOW UP WITH LUNG SPECIALIST /PULMONOLOGY DR LYNN IN CLINIC Pending Studies at Discharge: Yes Studies:: CT CHEST WITH CONTRAST IN 4 WEEKS WEEKLY LABS : CBC , COMPREHENSIVE METABOLIC PANEL , ESR FOR 6 WEEKS WHILE GETTING IV ANTIBIOTIC ( IV CEFTAROLINE 600 MG BID ) FOR GRAM POSITIVE BACTEREMIA /SEPSIS Stand-Alone Forms: My [facility] [place] Medications and DC Order Prescriptions: New ceftaroline fosamil 600 mg recon soln 600 mg IV Q12H 42 Days Qty: 84 RF: 0 Probiotic 3 billion cell capsule 3,000 mmu cells PO DAILY Qty: 60 RF: 0 nicotine 21 mg/24 hr patch 24 hour 1 patch TD DAILY Qty: 28 RF: 3 hydrocodone-acetaminophen [Bentley] 5-325 mg Tablet 1 tab PO Q8 PRN (Reason: pain) Qty: 6 RF: 0 Continued omeprazole 40 mg Capsule,Delayed Release(Dr/Ec) 40 mg PO DAILY RF: 0 dicyclomine 10 mg Capsule 10 mg PO QID PRN (Reason: ABD PAIN) RF: 0 loratadine 10 mg Tablet 10 mg PO DAILY RF: 0 acetaminophen [Tylenol Extra Strength] 500 mg Tablet 1,000 mg PO QID PRN (Reason: Pain) RF: 0 naproxen sodium [Aleve] 220 mg Tablet 440 mg PO BID PRN (Reason: Pain) RF: 0 Discontinued cyclobenzaprine 10 mg tablet 10 mg PO TID PRN (Reason: muscle spasm) Qty: 15 RF: 0 Discharge Orders: Discharge Order (Routine); Ordered 03/16/19 Ordered By: Laura Combs Admission Data Admit Date/Time: 03/09/19 04:19 Attending Provider: Laura Combs Admit Provider: Aman Nelson Primary Care Provider: Lorena Schwarz Other Providers: Aman Nelson ; Ana Luisa Francois ; Paul Rehman ; Uziel Bruner
== END 2019-03-16 19:43 | disposition home health service (06) | DRG 871 ==
LOC: ED 00:09 → 4W 04:19 → SUATTDRO 04:19 → 4W 04:48

== ENCOUNTER 2019-04-24 12:11 | Inpatient (IN) ==
[2019-04-24] MEDS ORDERED: ONDANSETRON INJ 2 MG/ML 2 ML VIAL IV STA ×2 (12:51→13:50)
[2019-04-24 13:00] LABS: Hematocrit (blood only) 32.9 % (42-52); Hemoglobin 10.7 g/dL (14.0-18.0); Mean Corpuscular Hemoglobin 28.9 pg (25-34); Mean Corpuscular Hgb Conc 32.5 g/dL (32-36); Mean Corpuscular Volume 88.9 fL (80-100); Mean Platelet Volume 10.4 fL (7.4-10.4); Platelet Count 243 K/uL (130-400); RDW Coefficient of Variation 13.1 % (11.5-14.5); White Blood Count 2.25 K/uL (4.8-10.8)
[2019-04-24] MEDS ORDERED: SODIUM CHLORIDE 0.9% 1000ML 1,000 ML IV ONE (13:03)
[2019-04-24 13:07] LABS: Albumin Level 2.3 gm/dl (3.4-5.0); BUN Creatinine Ratio 19.9 (10-20); Calcium 8.8 mg/dl (8.5-10.1); Creatinine Clr Calc Pharmacy 95.8 ml/min; Est GFR (African American) 110.3; Est GFR (Non-African American) 95.2; Potassium 3.5 mmol/L (3.5-5.1)
--- NOTE | 2019-04-24 13:08 | XRay Report ---
XR chest 1V portable CLINICAL HISTORY: Sepsis COMPARISON STUDY: Chest CT March 14, 2019. FINDINGS: A left PICC is in place. There is no pneumothorax. Small left and trace right pleural effus ions are present. Cardiomediastinal silhouette is stable. Multifocal bilateral airspace opacities, gr eater within the left lung, have slightly progressed since exam of March 14, 2019. IMPRESSION: 1. Progression of bilateral airspace opacities, greater within the left lung. The findings favor mult ifocal pneumonia. Radiographic follow-up to ensure resolution is recommended. 2. Small left and trace right pleural effusions. 3. Emphysema. Electronically signed by: Harshal Arteaga M.D. 04/24/2019 1:06 PM
[2019-04-24 13:10] LABS: Albumin Globulin Ratio 0.6 (0.9-2); Bilirubin,Total 0.4 mg/dl (0.2-1); Total Protein 6.3 gm/dl (6.4-8.2)
[2019-04-24 13:42] LABS: INR 1.1 (0.9-1.1); Partial Thromboplastin Ratio 1.1; Partial Thromboplastin Time 28.9 Seconds (21.0-31.0); Prothrombin Time 11.3 Seconds (9.0-12.0)
[2019-04-24 14:06] LABS: Basophils # (auto) 0.06 K/uL (0-0.2); Basophils % (auto) 2.7 %; Lymphocytes # (auto) 1.07 K/uL (1.2-3.4); Lymphocytes % (auto) 47.6 %; Monocytes # (auto) 1.02 K/uL (0.11-0.59); Monocytes % (auto) 45.3 %; Neutrophils % (auto) 4.4 %
--- NOTE | 2019-04-24 14:37 | Ultrasound Report ---
LEFT UPPER EXTREMITY VENOUS DOPPLER ULTRASOUND CLINICAL HISTORY: Left upper extremity swelling. COMPARISON STUDY: No previous studies for comparison. FINDINGS: Left PICC is in place. There is extensive thrombus within the left subclavian, axillary, br achial, cephalic and basilic veins. IMPRESSION: Extensive venous thrombus within the left upper extremity, adjacent to the left PICC. Electronically signed by: Harshal Arteaga M.D. 04/24/2019 2:36 PM
[2019-04-24] MEDS ORDERED: OPTIRAY 320 125ml IV PRN (15:11)
--- NOTE | 2019-04-24 15:20 | CT Scan Report ---
CT angio chest PE protocol CT DOSE: 379.58 mGycm HISTORY: Chest pain +dd and cp TECHNIQUE: Multiaxial CT images of the chest were performed following the intravenous administration of contrast to evaluate the pulmonary arteries. Maximal intensity projection images were also obtaine d. A dose lowering technique was utilized adhering to the principles of ALARA. COMPARISON STUDY: 03/14/2019 FINDINGS: Mild atelectatic change and ectasia of the thoracic aorta. Pulmonary vasculature enhances appropriately. There are no significant filling defects. Hilar or mediastinal adenopathy is stable. There are progressive alveolar type infiltrates in the left and to a lesser extent right base. Interv al decrease in volume of bilateral pleural effusions. Improved cavitary lesion peripheral aspect left mid lung as well as anterior to the right hilum. Ther e is mild residual. Slight interstitial prominence throughout both upper lungs. IMPRESSION: 1. No evidence for pulmonary embolus. 2. Improved bilateral pleural effusions. 3. Progressive alveolar infiltrative changes of the lower lobes bilaterally. 4. Interval improvement in the peripheral infiltrative changes of the mid to upper lungs. The above report was generated using voice recognition software. It may contain grammatical, syntax or spelling errors. Electronically signed by: Marco A Oshea M.D. 04/24/2019 3:19 PM
[2019-04-24] MEDS ORDERED: VANCOMYCIN HCL 1,750 MG in SODIUM CHLORIDE 0.9% 500 ML IV ONE (15:36)
[2019-04-24] MEDS ORDERED: VANCOMYCIN CONSULT ACTIVE PRN ×2 (15:36→19:33)
[2019-04-24] MEDS ORDERED: HEPARIN SOD (PORCINE) 1000 UNIT/ML 10 ML VIAL ONE (15:58)
[2019-04-24] MEDS: HEPARIN SODIUM/DEXTROSE 25,000 UNITS/500 ML BAG IV SCH (16:01)
--- NOTE | 2019-04-24 18:41 | History & Physical Report ---
Date of Service April 24, 2019 Assessment & Plan (1) Worsening pneumonia: (2) DVT (deep venous thrombosis): (3) Hypoxia: (4) Neutropenic: (5) HTN (hypertension): (6) Chest pain: (7) COPD (chronic obstructive pulmonary disease): (8) GERD (gastroesophageal reflux disease): Heparin drip, infectious disease eval, cefepime and vancomycin, oxygen, remove PICC line and place peripheral, was almost finished his ceftaroline course. Pulmonary valve condition does not improve. History of Present Illness 53-year-old male with past medical history of MRSA pneumonia recently discharged on March 16, neutropenia, hypertension, gram-positive sepsis, chin cellulitis, COPD, GERD, chronic back pain, turns with shortness of breath and left upper extremity swelling. On his last admission he was positive for nerve MRSA bacteremia and treated with ceftaroline, he was seen by Dr. Alicea from infectious disease. He had a PICC line placed prior to discharge and today we revealed a DVT in his left upper extremity at the PICC site. He developed bilateral pleural effusions which seemed to be slightly resolved compared to previous scans. He was seen by pulmonary Dr. Tuttle as an outpatient. In the emergency room he was short of breath complain of left upper extremity swelling and was placed on 5 L of oxygen. He was also placed on a heparin drip in the emergency room. Chest x-ray revealed- Progression of bilateral airspace opacities, greater within the left lung. The findings favor multifocal pneumonia. CTA of the chest was negative for pulmonary embolism, ultrasound of left upper extremities positive for DVT at PICC line site. Primary Care Provider: Lorena Schwarz DO Allergies Allergy/AdvReac Type Severity Reaction Status Date / Time cortisone Allergy Severe DROPPED Verified 04/24/19 14:43 B/P, PASSED OUT, BURNING SENSATION AT SITE. pollen extracts Allergy Intermediate SNEEZING, Verified 04/24/19 14:43 CONGESTION, COUGH. Iodinated Contrast Media AdvReac Intermediate GI Verified 04/24/19 14:43 SYMPTOMS--N/V Home Medications Home Medications Medication Instructions Recorded Confirmed Type dicyclomine 10 mg PO QID PRN 05/16/18 04/24/19 History loratadine 10 mg PO DAILY 05/16/18 04/24/19 History omeprazole 40 mg PO DAILY 05/16/18 04/24/19 History acetaminophen [Tylenol Extra 1,000 mg PO QID PRN 10/04/18 04/24/19 History Strength] naproxen sodium [Aleve] 220 mg PO BID PRN 10/04/18 04/24/19 History ceftaroline fosamil 600 mg IV Q12H 42 Days #84 ea 03/15/19 04/24/19 Rx hydrocodone-acetaminophen [[place]] 1 tab PO Q8 PRN #6 tab 03/16/19 04/24/19 Rx lactobacillus combination no.4 3,000 mmu cells PO DAILY #60 cap 03/16/19 04/24/19 Rx [Probiotic] ibuprofen 800 mg PO TID PRN 04/24/19 04/24/19 History lidocaine 1 patch TRANSDERMAL DAILY 04/24/19 04/24/19 History Past Med/Surg History Medical History Cellulitis of face (Acute) Chest pain (Acute) Chronic lumbar pain (Chronic) COPD (chronic obstructive pulmonary disease) (Acute) Dyspnea (Acute) GERD (gastroesophageal reflux disease) (Chronic) Gram positive sepsis HTN (hypertension) Pneumonia (Acute) Sepsis Surgical History History of back surgery (Resolved) Family History Other No significant family history Social History Preferred Language: Barbadian Communication Ability: Effective Building Rigger Required: No Beliefs That Will Affect Care: None marital status: Current Living Situation: Spouse current occupational status: unemployed and disabled Other Information That Helps Us Care for You: No Feels Safe at Home: Yes Safety Concerns: Feels Safe At This Time Smoking Status: Current every day smoker Tobacco Type: cigarettes ; Cigarettes Per Day: 30 ; Hx Alcohol Use: No Hx Substance Use: No Physical Exam Physical Exam: ROS-No Headache, No Visual Changes, No Nausea, No Vomiting, No Fever, No Chills, No Neck Pain or Stiffness, No Chest Pain, No Palpitations, + SOB, +JIMENEZ, No Cough, No Sputum, No Wheezing, No Abdominal Pain, No Diarrhea, No Hematemesis, No Hemoptysis, No Unexpected Weight Loss, No Flank pain, No Melena, No Hematochezia, No Frequency, No Urgency, No Burning, No Hematuria, No Rashes, No Diaphoresis. Appetite is Normal, positive left upper extremity swelling Physical Exam Gen-AAO x 3, NAD, Afebrile, pleasant Head-NCAT, EOMI, PERRLA, Anicteric Sclera, No Posterior Pharyngeal Erythema Neck-Supple, No JVD, No Thyromegaly, No Masses, No LAD, No Bruits Lungs-Clear to Auscultation Bilaterally, No Rales, No Rhonchi, No Wheezing, No Crepitus Chest-No S4, +S1, +S2, No S3, No Murmurs, No Rubs, No Gallops, No Ectopy Abdomen-Soft, Bowel Sounds Present, Non Tender, Non Distended, No Hepatomegaly, No Splenomegaly, No Palpable Masses, No Rebound, No Rigidity, No Guarding Musculoskeletal-Full Range of Motion Bilaterally, No CVAT Extremities-No Cyanosis, No Clubbing, No Edema Nuero-Cranial Nerves II-XII grossly intact, Motor WNL, DTRs WNL, Strength WNL, Non Focal Psych-Normal Mood Results & Data Vital Signs (Past 12 Hours) Vital Signs Temp Pulse Pulse Resp BP BP Pulse Ox 04/24/19 16:01 63 22 92 04/24/19 16:00 65 18 99/61 L 93 04/24/19 15:31 62 20 106/70 97 04/24/19 15:30 60 21 98 04/24/19 15:12 64 21 88 L 04/24/19 14:32 69 20 109/71 90 04/24/19 13:21 67 22 106/71 91 04/24/19 13:03 76 22 101/71 93 04/24/19 12:36 94 04/24/19 12:28 36.8 C 70 24 129/80 85 L Allergies cortisone Allergy (Severe, Verified 04/24/19 14:43) DROPPED B/P, PASSED OUT, BURNING SENSATION AT SITE. pollen extracts Allergy (Intermediate, Verified 04/24/19 14:43) SNEEZING, CONGESTION, COUGH. Iodinated Contrast Media Adverse Reaction (Intermediate, Verified 04/24/19 14:43) GI SYMPTOMS--N/V Height/Weight/Isolation Height 6 ft Weight 73 kg Chemistry 04/24/19 11:52 Sodium 139 Potassium 3.5 Chloride 110 H Carbon Dioxide 21 Anion Gap 8.0 BUN 18 Creatinine 0.91 Glucose 136 H Microbiology 04/24/19 13:11 Blood Aerobic Blood Culture - Pending 04/24/19 13:11 Blood Anaerobic Blood Culture - Pending 04/24/19 13:14 Blood Aerobic Blood Culture - Pending 04/24/19 13:14 Blood Anaerobic Blood Culture - Pending Code Status & VTE Plan VTE Prophylaxis Plan VTE Prophylaxis will be ordered: Yes (1) Neutropenic Neutropenia type: unspecified Qualified Code(s): D70.9 - Neutropenia, unspecified (2) DVT (deep venous thrombosis) Affected thrombotic vein of extremity: unspecified vein of extremity Chronicity: unspecified DVT location: upper extremity Laterality: unspecified laterality Qualified Code(s): I82.629 - Acute embolism and thrombosis of deep veins of unspecified upper extremity (3) Chest pain Chest pain type: unspecified Qualified Code(s): R07.9 - Chest pain, unspecified (4) COPD (chronic obstructive pulmonary disease) COPD type: unspecified COPD Qualified Code(s): J44.9 - Chronic obstructive pulmonary disease, unspecified
--- NOTE | 2019-04-24 19:21 | Emergency Department Note ---
Entered by Dayan Milton acting as a scribe for Royal Daniel DO History of Present Illness General Chief complaint: Swelling/Edema to Extremity Stated complaint: swelling to L arm Source: patient History of Present Illness Onset (ago): day(s) (this morning) Location: upper extremity (left) Pain Consistency: + other (sudden) Maximum Pain Intensity: 5 Quality: + other (swelling) Associated symptoms: + denies other symptoms (tingling, numbness), + chest pain and + fever/chills (fever); no cough and no shortness of breath The patient is a 53 year old male who presents to the Emergency Room with complaints of sudden swelling in his left arm starting this morning. The patient states that 5 weeks ago he was in the hospital for pneumonia and was discharged with a PICC line in his left arm to get IV Ceftaroline 600 mg for 6 weeks. He notes that he was also told to wear oxygen when he was up moving around as well. The patient states that a week ago he started having left sided chest tightness. He reports that he assumed that it was normal for his pneumonia. He states that this morning he then started having left arm swelling. The patient states that when his home health nurse came she recommended that he come to the ED. He notes that he has also needed his oxygen even when he is sitting. The patient complains of intermittent fever, but denies it being over 100.4. The patient denies the use of blood thinners, tingling, numbness, new cough, and new shortness of breath. Home Medications Home Medications Medication Instructions Recorded Confirmed Type dicyclomine 10 mg PO QID PRN 05/16/18 04/24/19 History loratadine 10 mg PO DAILY 05/16/18 04/24/19 History omeprazole 40 mg PO DAILY 05/16/18 04/24/19 History acetaminophen [Tylenol Extra 1,000 mg PO QID PRN 10/04/18 04/24/19 History Strength] naproxen sodium [Aleve] 220 mg PO BID PRN 10/04/18 04/24/19 History ceftaroline fosamil 600 mg IV Q12H 42 Days #84 ea 03/15/19 04/24/19 Rx hydrocodone-acetaminophen [Alpine] 1 tab PO Q8 PRN #6 tab 03/16/19 04/24/19 Rx lactobacillus combination no.4 3,000 mmu cells PO DAILY #60 cap 03/16/19 04/24/19 Rx [Probiotic] ibuprofen 800 mg PO TID PRN 04/24/19 04/24/19 History lidocaine 1 patch TRANSDERMAL DAILY 04/24/19 04/24/19 History Allergies Allergy/AdvReac Type Severity Reaction Status Date / Time cortisone Allergy Severe DROPPED Verified 04/24/19 14:43 B/P, PASSED OUT, BURNING SENSATION AT SITE. pollen extracts Allergy Intermediate SNEEZING, Verified 04/24/19 14:43 CONGESTION, COUGH. 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 and A total of 10 systems reviewed and were otherwise negative Physical Exam Vital Signs Vital Signs - 24 hr 04/24/19 12:28 04/24/19 12:36 04/24/19 13:03 Temperature 36.8 C Temperature Source Oral Pulse Rate 70 Pulse Rate [Right] 76 Pulse Rate from SpO2 Sensor Respiratory Rate 24 22 Respiratory Effort / Characteristics Spontaneous Non-Labored Spontaneous Blood Pressure 129/80 Blood Pressure [Right Arm] 101/71 Blood Pressure Mean 96 Blood Pressure Mean [Right Arm] 81 Blood Pressure Position Lying Blood Pressure Position [Right Arm] Pulse Oximetry 85 L 94 93 Oxygen Delivery Method Room Air Nasal Cannula Nasal Cannula Oxygen Flow Rate 6 3.5 Sepsis Recent Fever Within 48 Hours Yes Sepsis New/Unexplained Change in Mental Status No Sepsis Action Taken by Nursing No Action Required Oxygen Flow Rate - Titration 3.5 Pulse Oximetry Post Tiitration 93 04/24/19 13:21 04/24/19 14:32 04/24/19 15:12 Temperature Temperature Source Pulse Rate 64 Pulse Rate [Right] 67 69 Pulse Rate from SpO2 Sensor 64 Respiratory Rate 22 20 21 Respiratory Effort / Characteristics Spontaneous Blood Pressure Blood Pressure [Right Arm] 106/71 109/71 Blood Pressure Mean Blood Pressure Mean [Right Arm] 82 83 Blood Pressure Position Blood Pressure Position [Right Arm] Lying Pulse Oximetry 91 90 88 L Oxygen Delivery Method Nasal Cannula Nasal Cannula Nasal Cannula Oxygen Flow Rate 3.5 5 5 Sepsis Recent Fever Within 48 Hours Sepsis New/Unexplained Change in Mental Status Sepsis Action Taken by Nursing Oxygen Flow Rate - Titration Pulse Oximetry Post Tiitration 04/24/19 15:30 04/24/19 15:31 04/24/19 16:00 Temperature Temperature Source Pulse Rate 60 62 65 Pulse Rate [Right] Pulse Rate from SpO2 Sensor 61 61 65 Respiratory Rate 21 20 18 Respiratory Effort / Characteristics Blood Pressure 106/70 99/61 L Blood Pressure [Right Arm] Blood Pressure Mean 79 78 Blood Pressure Mean [Right Arm] Blood Pressure Position Blood Pressure Position [Right Arm] Pulse Oximetry 98 97 93 Oxygen Delivery Method Oxygen Flow Rate Sepsis Recent Fever Within 48 Hours Sepsis New/Unexplained Change in Mental Status Sepsis Action Taken by Nursing Oxygen Flow Rate - Titration Pulse Oximetry Post Tiitration 04/24/19 16:01 04/24/19 16:30 04/24/19 17:00 Temperature Temperature Source Pulse Rate 63 61 66 Pulse Rate [Right] Pulse Rate from SpO2 Sensor 62 61 66 Respiratory Rate 22 23 14 Respiratory Effort / Characteristics Blood Pressure Blood Pressure [Right Arm] Blood Pressure Mean Blood Pressure Mean [Right Arm] Blood Pressure Position Blood Pressure Position [Right Arm] Pulse Oximetry 92 97 96 Oxygen Delivery Method Oxygen Flow Rate Sepsis Recent Fever Within 48 Hours Sepsis New/Unexplained Change in Mental Status Sepsis Action Taken by Nursing Oxygen Flow Rate - Titration Pulse Oximetry Post Tiitration 04/24/19 17:01 04/24/19 17:30 04/24/19 18:00 Temperature Temperature Source Pulse Rate 73 65 66 Pulse Rate [Right] Pulse Rate from SpO2 Sensor 71 65 66 Respiratory Rate 21 20 22 Respiratory Effort / Characteristics Blood Pressure 114/73 Blood Pressure [Right Arm] Blood Pressure Mean 83 82 Blood Pressure Mean [Right Arm] Blood Pressure Position Blood Pressure Position [Right Arm] Pulse Oximetry 95 94 91 Oxygen Delivery Method Oxygen Flow Rate Sepsis Recent Fever Within 48 Hours Sepsis New/Unexplained Change in Mental Status Sepsis Action Taken by Nursing Oxygen Flow Rate - Titration Pulse Oximetry Post Tiitration 04/24/19 18:01 Temperature Temperature Source Pulse Rate 65 Pulse Rate [Right] Pulse Rate from SpO2 Sensor 65 Respiratory Rate 23 Respiratory Effort / Characteristics Blood Pressure Blood Pressure [Right Arm] Blood Pressure Mean Blood Pressure Mean [Right Arm] Blood Pressure Position Blood Pressure Position [Right Arm] Pulse Oximetry 92 Oxygen Delivery Method Oxygen Flow Rate Sepsis Recent Fever Within 48 Hours Sepsis New/Unexplained Change in Mental Status Sepsis Action Taken by Nursing Oxygen Flow Rate - Titration Pulse Oximetry Post Tiitration GENERAL: sitting up in bed, chronically ill appearing, on 4L nasal cannula, cachectic, no acute distress EYE EXAM: normal conjunctiva OROPHARYNX: no exudate, no erythema, lips, buccal mucosa, and tongue normal and mucous membranes are moist NECK: supple, no nuchal rigidity, no adenopathy, non-tender LUNGS: Clear to auscultation. Normal chest wall mechanics HEART: no murmurs, S1 normal and S2 normal ABDOMEN: abdomen soft, non-tender, normo-active bowel sounds, no masses, no rebound or guarding. BACK: Back is symmetrical on inspection and there is no deformity, no midline tenderness, no CVA tenderness. SKIN: no rashes and no bruising UPPER EXTREMITIES: Left forearm and humerus are larger than right. Radial pulse is 2/4. PICC line in left mid humerus. LOWER EXTREMITIES: No pitting edema. NEURO EXAM: Normal sensorium, cranial nerves II-XII grossly intact, normal speech, no gross weakness of arms, no gross weakness of legs. Course Course ED COURSE: Vital signs were reviewed and showed situational hypertension. The patients medical record was reviewed The above diagnostic studies were performed and reviewed. ED treatments and interventions as stated above. 1245: The patient was evaluated in room A3. A complete history and physical examination was performed. 1540: Upon reevaluation, the patient is resting comfortably. I discussed my findings with the patient and he understands and agrees with the treatment plan. Based on the patients age, coexisting illnesses, exam and lab findings the decision to treat as an inpatient was made. The patient remained stable while under my care. The patient will be evaluated for further management. 1604: I discussed the patient's case with Monica Florian PA-C- [facility] Hospitalist. She will evaluate the patient for further management. Administered Medications Heparin Sodium/Dextrose (Heparin Sodium/Dextrose) 25,000 units in 500 mls @ 26 mls/hr IV .[id number] [facility] [place]; Protocol Stop: 05/24/19 15:44 Last Admin: 04/24/19 16:01 Dose: 1,300 units/hr, 26 mls/hr Documented by: [id number] Cosigned by: [id number] Ioversol (Optiray 320 125ml) 115 ml IV ONCE PRN PRN Reason: Interaction Checking Stop: 04/28/19 15:10 Last Admin: 04/24/19 15:12 Dose: 115 ml Documented by: [id number] Discontinued Medications Heparin Sodium (Porcine) (Heparin Iv Bolus) Confirm Administered Dose 10,000 units .ROUTE .STK-MED ONE Stop: 04/24/19 15:59 Last Admin: 04/24/19 16:01 Dose: 5,000 units Documented by: [id number] Cosigned by: [id number] Heparin Sodium/Dextrose () 1 ea IV NOW STA; Protocol Stop: 04/24/19 15:37 Last Admin: 04/24/19 16:01 Dose: Not Given Documented by: [id number] Sodium Chloride (Nss 1000ml) 1,000 mls @ 999 mls/hr IV .[id number] ONE Stop: 04/24/19 14:03 Last Infusion: 04/24/19 14:20 Dose: 0 mls/hr Documented by: [id number] Admin: 04/24/19 13:17 Dose: 999 mls/hr Documented by: [id number] Vancomycin HCl 1,750 mg/ (Sodium Chloride) 535 mls @ 200 mls/hr IV NOW ONE Stop: 04/24/19 18:16 Last Infusion: 04/24/19 19:10 Dose: 0 mls/hr Documented by: [id number] Admin: 04/24/19 16:28 Dose: 200 mls/hr Documented by: [id number] Ondansetron HCl (Zofran) 4 mg IV NOW STA Stop: 04/24/19 12:52 Last Admin: 04/24/19 13:19 Dose: 4 mg Documented by: [id number] Ondansetron HCl (Zofran) 4 mg IV NOW STA Stop: 04/24/19 13:51 Last Admin: 04/24/19 14:55 Dose: Not Given Documented by: [id number] Critical Care Time Critical Care Time: Yes Total Critical Care Time: 40 I have personally spent 40 minutes of critical care time in the direct management of this patient. This includes bedside care, interpretation of diagnostic studies, and testing, discussion with consultants, patient, and family members, and other required patient management activities. This 40 m inutes is in excess of all separately billable procedures. Medical Decision Making Differential Diagnosis Differential diagnoses includes but is not limited to pneumonia, bronchitis, COPD/Asthma exacerbation, pneumothorax, pulmonary embolism, congestive heart failure, acute coronary syndrome Medical Records Attestation: I reviewed the patient's medical records. Home Medications Current Medication List: was personally reviewed by me Laboratory Data Attestation: I reviewed the patient's lab results. Result diagrams: 04/24/19 11:52 04/24/19 11:52 Lab Results 04/24/19 04/24/19 04/24/19 Range/Units 11:52 11:52 11:52 WBC 2.25 L (4.8-10.8) K/uL RBC 3.70 L (4.7-6.1) M/uL Hgb 10.7 L (14.0-18.0) g/dL Hct 32.9 L (42-52) % MCV 88.9 (80-100) fL MCH 28.9 (25-34) pg MCHC 32.5 (32-36) g/dL RDW Std Deviation 42.0 (36.4-46.3) fL RDW Coeff of Angela 13.1 (11.5-14.5) % Plt Count 243 (130-400) K/uL MPV 10.4 (7.4-10.4) fL Immature Gran % (Auto) 0.0 % Neut % (Auto) 4.4 % Lymph % (Auto) 47.6 % [place] % (Auto) 45.3 % Eos % (Auto) 0.0 % Baso % (Auto) 2.7 % Immature Gran # (Auto) 0.00 (0.00-0.02) K/uL Neut # (Auto) 0.10 L* (1.4-6.5) K/uL Lymph # (Auto) 1.07 L (1.2-3.4) K/uL [place] # (Auto) 1.02 H (0.11-0.59) K/uL Eos # (Auto) 0.00 (0-0.5) K/uL Baso # (Auto) 0.06 (0-0.2) K/uL PT Cancelled INR Cancelled APTT Cancelled PTT Ratio Cancelled Sodium 139 (136-145) mmol/L Potassium 3.5 (3.5-5.1) mmol/L Chloride 110 H (98-107) mmol/L Carbon Dioxide 21 (21-32) mmol/L Anion Gap 8.0 (3-11) BUN 18 (7-18) mg/dl Creatinine 0.91 (0.6-1.4) mg/dl Est Cr Clr Drug Dosing 95.8 ml/min Est GFR ( Amer) 110.3 Est GFR (Non-Af Amer) 95.2 BUN/Creatinine Ratio 19.9 (10-20) Glucose 136 H (70-99) mg/dl Lactate (0.4-2.0) mmol/L Calcium 8.8 (8.5-10.1) mg/dl Total Bilirubin 0.4 (0.2-1) mg/dl AST 12 L (15-37) U/L ALT 11 L (12-78) U/L Alkaline Phosphatase 86 (45-117) U/L Total Protein 6.3 L (6.4-8.2) gm/dl Albumin 2.3 L (3.4-5.0) gm/dl Globulin 4.0 (2.5-4.0) gm/dl Albumin/Globulin Ratio 0.6 L (0.9-2) 04/24/19 04/24/19 Range/Units 13:11 13:14 WBC (4.8-10.8) K/uL RBC (4.7-6.1) M/uL Hgb (14.0-18.0) g/dL Hct (42-52) % MCV (80-100) fL MCH (25-34) pg MCHC (32-36) g/dL RDW Std Deviation (36.4-46.3) fL RDW Coeff of [place] (11.5-14.5) % Plt Count (130-400) K/uL MPV (7.4-10.4) fL Immature Gran % (Auto) % Neut % (Auto) % Lymph % (Auto) % [place] % (Auto) % Eos % (Auto) % Baso % (Auto) % Immature Gran # (Auto) (0.00-0.02) K/uL Neut # (Auto) (1.4-6.5) K/uL Lymph # (Auto) (1.2-3.4) K/uL [place] # (Auto) (0.11-0.59) K/uL Eos # (Auto) (0-0.5) K/uL Baso # (Auto) (0-0.2) K/uL PT 11.3 INR 1.1 APTT 28.9 PTT Ratio 1.1 Sodium (136-145) mmol/L Potassium (3.5-5.1) mmol/L Chloride (98-107) mmol/L Carbon Dioxide (21-32) mmol/L Anion Gap (3-11) BUN (7-18) mg/dl Creatinine (0.6-1.4) mg/dl Est Cr Clr Drug Dosing ml/min Est GFR ( Amer) Est GFR (Non-Af Amer) BUN/Creatinine Ratio (10-20) Glucose (70-99) mg/dl Lactate 1.4 (0.4-2.0) mmol/L Calcium (8.5-10.1) mg/dl Total Bilirubin (0.2-1) mg/dl AST (15-37) U/L ALT (12-78) U/L Alkaline Phosphatase (45-117) U/L Total Protein (6.4-8.2) gm/dl Albumin (3.4-5.0) gm/dl Globulin (2.5-4.0) gm/dl Albumin/Globulin Ratio (0.9-2) Imaging Data Radiologist's Impression: Radiology results as stated below per my review and the radiologist's interpretation: XR chest 1V portable CLINICAL HISTORY: Sepsis COMPARISON STUDY: Chest CT March 14, 2019. FINDINGS: A left PICC is in place. There is no pneumothorax. Small left and trace right pleural effusions are present. Cardiomediastinal silhouette is stable. Multifocal bilateral airspace opacities, greater within the left lung, have slightly progressed since exam of March 14, 2019. IMPRESSION: 1. Progression of bilateral airspace opacities, greater within the left lung. The findings favor multifocal pneumonia. Radiographic follow-up to ensure resolution is recommended. 2. Small left and trace right pleural effusions. 3. Emphysema. Electronically signed by: Harshal Arteaga M.D. 04/24/2019 1:06 PM LEFT UPPER EXTREMITY VENOUS DOPPLER ULTRASOUND CLINICAL HISTORY: Left upper extremity swelling. COMPARISON STUDY: No previous studies for comparison. FINDINGS: Left PICC is in place. There is extensive thrombus within the left subclavian, axillary, brachial, cephalic and basilic veins. IMPRESSION: Extensive venous thrombus within the left upper extremity, adjacent to the left PICC. Electronically signed by: Harshal Arteaga M.D. 04/24/2019 2:[address] angio chest PE protocol CT DOSE: 379.58 mGycm HISTORY: Chest pain +dd and cp TECHNIQUE: Multiaxial CT images of the chest were performed following the intravenous administration of contrast to evaluate the pulmonary arteries. Maximal intensity projection images were also obtained. A dose lowering technique was utilized adhering to the principles of ALARA. COMPARISON STUDY: 03/14/2019 FINDINGS: Mild atelectatic change and ectasia of the thoracic aorta. Pulmonary vasculature enhances appropriately. There are no significant filling defects. Hilar or mediastinal adenopathy is stable. There are progressive alveolar type infiltrates in the left and to a lesser extent right base. Interval decrease in volume of bilateral pleural effusions. Improved cavitary lesion peripheral aspect left mid lung as well as anterior to the right hilum. There is mild residual. Slight interstitial prominence throughout both upper lungs. IMPRESSION: 1. No evidence for pulmonary embolus. 2. Improved bilateral pleural effusions. 3. Progressive alveolar infiltrative changes of the lower lobes bilaterally. 4. Interval improvement in the peripheral infiltrative changes of the mid to upper lungs. The above report was generated using voice recognition software. It may contain grammatical, syntax or spelling errors. Electronically signed by: Marco A Oshea M.D. 04/24/2019 3:19 PM Blood Pressure Blood Pressure Findings: Elevated blood pressure Blood Pressure Disposition: elevated BP felt to be situational MDM Narrative Patient is a 53-year-old male who presents the ER for swelling of his left upper extremity that started in the past 24 hours. Upon review of his chart he was treated for MRSA bacteremia and placed on ceftaroline 600 mg IV twice daily. Upon arrival he is found to be more hypoxic and was placed on 5 L. He is only supposed to wear 3 L as needed. He was 83% on room air. He eventually had to be transitioned to anoxic mass due to worsening hypoxia. IV was established blood work was obtained and shows a leukopenia with a mild anemia 10.7 thousand. He had a significant neutropenia at 100. Question if this is secondary to the ceftaroline versus infection. INR was unremarkable. BMP along with LFTs bilirubin was unremarkable. Chest x-ray appears to be worsening. CT PE shows worsening of the alveolar disease. Ultrasound of left upper extremity shows DVT. Patient was placed on heparin drip and given a bolus. He was given IV vancomycin as well. Discussed with the hospitalist and admitted for further work-up. Patient denied any history of vomiting blood, coughing blood, urinating blood, dark tarry stools, recent surgeries or previous brain bleeds. Impression & Plan Hypoxia, Neutropenic, Worsening pneumonia, DVT (deep venous thrombosis) Discharge Plan Visit Data Chief Complaint: Swelling/Edema to Extremity Stated Complaint: swelling to L arm ED Provider: Royal Daniel Discharge Problem: Hypoxia, Neutropenic, Worsening pneumonia, DVT (deep venous thrombosis) Patient Disposition: Being Evaluated by Hospitalist Discharge Instructions Interventions: ED Discharge Assessment Last Done: 04/24/19 19:08 Discharge Problem: Neutropenic Qualifiers: Neutropenia type: unspecified Qualified Code(s): D70.9 - Neutropenia, unspecified DVT (deep venous thrombosis) Qualifiers: DVT location: upper extremity Affected thrombotic vein of extremity: unspecified vein of extremity Chronicity: unspecified Laterality: unspecified laterality Qualified Code(s): I82.629 - Acute embolism and thrombosis of deep veins of unspecified upper extremity The scribe's documentation has been prepared under my direction and personally reviewed by me in its entirety. I confirm that the note above accurately reflects all work, treatment, procedures, and medical decision making performed by me.
[2019-04-24] MEDS ORDERED: ACETAMINOPHEN 500 MG TAB PO PRN (19:33)
[2019-04-24] MEDS ORDERED: DICYCLOMINE HCL 10 MG CAP PO PRN (19:33)
[2019-04-24] MEDS ORDERED: ALUMINUM/MAGNESIUM SUSP 30 ML UDC PO PRN (19:33)
[2019-04-24] MEDS ORDERED: HEPARIN SODIUM/DEXTROSE 25,000 UNITS/500 ML BAG IV SCH (19:33)
[2019-04-24] MEDS ORDERED: ONDANSETRON INJ 2 MG/ML 2 ML VIAL IV PRN (19:33)
[2019-04-24] MEDS ORDERED: Heparin IV Standard *NO* Bolus IV ONE (19:33)
[2019-04-24] MEDS ORDERED: CEFEPIME 1,000 MG in SYRINGE 0 ML IV SCH (19:33)
[2019-04-24] MEDS ORDERED: NAPROXEN 250 MG TAB PO PRN (20:14)
--- NOTE | 2019-04-24 20:42 | Pharmacy Report ---
Pharmacy Abx Initial Consult - Date of Service April 24, 2019 - Pharmacy Dosing Scope Date of Consult: 04/24/19 Consultation requested by: Dr. Swanson Pharmacy is consulted to initiate Vancomycin IV dosing therapy, order appropriate labs and adjust drug dose/frequency. - Subjective The patient is a 53 year old M admitted on 04/24/19 18:27. - Objective Height: 6 ft Weight: 73 kg Vital Signs (Past 12hrs): Vital Signs Temp Pulse Pulse Resp BP BP Pulse Ox 04/24/19 20:14 18 92 04/24/19 19:20 36.8 C 68 18 125/78 90 04/24/19 19:01 67 18 94 04/24/19 19:00 62 20 111/76 95 04/24/19 18:31 63 22 93 04/24/19 18:30 63 22 117/81 93 04/24/19 18:01 65 23 92 04/24/19 18:00 66 22 114/73 91 04/24/19 17:30 65 20 94 04/24/19 17:01 73 21 95 04/24/19 17:00 66 14 96 04/24/19 16:30 61 23 97 04/24/19 16:01 63 22 92 04/24/19 16:00 65 18 99/61 L 93 04/24/19 15:31 62 20 106/70 97 04/24/19 15:30 60 21 98 04/24/19 15:12 64 21 88 L 04/24/19 14:32 69 20 109/71 90 04/24/19 13:21 67 22 106/71 91 04/24/19 13:03 76 22 101/71 93 04/24/19 12:36 94 04/24/19 12:28 36.8 C 70 24 129/80 85 L Lab Results (24hrs): Laboratory Tests (24 Hours) 04/24/19 04/24/19 11:52 11:52 WBC 2.25 L Neut # (Auto) 0.10 L* Creatinine 0.91 Est Cr Clr Drug Dosing 95.8 Micro Results: 04/24/19 13:11 Aerobic Blood Culture - Pending Blood Anaerobic Blood Culture - Pending 04/24/19 13:14 Aerobic Blood Culture - Pending Blood Anaerobic Blood Culture - Pending - Risk Factors for Resistance * Hospitalization for 48 hours or more within the past 90 days * History of infection with a multidrug-resistant organism: MRSA Pneumonia 03/09-03/16 * Antimicrobial use within the last 90 days: Vancomycin, Ceftaroline, Ceftriaxone, Doxycycline, Zosyn - Assessment & Plan Assessment 53 year old M admitted on 04/24/19 w/ chief complaint of shortness of breath and left upper extremity swelling - Admitted 03/09/19-03/16/19 with MRSA bacteremia and pneumonia treated as an outpatient with ceftaroline - DVT revealed in L upper extremity at site of PICC - CTA of chest favoring multifocal pneumonia Plan IV Vancomycin and Cefepime for treatment of Pneumonia Vancomycin IV * Estimated PK Parameters: Vd 0.6 L/kg, Cesar 0.084 hr-1, t1/2 ~8 hrs * Loading dose: 1750 mg (24 mg/kg) * Maintenance dose: 1250 mg IV (17 mg/kg) every 8 hours * Goal trough level for pneumonia: 15 to 20 mcg/mL * Troughm level ordered for 04/25/19 @ 1530 Cefepime * 2 g IV every 8 hours * Appropriate for Pneumonia and renal function Pharmacy will continue to follow and will adjust dose/frequency as necessary. Thank you.
[2019-04-24] MEDS ORDERED: CEFEPIME 2,000 MG in SYRINGE 7.5 ML IV SCH (21:00)
[2019-04-24] MEDS: HYDROCODONE/ACETAMOPHEN 5/325MG TAB PO PRN (21:17)
[2019-04-24 22:23] LABS: Partial Thromboplastin Ratio 1.5; Partial Thromboplastin Time 41.6 Seconds (21.0-31.0)
[2019-04-24] MEDS ORDERED: HEPARIN IV BOLUS 3,000 UNITS in SYRINGE 0 ML IV ONE (23:09)
[2019-04-25] MEDS: VANCOMYCIN HCL 1,250 MG in SODIUM CHLORIDE 0.9% 250 ML IV SCH ×4 (00:01→23:37)
[2019-04-25] MEDS ORDERED: ALBUT/IPRATROP 3MG/0.5MG NEB 3 ML VIAL NEB STA (00:22)
[2019-04-25] MEDS ORDERED: methylPREDNISolone 40 MG in SYRINGE 0 ML IV STA (00:22)
[2019-04-25] MEDS ORDERED: PIPERACILLIN/TAZOBACTAM 4.5 GM in DEXTROSE 5% 100 ML IV ONE (00:26)
[2019-04-25] MEDS ORDERED: PIPERACILL/TAZOBAC CONSULT ACTIVE PRN (00:26)
[2019-04-25] MEDS ORDERED: POTASSIUM CHLORIDE 20 MEQ TABCR PO STA (00:27)
--- NOTE | 2019-04-25 00:31 | Hospitalist Progress Note ---
Date of Service April 25, 2019 Assessment & Plan (1) Acute hypoxemic respiratory failure: Worsening hypoxemic respiratory failure Probable COPD exacerbation secondary to bilateral pneumonia Med telemetry transfer for closer monitoring continue supplemental O2, may need BiPAP pending ABG results Baseline ABG Solu-Medrol, nebs Continue Vancomycin given history MRSA pneumonia Zosyn in place of cefepime given possible aspiration concerns Swallow eval, aspiration precautions Pulmonary consult in a.m. RE respiratory failure/bilateral pneumonia Plan discussed with patient and . Total critical care time was 35 minutes. Subjective Made aware by RN of worsening hypoxemia and respiratory distress. O2 sats 85 to 90s on 7 L oxygen mask as per RN. Patient denies chest pain. Little more short of breath than usual. Patient admits to coughing with meals/water intake if not careful. Physical Exam Physical Exam: GENERAL: Slightly uncomfortable, minimal respiratory distress, unkempt SKIN: Pallor, warm HEENT: Pale palpebral conjunctivae, no ptosis, dry buccal mucosa, O2 mask in place NECK : Supple, no tenderness CHEST : Decreased breath sounds, bilateral rhonchi, no tenderness HEART : RRR, no obvious murmurs ABDOMEN: Soft, nontender EXTREMITIES : No LE swelling/tenderness, no other conspicuous deformities noted NEUROLOGIC : Coherent, no facial asymmetry, no other gross focality Results & Data Vital Signs (Past 12 Hours) Vital Signs Temp Pulse Pulse Resp BP BP Pulse Ox 04/25/19 00:17 68 27 H 90 04/24/19 23:53 36.7 C 80 18 123/74 86 L 04/24/19 20:14 18 92 04/24/19 19:20 36.8 C 68 18 125/78 90 04/24/19 19:01 67 18 94 04/24/19 19:00 62 20 111/76 95 04/24/19 18:31 63 22 93 04/24/19 18:30 63 22 117/81 93 04/24/19 18:01 65 23 92 04/24/19 18:00 66 22 114/73 91 04/24/19 17:30 65 20 94 04/24/19 17:01 73 21 95 04/24/19 17:00 66 14 96 04/24/19 16:30 61 23 97 04/24/19 16:01 63 22 92 04/24/19 16:00 65 18 99/61 L 93 04/24/19 15:31 62 20 106/70 97 04/24/19 15:30 60 21 98 04/24/19 15:12 64 21 88 L 04/24/19 14:32 69 20 109/71 90 04/24/19 13:21 67 22 106/71 91 04/24/19 13:03 76 22 101/71 93 04/24/19 12:36 94 Diagnostic Findings CXR as per my interpretation: Worsening bilateral pneumonia left greater than right
[2019-04-25] MEDS ORDERED: GLUCOSE 40% GEL 15 GM TUBE PO PRN (00:48)
[2019-04-25] MEDS ORDERED: DEXTROSE 50% 50 ML SYRINGE IV PRN (00:48)
[2019-04-25] MEDS ORDERED: CARBOHYDRATES FOR HYPOGLYCEMIA PO PRN (00:48)
[2019-04-25] MEDS ORDERED: INSULIN GLARGINE SOLOSTAR 100 UNITS/ML 3 ML PEN SC STA (00:48)
[2019-04-25] MEDS ORDERED: GLUCOSE 10 TABS/TUBE PO PRN (00:48)
[2019-04-25] MEDS ORDERED: GLUCAGON FOR INJ 1 MG VIAL SQ PRN (00:48)
[2019-04-25 01:00] LABS: Hematocrit (blood only) 26.9 % (42-52); Hemoglobin 8.9 g/dL (14.0-18.0); Mean Corpuscular Hemoglobin 29.4 pg (25-34); Mean Corpuscular Hgb Conc 33.1 g/dL (32-36); Mean Corpuscular Volume 88.8 fL (80-100); Mean Platelet Volume 9.8 fL (7.4-10.4); Platelet Count 195 K/uL (130-400); RDW Coefficient of Variation 13.2 % (11.5-14.5); Red Blood Count 3.03 M/uL (4.7-6.1); White Blood Count 2.17 K/uL (4.8-10.8)
[2019-04-25 01:05] LABS: Base Excess ABG -1.4 mEq/L (-9-1.8); HCO3 ABG 22 mmol/L (19-24); Oxygen Saturation ABG 89.2 % (90-95); PCO2 ABG 33 mmHg (35-46); PO2 ABG 58 mm/Hg (80-95); pH ABG 7.45 (7.35-7.45)
[2019-04-25 01:06] LABS: Allen Test Pos (Pos)
[2019-04-25] MEDS: NICOTINE 21 MG/24 HR TDSY TD SCH ×2 (01:10→08:38)
[2019-04-25 01:19] LABS: Alanine Aminotransferase 10 U/L (12-78); Albumin Level 1.8 gm/dl (3.4-5.0); Aspartate Aminotransferase 10 U/L (15-37); BUN Creatinine Ratio 20.5 (10-20); Bilirubin Direct < 0.1 mg/dl (0-0.2); Blood Urea Nitrogen 14 mg/dl (7-18); Calcium 7.7 mg/dl (8.5-10.1); Carbon Dioxide 23 mmol/L (21-32); Chloride 111 mmol/L (98-107); Creatinine Clr Calc Pharmacy 126.4 ml/min; Est GFR (African American) 124.7; Est GFR (Non-African American) 107.6; Glucose 111 mg/dl (70-99); Magnesium 1.8 mg/dl (1.8-2.4); Potassium 3.6 mmol/L (3.5-5.1); Sodium 140 mmol/L (136-145)
[2019-04-25] MEDS: IPRATROPIUM BROMIDE NEB SOLN 0.02% 2.5 ML VIAL INH SCH ×4 (01:20→19:13)
[2019-04-25] MEDS: LEVALBUTEROL 1.25MG/0.5ML NEB INH SCH ×4 (01:21→19:13)
[2019-04-25 01:23] LABS: INR 1.1 (0.9-1.1); Partial Thromboplastin Ratio 2.5; Prothrombin Time 11.5 Seconds (9.0-12.0)
[2019-04-25 01:25] LABS: Basophils # (auto) 0.05 K/uL (0-0.2); Basophils % (auto) 2.3 %; Giant Platelets 1+; Immature Granulocytes % (auto) 9.2 %; Lymphocytes # (auto) 1.03 K/uL (1.2-3.4); Lymphocytes % (auto) 47.5 %; Monocytes # (auto) 0.87 K/uL (0.11-0.59); Monocytes % (auto) 40.1 %; Neutrophils # (auto) 0.02 K/uL (1.4-6.5); Neutrophils % (auto) 0.9 %; Partial Thromboplastin Time 67.8 Seconds (21.0-31.0)
[2019-04-25 01:26] LABS: Alkaline Phosphatase 69 U/L (45-117); Bilirubin,Total 0.3 mg/dl (0.2-1); Total Protein 5.1 gm/dl (6.4-8.2)
[2019-04-25] MEDS: INSULIN ASPART 100 UNITS/ML 3 ML PEN SC SCH ×5 (01:37→20:28)
[2019-04-25] MEDS: MAGNESIUM SULFATE / D5W 1 GM/100 ML BAG IV SCH ×2 (01:43→02:47)
[2019-04-25] MEDS ORDERED: LACTATED RINGER'S 1,000 ML IV ONE (04:34)
[2019-04-25] MEDS: PIPERACILLIN/TAZOBACTAM 3.375 GM in DEXTROSE 5% 100 ML IV SCH ×3 (05:45→21:04)
--- NOTE | 2019-04-25 06:43 | XRay Report ---
XR chest 1V portable CLINICAL HISTORY: Shortness of breath COMPARISON STUDY: April 24, 2019 FINDINGS: The heart remains normal in size. There are diffuse bilateral coarse pulmonary airspace op[place] cities left greater than right similar to the preceding study. A multifocal pneumonia is favored over asymmetric edema. A trace right pleural effusion is suspected. No pneumothorax is visualized. Underl mike emphysema is suspected.[ IMPRESSION: 1. Persistent bilateral pulmonary airspace opacities left greater than right 2. Suspected trace right pleural effusion Electronically signed by: Rosalio Bergeron M.D. 04/25/2019 6:42 AM
[2019-04-25 06:52] LABS: Partial Thromboplastin Ratio 1.6; Partial Thromboplastin Time 43.8 Seconds (21.0-31.0)
[2019-04-25] MEDS ORDERED: XOPENEX/ATROVENT 1.25mg/0.5MG NEB COMBO NEB SCH (07:00)
[2019-04-25 07:10] LABS: Influenza A virus by PCR Neg for Influ A (Neg); Influenza B virus by PCR Neg for Influ B (Neg)
[2019-04-25] MEDS ORDERED: HEPARIN IV BOLUS 3,000 UNITS in SYRINGE 0 ML IV STA (07:21)
[2019-04-25] MEDS: LIDOCAINE 5% 1 PATCH TD SCH (08:37)
[2019-04-25] MEDS: LACTOBACILLUS ACIDOPHILUS (FLORANEX) TAB PO SCH (08:39)
[2019-04-25] MEDS: LORATADINE 10 MG TAB PO SCH (08:40)
[2019-04-25] MEDS: PANTOprazole 40 MG TAB PO SCH (08:40)
[2019-04-25] MEDS: HYDROCODONE/ACETAMOPHEN 5/325MG TAB PO PRN (08:47)
[2019-04-25] MEDS: methylPREDNISolone 40 MG in SYRINGE 0 ML IV SCH (09:14)
[2019-04-25] MEDS ORDERED: NICOTINE 21 MG/24 HR TDSY TD ONE (09:15)
--- NOTE | 2019-04-25 09:15 | Infectious Disease Consult ---
Date of Consultation April 25, 2019 Assessment & Plan (1) Pneumonia: 53-year-old male under treatment for MRSA sepsis and pneumonia, now readmitted with fevers, neutropenia, possibly worsening infiltrates, and extensive DVT of the left upper extremity. Given neutropenia, possibly due to prior ceftaroline therapy, agree with change to combination of vancomycin and Zosyn pending further culture results. Would repeat echocardiogram to evaluate for possibility of endocarditis. Will discuss with all involved. Will follow. (2) Neutropenic: (3) DVT (deep venous thrombosis): History of Present Illness Reason for Consultation: MRSA Attending Physician: Marcos Murillo MD History of Present Illness 53-year-old male with history of COPD, GERD, chronic back pain status post back surgery, admitted last month with MRSA sepsis and pneumonia, treated with IV ceftaroline and discharged home for a 6-week course of therapy. Was nearing completion of planned course of treatment, but then developed over the last day or 2 significant swelling of his left upper extremity, along with low-grade fever, and evidence of worsening hypoxia. Came to the emergency department where he was found to have extensive DVT involving his left upper extremity around the site of his PICC line, now removed, with chest CT showing somewhat progressing infiltrates. Also found to be significantly neutropenic, not seen during his last admission. Has been started empirically on vancomycin and Zosyn. Cultures are pending. No evidence of pulmonary embolus on CT scan of the chest. Had transthoracic echocardiogram last visit which showed no obvious valvular disease. Cavitary lesion seen during last admission has improved. Allergies Allergy/AdvReac Type Severity Reaction Status Date / Time cortisone Allergy Severe DROPPED Verified 04/24/19 14:43 B/P, PASSED OUT, BURNING SENSATION AT SITE. pollen extracts Allergy Intermediate SNEEZING, Verified 04/24/19 14:43 CONGESTION, COUGH. Iodinated Contrast Media AdvReac Intermediate GI Verified 04/24/19 14:43 SYMPTOMS--N/V Home Medications Home Medications Medication Instructions Recorded Confirmed Type dicyclomine 10 mg PO QID PRN 05/16/18 04/24/19 History loratadine 10 mg PO DAILY 05/16/18 04/24/19 History omeprazole 40 mg PO DAILY 05/16/18 04/24/19 History acetaminophen [Tylenol Extra 1,000 mg PO QID PRN 10/04/18 04/24/19 History Strength] naproxen sodium [Aleve] 220 mg PO BID PRN 10/04/18 04/24/19 History ceftaroline fosamil 600 mg IV Q12H 42 Days #84 ea 03/15/19 04/24/19 Rx hydrocodone-acetaminophen [[place]] 1 tab PO Q8 PRN #6 tab 03/16/19 04/24/19 Rx lactobacillus combination no.4 3,000 mmu cells PO DAILY #60 cap 03/16/19 04/24/19 Rx [Probiotic] ibuprofen 800 mg PO TID PRN 04/24/19 04/24/19 History lidocaine 1 patch TRANSDERMAL DAILY 04/24/19 04/24/19 History Patient History Medical History Cellulitis of face (Acute) Chest pain (Acute) Chronic lumbar pain (Chronic) COPD (chronic obstructive pulmonary disease) (Acute) Dyspnea (Acute) GERD (gastroesophageal reflux disease) (Chronic) Gram positive sepsis HTN (hypertension) Pneumonia (Acute) Sepsis Surgical History History of back surgery (Resolved) Family History Other No significant family history Social History Preferred Language: Persian Communication Ability: Effective Bedspread Inspector Required: No Beliefs That Will Affect Care: None marital status: Current Living Situation: Spouse current occupational status: unemployed and disabled Other Information That Helps Us Care for You: No Feels Safe at Home: Yes Safety Concerns: Feels Safe At This Time Smoking Status: Current every day smoker Tobacco Type: cigarettes ; Cigarettes Per Day: 30 ; Hx Alcohol Use: No Hx Substance Use: No Review of Systems Constitutional: + fever, + fatigue and + weakness Eyes: no problem reported Ear, Nose, Mouth, Throat: no problem reported Respiratory: as per Subjective / HPI Cardiovascular: + chest pain Gastrointestinal: no problem reported Genitourinary: no problem reported Musculoskeletal: + problem reported (Chronic back pain) Integumentary: no problem reported Neurologic: no problem reported Psychiatric: no problem reported Endocrine: no problem reported Hematologic / Lymphatic: no problem reported Allergy / Immunological: no problem reported Physical Exam Constitutional: WD/WN, vitals as above + ill appearing and + disheveled; no acute distress Eyes: PERRL, conjunctivae normal, anicteric sclerae ENMT: external ear and nose normal, oropharynx normal Neck: trachea midline, no thyromegaly neck nontender Respiratory: normal respiratory effort, lungs clear to auscultation normal percussion; does not use accessory muscles Cardiovascular: Rate/Rhythm: regular rate and regular rhythm Heart Sounds: normal S1 and normal S2; no gallop, no murmur and no cardiac rub Vessels: normal peripheral pulses; no JVD Gastrointestinal (Abdomen): normal bowel sounds, soft, nontender, no hepatosplenomegaly Musculoskeletal: no cyanosis or clubbing, extremities motor strength 5/5 Spine: thoracic spine normal to inspection and lumbar spine normal to inspection; no cervical spinal tenderness Extremities: + upper extremity abnormal to inspection (Significant left upper extremity swelling) Skin: no rashes, warm and dry normal turgor; no lesions Neurologic: patellar DTR's 2+ bilat, sensation intact no focal motor deficits Psychiatric: A+Ox3, euthymic affect Orientation: cooperative Lymphatic: no cervical or axillary lymphadenopathy no inguinal lymphadenopathy Results & Data Vital Signs (Past 12 Hours) Vital Signs Temp Pulse Pulse Resp BP Pulse Ox 04/25/19 07:53 61 04/25/19 07:34 36.8 C 65 18 103/65 04/25/19 06:57 63 18 93 04/25/19 05:48 94 04/25/19 05:22 96 04/25/19 04:26 36.9 C 66 26 H 100/60 89 L 04/25/19 02:56 92 04/25/19 00:53 71 16 86 L 04/25/19 00:17 68 27 H 90 04/24/19 23:53 36.7 C 80 18 123/74 86 L Laboratory Results Short CBC 04/24/19 04/25/19 Range/Units 11:52 00:51 WBC 2.25 L 2.17 L (4.8-10.8) K/uL Hgb 10.7 L 8.9 L (14.0-18.0) g/dL Hct 32.9 L 26.9 L (42-52) % Plt Count 243 195 (130-400) K/uL BMP 04/24/19 04/25/19 11:52 00:51 Sodium 139 140 Potassium 3.5 3.6 Chloride 110 H 111 H Carbon Dioxide 21 23 BUN 18 14 Creatinine 0.91 0.69 Glucose 136 H 111 H Calcium 8.8 7.7 L Liver Function 04/24/19 04/25/19 Range/Units 11:52 00:51 Total Bilirubin 0.4 0.3 (0.2-1) mg/dl Direct Bilirubin < 0.1 (0-0.2) mg/dl AST 12 L 10 L (15-37) U/L ALT 11 L 10 L (12-78) U/L Alkaline Phosphatase 86 69 (45-117) U/L Albumin 2.3 L 1.8 L (3.4-5.0) gm/dl Diagnostic Findings CT angio chest PE protocol CT DOSE: 379.58 mGycm HISTORY: Chest pain +dd and cp TECHNIQUE: Multiaxial CT images of the chest were performed following the intravenous administration of contrast to evaluate the pulmonary arteries. Maximal intensity projection images were also obtained. A dose lowering technique was utilized adhering to the principles of ALARA. COMPARISON STUDY: 03/14/2019 FINDINGS: Mild atelectatic change and ectasia of the thoracic aorta. Pulmonary vasculature enhances appropriately. There are no significant filling defects. Hilar or mediastinal adenopathy is stable. There are progressive alveolar type infiltrates in the left and to a lesser extent right base. Interval decrease in volume of bilateral pleural effusions. Improved cavitary lesion peripheral aspect left mid lung as well as anterior to the right hilum. There is mild residual. Slight interstitial prominence throughout both upper lungs. IMPRESSION: 1. No evidence for pulmonary embolus. 2. Improved bilateral pleural effusions. 3. Progressive alveolar infiltrative changes of the lower lobes bilaterally. 4. Interval improvement in the peripheral infiltrative changes of the mid to upper lungs. The above report was generated using voice recognition software. It may contain grammatical, syntax or spelling errors. Electronically signed by: Marco A Oshea M.D. 04/24/2019 3:19 PM Dictated: 04/24/19 1514 Transcribed: 04/24/19 1514 cc: ~ LEFT UPPER EXTREMITY VENOUS DOPPLER ULTRASOUND CLINICAL HISTORY: Left upper extremity swelling. COMPARISON STUDY: No previous studies for comparison. FINDINGS: Left PICC is in place. There is extensive thrombus within the left subclavian, axillary, brachial, cephalic and basilic veins. IMPRESSION: Extensive venous thrombus within the left upper extremity, adjacent to the left PICC. Electronically signed by: Harshal Arteaga M.D. 04/24/2019 2:36 PM PG Care Time/CCT Total # of Minutes Spent Total Time Spent with Patient: Total time spent is greater than 50% in coordination of care (as documented) at patient's floor/unit and/or counseling patient: (1) Pneumonia Laterality: bilateral Lung location: unspecified part of lung Pneumonia type: due to unspecified organism Qualified Code(s): J18.9 - Pneumonia, unspecified organism (2) Neutropenic Neutropenia type: unspecified Qualified Code(s): D70.9 - Neutropenia, unspecified (3) DVT (deep venous thrombosis) Affected thrombotic vein of extremity: unspecified vein of extremity Chronicity: unspecified DVT location: upper extremity Laterality: unspecified laterality Qualified Code(s): I82.629 - Acute embolism and thrombosis of deep veins of unspecified upper extremity
--- NOTE | 2019-04-25 10:10 | Pulmonary Consultation ---
Date of Consultation April 25, 2019 Assessment & Plan (1) MRSA pneumonia: Patient originally admitted 03/09/2019 Discharged on ceftaroline Presented with left upper extremity DVT CT scan this admission compared to outside CT scan 04/12/2019 * Primary pneumonia looks to be improving * Bibasilar infiltrates are worse. Will plan on bronchoscopy tomorrow for BAL In the meantime, continue abx tx per infectious disease recommendations (2) Leukopenia: Unclear etiology May be secondary to ceftaroline Continue to monitor serial labs (3) DVT (deep venous thrombosis): Left upper extremity secondary to PICC line Discussed with patient and reminded him that this is 1 of the risk with an indwelling catheter Patient currently on heparin drip We will need to hold heparin drip 4 hours prior to bronchoscopy tomorrow Further management per hospitalist team Affected thrombotic vein of extremity: unspecified vein of extremity Chronicity: unspecified DVT location: upper extremity Laterality: unspecified laterality Qualified Code(s): I82.629 - Acute embolism and thrombosis of deep veins of unspecified upper extremity (4) COPD (chronic obstructive pulmonary disease): Chronic tobacco abuser with every day cigarette use No PFTs are available COPD type: unspecified COPD Qualified Code(s): J44.9 - Chronic obstructive pulmonary disease, unspecified Supervising Physician Co-Signing Physician Notes Patient seen and examined. EMR reviewed. Discussed with patient family at bedside as well as with MARY. 53-year-old male with prior admission for MRSA pneumonia. He CT scan showed initial improvement but now he has bilateral lower lobe reticular opacification with some small pleural effusions. Recommend continued broad-spectrum antibiotics. Will need bronchoscopy with BAL which has been scheduled for tomorrow morning tentatively. N.p.o. after midnight. Hold heparin 4 hours prior to procedure. Additional recommendations will be based on bronchoscopy results. Smoking cessation recommended. May consider serological evaluation although the rapid development would argue against occupational or environmental interstitial lung disease. Will need 3 months anticoagulation for upper extremity DVT associated with PICC line. Unclear if neutropenia is related to ceftaroline. Ceftaroline has been associated with eosinophilic pneumonia with pulmonary infiltrates. Await BAL cell count differential prior to initiation of steroids. History of Present Illness Attending Physician: Marcos Murillo MD History of Present Illness Attending: Dr. Tuttle This is a 53-year-old male that presents with worsening pneumonia. Is a past medical history including COPD, ongoing tobacco abuse, recent MRSA pneumonia, GERD, disability secondary to chronic back pain since 2000, mood disorder, chronic anemia. He follows with Dr. Jo-Ann Stokes. He was previously admitted 03/09/2019 and found to have MRSA pneumonia. He was started on vancomycin but the ZAC was elevated. Daptomycin was not used due to MRSA. Patient was started on ceftaroline and discharged with plans to have 3 weeks of IV antibiotics from the first negative blood culture. A PICC line was placed in the left upper extremity. Patient developed tenderness and soreness and found to have DVT and was admitted. Chest x-ray shows worsening pneumonia. Patient did have a CT scan of the chest with contrast at [facility] 04/12/2019. I requested the images to be pushed into PACS and expect those available for review this morning. Patient currently is on a heparin drip, vancomycin, and Zosyn. Patient denies any fever but does state that he has had sweats and some chills. He has a nonproductive cough. He denies any hemoptysis. He does report left back pain with pleuritic type pain. CT scan was negative for pulmonary embolus. Bilateral pleural effusions are improved from prior. There is progressive alveolar infiltrative change of the lower lobes bilaterally. Patient has no nausea or vomiting. He denies diarrhea. No lower extremity swelling. No recent travel. He has no other acute complaints. Multiple blood cultures: Positive for staph aureus MRSA on 03/09/19 , 03/10/2019, 03/12/2019 Last set of blood culture drawn on 03/14/2019: No growth Sputum culture 03/13/2019: Positive for Staphylococcus aureus Transthoracic echo with no evidence of vegetation on the valves Was discharged on ceftaroline 600 mg IV twice daily for total 6 weeks via PICC line in left upper extremity. Allergies Allergy/AdvReac Type Severity Reaction Status Date / Time cortisone Allergy Severe DROPPED Verified 04/24/19 14:43 B/P, PASSED OUT, BURNING SENSATION AT SITE. pollen extracts Allergy Intermediate SNEEZING, Verified 04/24/19 14:43 CONGESTION, COUGH. Iodinated Contrast Media AdvReac Intermediate GI Verified 04/24/19 14:43 SYMPTOMS--N/V Home Medications Home Medications Medication Instructions Recorded Confirmed Type dicyclomine 10 mg PO QID PRN 05/16/18 04/24/19 History loratadine 10 mg PO DAILY 05/16/18 04/24/19 History omeprazole 40 mg PO DAILY 05/16/18 04/24/19 History acetaminophen [Tylenol Extra 1,000 mg PO QID PRN 10/04/18 04/24/19 History Strength] naproxen sodium [Aleve] 220 mg PO BID PRN 10/04/18 04/24/19 History ceftaroline fosamil 600 mg IV Q12H 42 Days #84 ea 03/15/19 04/24/19 Rx hydrocodone-acetaminophen [[place]] 1 tab PO Q8 PRN #6 tab 03/16/19 04/24/19 Rx lactobacillus combination no.4 3,000 mmu cells PO DAILY #60 cap 03/16/19 04/24/19 Rx [Probiotic] ibuprofen 800 mg PO TID PRN 04/24/19 04/24/19 History lidocaine 1 patch TRANSDERMAL DAILY 04/24/19 04/24/19 History Patient History Medical History (Updated 04/25/19 @ 10:51 by Spenser Camp PA-C) Cellulitis of face (Resolved) Chest pain (Resolved) Chronic lumbar pain (Chronic) COPD (chronic obstructive pulmonary disease) (Acute) Dyspnea (Acute) GERD (gastroesophageal reflux disease) (Chronic) Gram positive sepsis HTN (hypertension) MRSA bacteremia MRSA pneumonia Sepsis Surgical History History of back surgery (Resolved) Family History Other No significant family history Social History Preferred Language: Estonian Communication Ability: Effective Pricing Intern Required: No Beliefs That Will Affect Care: None marital status: Current Living Situation: Spouse current occupational status: unemployed and disabled Feels Safe at Home: Yes Smoking Status: Current every day smoker Tobacco Type: cigarettes ; Cigarettes Per Day: 30 ; Hx Alcohol Use: No Hx Substance Use: No Review of Systems Review of Systems: All systems reviewed & are unremarkable except as noted in HPI & below Physical Exam Physical Exam: GENERAL : No acute distress. EYES: No icterus, gaze conjugate. Pupils equal round reactive to light NOSE: No evidence of epistaxis. Nasal cannula in place MOUTH: No lesions or candidiasis. NECK: Supple. No stridor LUNGS: Patient with coarse rales at the bases. He does not have any specific bronchospasm. No overt rhonchi. HEART: Regular, rate controlled ABDOMEN: Soft, NT, ND, BS Present EXTREMITIES: No LE edema, pedal pulses intact NEURO: A&OX3 Results & Data Vital Signs (Past 12 Hours) Vital Signs Temp Pulse Pulse Resp BP Pulse Ox 04/25/19 07:53 61 04/25/19 07:34 36.8 C 65 18 103/65 04/25/19 06:57 63 18 93 04/25/19 05:48 94 04/25/19 05:22 96 04/25/19 04:26 36.9 C 66 26 H 100/60 89 L 04/25/19 02:56 92 04/25/19 00:53 71 16 86 L 04/25/19 00:17 68 27 H 90 04/24/19 23:53 36.7 C 80 18 123/74 86 L Laboratory Results 04/25/19 00:51 04/25/19 00:51 Diagnostic Findings XR chest 1V portable 04/25/2019 CLINICAL HISTORY: Shortness of breath COMPARISON STUDY: April 24, 2019 FINDINGS: The heart remains normal in size. There are diffuse bilateral coarse pulmonary airspace opacities left greater than right similar to the preceding study. A multifocal pneumonia is favored over asymmetric edema. A trace right pleural effusion is suspected. No pneumothorax is visualized. Underlying emphysema is suspected.[ IMPRESSION: 1. Persistent bilateral pulmonary airspace opacities left greater than right 2. Suspected trace right pleural effusion Electronically signed by: Rosalio Bergeron M.D. 04/25/2019 6:[address] angio chest PE protocol 04/24/2019 CT DOSE: 379.58 mGycm HISTORY: Chest pain +dd and cp TECHNIQUE: Multiaxial CT images of the chest were performed following the intravenous administration of contrast to evaluate the pulmonary arteries. Maximal intensity projection images were also obtained. A dose lowering technique was utilized adhering to the principles of ALARA. COMPARISON STUDY: 03/14/2019 FINDINGS: Mild atelectatic change and ectasia of the thoracic aorta. Pulmonary vasculature enhances appropriately. There are no significant filling defects. Hilar or mediastinal adenopathy is stable. There are progressive alveolar type infiltrates in the left and to a lesser extent right base. Interval decrease in volume of bilateral pleural effusions. Improved cavitary lesion peripheral aspect left mid lung as well as anterior to the right hilum. There is mild residual. Slight interstitial prominence throughout both upper lungs. IMPRESSION: 1. No evidence for pulmonary embolus. 2. Improved bilateral pleural effusions. 3. Progressive alveolar infiltrative changes of the lower lobes bilaterally. 4. Interval improvement in the peripheral infiltrative changes of the mid to upper lungs. Electronically signed by: Marco A Oshea M.D. 04/24/2019 3:19 PM PG Care Time/CCT Total # of Minutes Spent Total Time Spent with Patient: Total time spent is greater than 50% in coordination of care (as documented) at patient's floor/unit and/or counseling patient: 50 minutes
[2019-04-25] MEDS: HEPARIN SODIUM/DEXTROSE 25,000 UNITS/500 ML BAG IV SCH (11:20)
[2019-04-25] MEDS ORDERED: VANCOMYCIN TROUGH SCH (15:30)
[2019-04-25 15:46] LABS: Partial Thromboplastin Ratio 2.1
[2019-04-25 15:48] LABS: Partial Thromboplastin Time 55.7 Seconds (21.0-31.0)
--- NOTE | 2019-04-25 17:21 | Hospitalist Progress Note ---
Date of Service April 25, 2019 Assessment & Plan (1) Acute hypoxemic respiratory failure: History of COPD with recent MRSA pneumonia Finished antibiotic as as prescribed Admitted with the acute shortness of breath and the condition got worse overnight CT of the chest did show bilateral lower lobe infiltration Appreciate pulmonary input and recommendation Will have bronchoscopy tomorrow Present on Admission?: Yes (2) COPD (chronic obstructive pulmonary disease): Has been getting intravenous antibiotic Intravenous Solu-Medrol Nebulized bronchodilator Clinically improving (3) Worsening pneumonia: As above Has been on Zosyn and vancomycin Blood cultures have been negative Await bronchoscopy before changing antibiotic (4) DVT (deep venous thrombosis): Left upper extremity acute DVT Status post removal of PICC line Has been on anticoagulation for that (5) HTN (hypertension): Blood pressure seems to be under control (6) Chronic lumbar pain: Has been taking Percocet 5/325 1 tablet every 6 hourly for chronic back pain [place] has been changed to Percocet Subjective 04/25 The patient was seen and examined in medical floor He is a 53-year-old male with past medical history of MRSA pneumonia recently discharged on March 16, neutropenia, hypertension, gram-positive sepsis, chin cellulitis, COPD, GERD, chronic back pain, turns with shortness of breath and left upper extremity swelling. Noted to be more shortness of breath at night and requiring more oxygen Started on intravenous Solu-Medrol Has been feeling much better this morning Review of Systems Review of Systems: All systems reviewed and are unremarkable except as noted below Physical Exam Physical Exam: Lying in bed with moderate shortness of breath at rest Constitutional: well developed, well nourished, + acute distress (With shortness of breath), + ill appearing and + obese Eyes: PERRL, conjunctivae normal, anicteric sclerae ENMT: external ear and nose normal, oropharynx normal Neck: trachea midline, no thyromegaly Respiratory: + respiratory distress (Moderate shortness of breath at rest) Auscultation: + diminished lung sounds and + crackles (Bilaterally at the bases) Cardiovascular: Rate/Rhythm: regular rate and regular rhythm Heart Sounds: no murmur Gastrointestinal (Abdomen): Inspection/Auscultation: abdomen normal to inspection and normal bowel sounds Percussion/Palpation: abdomen soft; abdomen nontender Musculoskeletal: Left upper extremity swelling Neurologic: Alert, awake and oriented x3 Lymphatic: no cervical or axillary lymphadenopathy Results & Data Vital Signs (Past 12 Hours) Vital Signs Temp Pulse Pulse Resp BP BP Pulse Ox 04/25/19 15:18 36.3 C L 76 18 119/73 91 04/25/19 13:59 64 20 04/25/19 12:00 36.9 C 58 L 18 109/63 91 04/25/19 11:00 36.9 C 58 L 18 109/63 91 04/25/19 07:53 61 04/25/19 07:34 36.8 C 65 18 103/65 04/25/19 06:57 63 18 93 04/25/19 05:48 94 04/25/19 05:22 96 Laboratory Results Short CBC 04/25/19 Range/Units 00:51 WBC 2.17 L (4.8-10.8) K/uL Hgb 8.9 L (14.0-18.0) g/dL Hct 26.9 L (42-52) % Plt Count 195 (130-400) K/uL BMP 04/25/19 00:51 Sodium 140 Potassium 3.6 Chloride 111 H Carbon Dioxide 23 BUN 14 Creatinine 0.69 Glucose 111 H Calcium 7.7 L Liver Function 04/25/19 Range/Units 00:51 Total Bilirubin 0.3 (0.2-1) mg/dl Direct Bilirubin < 0.1 (0-0.2) mg/dl AST 10 L (15-37) U/L ALT 10 L (12-78) U/L Alkaline Phosphatase 69 (45-117) U/L Albumin 1.8 L (3.4-5.0) gm/dl Medications Administered Current Inpatient Medications Acetaminophen (Tylenol) 1,000 mg PO QID PRN PRN Reason: Pain Stop: 05/24/19 19:32 Al Hydrox/Mg Hydrox/Simethicone (Maalox) 30 ml PO Q6H PRN PRN Reason: Dyspepsia Stop: 05/24/19 19:32 Dextrose (Dextrose 50%) 25 - 50 ml IV UD PRN; Protocol PRN Reason: Hypoglycemia Protocol Stop: 05/25/19 00:47 Dicyclomine HCl (Bentyl) 10 mg PO QID PRN PRN Reason: ABD PAIN Stop: 05/24/19 19:32 Last Admin: 04/25/19 08:39 Dose: 10 mg Documented by: Glucagon (Glucagen) 1 mg SQ UD PRN; Protocol PRN Reason: Hypoglycemia Protocol Stop: 05/25/19 00:47 Glucose (Dex4 Glucose) 4 - 8 tabs PO UD PRN; Protocol PRN Reason: Hypoglycemia Protocol Stop: 05/25/19 00:47 Glucose (Glucose 40%) 15 - 30 gm PO UD PRN; Protocol PRN Reason: Hypoglycemia Protocol Stop: 05/25/19 00:47 Heparin Sodium/Dextrose (Heparin Sodium/Dextrose) 25,000 units in 500 mls @ 32 mls/hr IV .[id number] NEW; Protocol Stop: 05/24/19 15:44 Last Titration: 04/25/19 16:00 Dose: 1,600 units/hr, 32 mls/hr Documented by: Vancomycin HCl 1,250 mg/ (Sodium Chloride) 275 mls @ 125 mls/hr IV Q8H NEW; Protocol Stop: 05/02/19 00:00 Last Infusion: 04/25/19 15:54 Dose: 125 mls/hr Documented by: Methylprednisolone 40 mg/ (Syringe) 0.64 mls @ 1.5 mls/min IV DAILY NEW Stop: 05/25/19 08:59 Last Admin: 04/25/19 09:14 Dose: 1.5 mls/min Documented by: Piperacillin Sod/Tazobactam (Sod 3.375 gm/ Dextrose) 115 mls @ 28.75 mls/hr IV Q8H NEW; Protocol Stop: 05/02/19 05:59 Last Admin: 04/25/19 14:17 Dose: 28.8 mls/hr Documented by: Lactated Ringer's (Lr) 1,000 mls @ 60 mls/hr IV .[id number] ONE Stop: 04/25/19 21:13 Last Admin: 04/25/19 04:47 Dose: 60 mls/hr Documented by: Insulin Aspart (Novolog Flexpen) 0 units SC ACHS NEW Stop: 05/25/19 00:49 Last Admin: 04/25/19 12:15 Dose: 4 units Documented by: Insulin Glargine (Lantus Solostar Pen) 5 units SQ DAILY NEW Stop: 05/26/19 08:59 Ioversol (Optiray 320 125ml) 115 ml IV ONCE PRN PRN Reason: Interaction Checking Stop: 04/28/19 15:10 Last Admin: 04/24/19 15:12 Dose: 115 ml Documented by: Ipratropium [place] (Atrovent 0.02% 0.5mg/2.5ml) 0.5 mg INH Q6R [facility] Stop: 05/25/19 00:59 Last Admin: 04/25/19 13:59 Dose: 0.5 mg Documented by: Lactobacillus Acidophilus (Floranex) 4 tab PO DAILY NEW Stop: 05/25/19 08:59 Last Admin: 04/25/19 08:39 Dose: 4 tab Documented by: Levalbuterol HCl (Xopenex 1.25mg/0.5ml Neb) 1.25 mg INH Q6R [facility] Stop: 05/25/19 00:59 Last Admin: 04/25/19 13:59 Dose: 1.25 mg Documented by: Lidocaine (Lidoderm 5%) 1 patch TD DAILY NEW Stop: 05/25/19 08:59 Last Admin: 04/25/19 08:37 Dose: 1 patch Documented by: Loratadine (Claritin) 10 mg PO DAILY [facility] Stop: 05/25/19 08:59 Last Admin: 04/25/19 08:40 Dose: 10 mg Documented by: Miscellaneous (Remove Lidoderm Patch) 1 ea N/A DAILY@2100 [facility] Stop: 05/24/19 20:59 Last Admin: 04/24/19 21:20 Dose: Not Given Documented by: Miscellaneous (Remove Nicoderm Patch) 1 ea N/A DAILY@0859 [facility] Stop: 05/25/19 08:58 Last Admin: 04/25/19 08:40 Dose: 1 ea Documented by: Miscellaneous (Carbohydrates For Hypoglycemia) 15 - 30 gm PO UD PRN PRN Reason: Hypoglycemia Protocol Stop: 05/25/19 00:47 Miscellaneous Information (Consult) 1 ea N/A UD PRN PRN Reason: Consult Stop: 05/24/19 15:35 Miscellaneous Information (Consult) 1 ea N/A UD PRN PRN Reason: Consult Stop: 05/25/19 00:25 Naproxen (Naprosyn) 250 mg PO BID PRN PRN Reason: Pain Stop: 05/24/19 20:13 Nicotine (Nicoderm Cq) 21 mg TD QAM [facility] Stop: 05/25/19 00:34 Last Admin: 04/25/19 08:38 Dose: 21 mg Documented by: Ondansetron HCl (Zofran) 4 mg IV Q6H PRN PRN Reason: Nausea Stop: 05/24/19 19:32 Oxycodone/Acetaminophen (Percocet 5mg/325mg) 1 tab PO Q6H PRN PRN Reason: Pain Stop: 05/09/19 17:05 Pantoprazole Sodium (Protonix) 40 mg PO DAILY [facility] Stop: 05/25/19 08:59 Last Admin: 04/25/19 08:40 Dose: 40 mg Documented by: (1) DVT (deep venous thrombosis) Affected thrombotic vein of extremity: unspecified vein of extremity Chronicity: unspecified DVT location: upper extremity Laterality: unspecified laterality Qualified Code(s): I82.629 - Acute embolism and thrombosis of deep veins of unspecified upper extremity (2) COPD (chronic obstructive pulmonary disease) COPD type: unspecified COPD Qualified Code(s): J44.9 - Chronic obstructive pulmonary disease, unspecified (3) Chronic lumbar pain Back pain laterality: left Sciatica presence: unspecified whether sciatica present Qualified Code(s): M54.5 - Low back pain; G89.29 - Other chronic pain
[2019-04-25] MEDS: OXYCODONE/ACETAMINOPHEN 5mg/325mg TAB PO PRN (17:28)
[2019-04-26] MEDS: IPRATROPIUM BROMIDE NEB SOLN 0.02% 2.5 ML VIAL INH SCH ×4 (01:19→19:07)
[2019-04-26] MEDS: LEVALBUTEROL 1.25MG/0.5ML NEB INH SCH ×4 (01:20→19:07)
[2019-04-26] MEDS ORDERED: HOLD HEPARIN DRIP SCH (03:00)
[2019-04-26] MEDS: PIPERACILLIN/TAZOBACTAM 3.375 GM in DEXTROSE 5% 100 ML IV SCH ×3 (05:46→21:59)
--- NOTE | 2019-04-26 08:04 | Pre Anesthesia Assessment ---
Date of Service April 26, 2019 Pre Sedation Assessment Vital Signs Temp Pulse Pulse Resp BP BP Pulse Ox 04/26/19 07:41 72 04/26/19 07:11 37.1 C 74 20 120/78 92 04/26/19 07:08 77 16 91 04/26/19 04:00 36.7 C 73 20 112/67 92 04/26/19 00:47 68 04/25/19 23:00 36.5 C 73 20 100/61 95 04/25/19 19:15 64 18 96 04/25/19 18:57 36.6 C 68 20 96/61 L 90 04/25/19 16:56 72 04/25/19 15:18 36.3 C L 76 18 119/73 91 04/25/19 13:59 64 20 04/25/19 12:00 36.9 C 58 L 18 109/63 91 04/25/19 11:00 36.9 C 58 L 18 109/63 91 Pre-Sedation Airway Assessment Smoking Status: Current every day smoker Hx Sleep Apnea: Yes Short, Thick Neck: No Thyromental Distance: > or= 3.5 Finger Breadths Oral Cavity: + Dentures ASA: ASA2 NPO Status Date of Last Intake of Fluids: 04/26/19 Time of Last Intake of Fluids: 00:00 Last Oral Intake of Fluids Comment: atleast since midnight Date of Last Intake of Solid Food: 04/26/19 Time of Last Intake of Solid Foods: 00:00 Last Intake of Solids Comment: atleast since midnight Notes The planned sedation has been discussed with the patient. Informed Consent was obtained. I have identified the patient, determined the appropriateness of sedation and have assessed the patient immediately prior to the procedure. All medicine(s) and interventions are by my order.
--- NOTE | 2019-04-26 08:04 | History & Physical Bridge Note ---
Date of Service April 26, 2019 History & Physical Bridge Note I have examined the patient, reviewed the History & Physical and in the interval since the performance of the History & Physical I have noted the following changes of clinical significance: no changes noted
[2019-04-26] MEDS: MIDAZOLAM HCL 1 MG/ML 2ML VIAL IV STA ×2 (08:11→09:31)
--- NOTE | 2019-04-26 08:24 | Post Anesthesia Assessment ---
Date of Service April 26, 2019 Post Sedation Assessment Vital Signs Temp Pulse Pulse Resp BP BP Pulse Ox 04/26/19 08:20 84 18 112/73 93 04/26/19 08:15 83 18 114/74 94 04/26/19 08:10 70 20 109/82 97 04/26/19 08:05 78 18 125/80 97 04/26/19 08:00 68 18 122/76 98 04/26/19 07:41 72 04/26/19 07:11 37.1 C 74 20 120/78 92 04/26/19 07:08 77 16 91 04/26/19 04:00 36.7 C 73 20 112/67 92 04/26/19 00:47 68 04/25/19 23:00 36.5 C 73 20 100/61 95 04/25/19 19:15 64 18 96 04/25/19 18:57 36.6 C 68 20 96/61 L 90 04/25/19 16:56 72 04/25/19 15:18 36.3 C L 76 18 119/73 91 04/25/19 13:59 64 20 04/25/19 12:00 36.9 C 58 L 18 109/63 91 04/25/19 11:00 36.9 C 58 L 18 109/63 91 Recovery Score Activity: Moves 4 extremities Respiration: Deep Breath/Cough Circulation: +/-20% PreAnes Value Consciousness: Arouseable (by name) Oxygen Saturation: O2 needed for >90% Post Anesthesia Score: 8 Discharge Sedation Level of Care: Fast Track Phase II Post Sedation Plan On clinical assessment, the patient appears to have tolerated the sedation wit hout complications. Patient is recovering as anticipated. Patient will continue to be monitored by nursing and may be discharged when sedation discharge criteria are met per below protocol. Upon Completions of procedure up to 15 minutes continue every 5 minute vital signs and the P.A.R. score; then discharge to a Phase I or Fast Track to Phase II per the following guidelines: * Discharge Patient to appropriate Phase II area if PAR is 8 or greater or return to pre- procedure baseline. The post - procedure orders will be as directed. * If PAR score is less than 8 or not return to pre-procedure baseline then patient will follow Phase I monitoring till PAR is reached for Phase II. The Phase I may be done in procedure room or may call to secure a Phase I area. * If naloxone or flumazenil are used for reversal, hold in Phase I for continued monitoring from when last reversal dose was given for a minimum of 60 minutes or longer pending the nurse and/or physician discretion of patient condition before discharge to Phase II. Please call the Sedation Physician to re-evaluate and complete post-note for discharge to Phase II area. Do NOT discharge from procedure sedation or Phase 1 until post- sedation evaluation note is complete by procedure /sedation MD Sedation Discharge Instructions to be given to the patient at discharge to home.
--- NOTE | 2019-04-26 08:27 | Procedure Note ---
Procedure Note: Bronchoscopy Procedure Procedure: Fiberoptic bronchoscopy Bronchoalveolar lavage, right lower lobe Conscious sedation Provider: Dustin Tuttle MD Consent: Signed by patient and timeout verified prior to procedure. Sedation start: 8:05 AM Sedation end: 8:20 AM Conscious sedation: 125 mcg fentanyl, 5 mrem Versed, and topical lidocaine per RT protocol Procedure: Patient was brought to the bronchoscopy suite. Consent was verified. Appropriate radiographic studies had been reviewed prior to the procedure. Standard monitoring was applied. Oxygen was administered. After topical anesthesia of the airways per respiratory therapy protocol, the fiberoptic scope was advanced through the left nares. Oropharynx was unremarkable. Vocal cords were visualized and were normal in function and appearance. Topical anesthesia of the cords was achieved with instillation of lidocaine through the scope. Scope was then passed through the vocal cords. The trachea was midline. Main jamshid was sharp. Anesthesia of the lower airways was achieved with instillation of lidocaine through the scope. A sequential and systematic examination of the lower airways was conducted. The right-sided airways were widely patent and the mucosa appeared normal. Left- sided airways were widely patent without endobronchial lesion and the mucosa appeared normal. Minimal thin secretions were identified throughout the tracheobronchial tree. These did not appear overtly purulent. After the inspection bronchoscopy was completed, the scope was advanced into the basilar segments of the right lower lobe. With the scope wedged in place a BAL was attempted with instillation of 120 mL's of saline. Return was suboptimal as the airways demonstrated easy collapsibility. No bleeding or evidence of pulmonary hemorrhage was identified. The bronchoscope was then removed from the airways. The patient tolerated the procedure well without obvious complication. Patient was returned to the recovery room. Impression: 1. Normal inspection bronchoscopy. 2. Attempted BAL right lower lobe with suboptimal return. Await microbiologic and cytologic analysis. Fluid will be sent for differential as well to look for eosinophilia.
[2019-04-26] MEDS ORDERED: LIDOCAINE 4% INH SOLN 4 ML BTL NEB ONE (08:28)
[2019-04-26] MEDS ORDERED: LIDOCAINE HCL 2% (LOCAL) INJ 50 ML VIAL INSTIL ONE (08:28)
[2019-04-26] MEDS ORDERED: fentaNYL citrate 100 MCG/2 ML VIAL IV ONE (08:28)
[2019-04-26] MEDS ORDERED: LIDOCAINE HCL VISCOUS SOLN 2% 15 ML UDC TOP ONE (08:28)
--- NOTE | 2019-04-26 08:33 | Pulmonology Progress Note ---
Date of Service April 26, 2019 Assessment & Plan (1) Abnormal CT scan of lung: Impression: 53-year-old male with extensive history of tobacco abuse and COPD with recent admission for MRSA pneumonia presenting now with bibasilar interstitial disease and leukopenia. He been maintained on outpatient ceftaroline. Recommendations: 1. Abnormal CT scan: Differential remains broad to include infectious and inflammatory etiologies. Could represent secondary infection. Pulmonary toxicity associated with ceftaroline would also be in the differential. Patient is status post bronchoscopy this morning. There did not appear to be significant purulence within the airways. BAL is currently pending. Await microbiologic studies and cell count differential. Given the possibility for antibiotic associated ILD/eosinophilic pneumonia, may be appropriate to initiate steroids but will wait for cell count differential. 2. History of MRSA pneumonia: Antibiotics per ID 3. Hypoxemic: Continue oxygen titrated to keep saturations at or above 88% 4. DVT upper extremity: Associated with PICC line. PICC line is now removed. Continue anticoagulation. Will need at least 3 months as this was associated with a catheter. 5. COPD: The patient is not overtly bronchospastic currently. Continue as needed bronchodilators. We will continue to follow with you (2) COPD (chronic obstructive pulmonary disease): COPD type: unspecified COPD Qualified Code(s): J44.9 - Chronic obstructive pulmonary disease, unspecified (3) Hypoxia: Subjective No acute events overnight. Patient n.p.o. for bronchoscopy. Bronchoscopy completed this morning. Please see separate note. Trivial findings identified. No fevers overnight. Remains on high flow oxygen. Review of Systems Review of Systems: Unchanged from prior Physical Exam Physical Exam: GENERAL : No acute distress. EYES: No icterus, gaze conjugate. Pupils equal round reactive to light NOSE: No evidence of epistaxis. Nasal cannula in place MOUTH: No lesions or candidiasis. NECK: Supple. No stridor LUNGS: Patient with coarse rales at the bases. He does not have any specific bronchospasm. No overt rhonchi. HEART: Regular, rate controlled ABDOMEN: Soft, NT, ND, BS Present EXTREMITIES: No LE edema, pedal pulses intact NEURO: A&OX3 Results & Data Vital Signs (Past 12 Hours) Vital Signs Temp Pulse Pulse Resp BP BP Pulse Ox 04/26/19 08:20 84 18 112/73 93 04/26/19 08:15 83 18 114/74 94 04/26/19 08:10 70 20 109/82 97 04/26/19 08:05 78 18 125/80 97 04/26/19 08:00 68 18 122/76 98 04/26/19 07:41 72 04/26/19 07:11 37.1 C 74 20 120/78 92 04/26/19 07:08 77 16 91 04/26/19 04:00 36.7 C 73 20 112/67 92 04/26/19 00:47 68 04/25/19 23:00 36.5 C 73 20 100/61 95 Laboratory Results 04/25/19 00:51 04/25/19 00:51 Microbiology 04/24/19 13:11 Blood Aerobic Blood Culture - Preliminary No growth in Aerobic bottle after 24 hours. 04/24/19 13:11 Blood Anaerobic Blood Culture - Preliminary No growth in Anaerobic bottle after 24 hours. 04/24/19 13:14 Blood Aerobic Blood Culture - Preliminary No growth in Aerobic bottle after 24 hours. 04/24/19 13:14 Blood Anaerobic Blood Culture - Preliminary No growth in Anaerobic bottle after 24 hours. Diagnostic Findings No new imaging PG Care Time/CCT Total # of Minutes Spent Total Time Spent with Patient: Total time spent is greater than 50% in coordination of care (as documented) at patient's floor/unit and/or counseling patient:
[2019-04-26] MEDS: VANCOMYCIN HCL 1,250 MG in SODIUM CHLORIDE 0.9% 250 ML IV SCH ×2 (09:00→15:37)
[2019-04-26] MEDS: methylPREDNISolone 40 MG in SYRINGE 0 ML IV SCH (09:00)
[2019-04-26] MEDS: LIDOCAINE 5% 1 PATCH TD SCH (09:01)
[2019-04-26] MEDS: INSULIN ASPART 100 UNITS/ML 3 ML PEN SC SCH ×4 (09:02→20:44)
[2019-04-26] MEDS: INSULIN GLARGINE SOLOSTAR 100 UNITS/ML 3 ML PEN SQ SCH (09:28)
[2019-04-26] MEDS: NICOTINE 21 MG/24 HR TDSY TD SCH (09:29)
[2019-04-26 10:03] LABS: Hematocrit (blood only) 26.8 % (42-52); Mean Corpuscular Hgb Conc 33.6 g/dL (32-36); Mean Corpuscular Volume 89.3 fL (80-100); Mean Platelet Volume 9.7 fL (7.4-10.4); Platelet Count 222 K/uL (130-400); RDW Coefficient of Variation 13.1 % (11.5-14.5); RDW Standard Deviation 42.9 fL (36.4-46.3); White Blood Count 2.17 K/uL (4.8-10.8)
[2019-04-26 10:18] LABS: Partial Thromboplastin Ratio 0.9; Partial Thromboplastin Time 24.6 Seconds (21.0-31.0)
[2019-04-26 10:26] LABS: BUN Creatinine Ratio 16.8 (10-20); Calcium 7.9 mg/dl (8.5-10.1); Creatinine Clr Calc Pharmacy 128.2 ml/min; Est GFR (African American) 125.5; Est GFR (Non-African American) 108.3; Magnesium 2.1 mg/dl (1.8-2.4); Potassium 3.8 mmol/L (3.5-5.1)
[2019-04-26 10:27] LABS: Basophils # (auto) 0.06 K/uL (0-0.2); Basophils % (auto) 2.8 %; Lymphocytes # (auto) 0.85 K/uL (1.2-3.4); Lymphocytes % (auto) 39.2 %; Monocytes # (auto) 0.94 K/uL (0.11-0.59); Monocytes % (auto) 43.3 %; Neutrophils # (auto) 0.32 K/uL (1.4-6.5); Neutrophils % (auto) 14.7 %
[2019-04-26] MEDS: HEPARIN SODIUM/DEXTROSE 25,000 UNITS/500 ML BAG IV SCH ×2 (11:39→16:54)
[2019-04-26] MEDS: OXYCODONE/ACETAMINOPHEN 5mg/325mg TAB PO PRN ×2 (11:46→17:28)
[2019-04-26] MEDS: PANTOprazole 40 MG TAB PO SCH (11:47)
[2019-04-26] MEDS: LACTOBACILLUS ACIDOPHILUS (FLORANEX) TAB PO SCH (11:47)
[2019-04-26] MEDS: LORATADINE 10 MG TAB PO SCH (11:47)
[2019-04-26 12:08] LABS: Basophil Body Fluid Man 1 %; Eosinophil Body Fluid Man 0 %; Fluid Mono/Macrophage 16 %; Lymphocyte Body Fluid Man 68 %; Neutrophil Body Fluid Man 15 %
--- NOTE | 2019-04-26 12:19 | Pharmacy Report ---
Pharmacy Abx Dose Short Note - Date of Service April 26, 2019 - Assessment & Plan Assessment 53 year old M admitted with fever and neutropenia. On empiric vancomycin and zosyn IV for treatment of pneumonia. Pulmonology and ID consulted. Abnormal CT scan; infection vs. pulmonary toxicity from ceftaroline vs. eosinophilic pneumonia * Day # 3 of antimicrobial therapy * Recent MRSA pneumonia and bacteremia (03/09/19) - treated with vanc + zosyn and changed to ceftaroline on discharge * s/p bronch on 04/26 - cultures pending Plan Vancomycin * Trough level of 16.4 mcg/mL is therapeutic * Continue dose of 1250 mg IV every 8 hours (similar dose produced therapeutic levels in recent past) * Goal trough level for lung infection : >15 mcg/mL * Repeat trough level ordered for: 04/27 @ 0730 Zosyn * Continue 3.375g IV q8 hours for CrCl > 20 Pharmacy will continue to follow and will adjust dose/frequency as necessary. Thank you.
--- NOTE | 2019-04-26 16:35 | Hospitalist Progress Note ---
Date of Service April 26, 2019 Assessment & Plan (1) Acute hypoxemic respiratory failure: History of COPD with recent MRSA pneumonia Finished antibiotic as as prescribed Admitted with the acute shortness of breath and the condition got worse overnight CT of the chest did show bilateral lower lobe infiltration Appreciate pulmonary input and recommendation Status post bronchoscopy today with lavage He has been feeling a lot better following bronchoscopy We will continue current medications (2) COPD (chronic obstructive pulmonary disease): Has been getting intravenous antibiotic Intravenous Solu-Medrol Nebulized bronchodilator Clinically improving (3) Worsening pneumonia: As above Has been on Zosyn and vancomycin Blood cultures have been negative Await bronchoscopy before changing antibiotic Await results of bronchoalveolar lavage before changing antibiotic (4) DVT (deep venous thrombosis): Left upper extremity acute DVT Status post removal of PICC line Has been on anticoagulation for that (5) HTN (hypertension): Blood pressure seems to be under control (6) Chronic lumbar pain: Has been taking Percocet 5/325 1 tablet every 6 hourly for chronic back pain [place] has been changed to Percocet Discussed with the family members Subjective 04/25 The patient was seen and examined in medical floor He is a 53-year-old male with past medical history of MRSA pneumonia recently discharged on March 16, neutropenia, hypertension, gram-positive sepsis, chin cellulitis, COPD, GERD, chronic back pain, turns with shortness of breath and left upper extremity swelling. Noted to be more shortness of breath at night and requiring more oxygen Started on intravenous Solu-Medrol Has been feeling much better this morning 04/26 The patient was seen and examined in medical floor He is a status post bronchoscopy this morning Has been feeling much better following the Denies any significant symptoms and wants to eat Review of Systems Review of Systems: All systems reviewed and are unremarkable except as noted below Physical Exam Physical Exam: Lying in bed comfortably without any acute symptoms Constitutional: well developed, well nourished, + acute distress (With shortness of breath), + ill appearing and + obese Eyes: PERRL, conjunctivae normal, anicteric sclerae ENMT: external ear and nose normal, oropharynx normal Neck: trachea midline, no thyromegaly Respiratory: + respiratory distress (Moderate shortness of breath at rest) Auscultation: + diminished lung sounds and + crackles (Bilaterally at the bases) Cardiovascular: Rate/Rhythm: regular rate and regular rhythm Heart Sounds: no murmur Gastrointestinal (Abdomen): Inspection/Auscultation: abdomen normal to inspection and normal bowel sounds Percussion/Palpation: abdomen soft; abdomen nontender Musculoskeletal: No acute arthritis in any joints Lymphatic: no cervical or axillary lymphadenopathy Results & Data Vital Signs (Past 12 Hours) Vital Signs Temp Pulse Pulse Resp BP BP Pulse Ox 04/26/19 15:51 92 H 04/26/19 15:22 36.4 C L 79 20 127/71 90 04/26/19 14:03 81 18 88 L 04/26/19 10:42 37.1 C 68 18 105/66 92 04/26/19 09:29 36.8 C 64 18 123/80 94 04/26/19 08:59 36.6 C 63 18 125/79 87 L 04/26/19 08:40 70 22 119/77 95 04/26/19 08:35 74 22 114/71 94 04/26/19 08:30 75 20 115/82 96 04/26/19 08:25 77 18 134/74 93 04/26/19 08:20 84 18 112/73 93 04/26/19 08:15 83 18 114/74 94 04/26/19 08:10 70 20 109/82 97 04/26/19 08:05 78 18 125/80 97 04/26/19 08:00 68 18 122/76 98 04/26/19 07:41 72 04/26/19 07:11 37.1 C 74 20 120/78 92 04/26/19 07:08 77 16 91 Laboratory Results Short CBC 04/26/19 Range/Units 09:40 WBC 2.17 L (4.8-10.8) K/uL Hgb 9.0 L (14.0-18.0) g/dL Hct 26.8 L (42-52) % Plt Count 222 (130-400) K/uL BMP 04/26/19 09:40 Sodium 144 Potassium 3.8 Chloride 112 H Carbon Dioxide 25 BUN 11 Creatinine 0.68 Glucose 97 Calcium 7.9 L Medications Administered Current Inpatient Medications Acetaminophen (Tylenol) 1,000 mg PO QID PRN PRN Reason: Pain Stop: 05/24/19 19:32 Al Hydrox/Mg Hydrox/Simethicone (Maalox) 30 ml PO Q6H PRN PRN Reason: Dyspepsia Stop: 05/24/19 19:32 Dextrose (Dextrose 50%) 25 - 50 ml IV UD PRN; Protocol PRN Reason: Hypoglycemia Protocol Stop: 05/25/19 00:47 Dicyclomine HCl (Bentyl) 10 mg PO QID PRN PRN Reason: ABD PAIN Stop: 05/24/19 19:32 Last Admin: 04/25/19 08:39 Dose: 10 mg Documented by: Glucagon (Glucagen) 1 mg SQ UD PRN; Protocol PRN Reason: Hypoglycemia Protocol Stop: 05/25/19 00:47 Glucose (Dex4 Glucose) 4 - 8 tabs PO UD PRN; Protocol PRN Reason: Hypoglycemia Protocol Stop: 05/25/19 00:47 Glucose (Glucose 40%) 15 - 30 gm PO UD PRN; Protocol PRN Reason: Hypoglycemia Protocol Stop: 05/25/19 00:47 Heparin Sodium/Dextrose (Heparin Sodium/Dextrose) 25,000 units in 500 mls @ 32 mls/hr IV .[id number] NEW; Protocol Stop: 05/24/19 15:44 Last Titration: 04/26/19 15:01 Dose: 1,600 units/hr, 32 mls/hr Documented by: Vancomycin HCl 1,250 mg/ (Sodium Chloride) 275 mls @ 125 mls/hr IV Q8H NEW; Protocol Stop: 05/02/19 00:00 Last Admin: 04/26/19 15:37 Dose: 125 mls/hr Documented by: Methylprednisolone 40 mg/ (Syringe) 0.64 mls @ 1.5 mls/min IV DAILY NEW Stop: 05/25/19 08:59 Last Admin: 04/26/19 09:00 Dose: 1.5 mls/min Documented by: Piperacillin Sod/Tazobactam (Sod 3.375 gm/ Dextrose) 115 mls @ 28.75 mls/hr IV Q8H NEW; Protocol Stop: 05/02/19 05:59 Last Admin: 04/26/19 13:27 Dose: 28.8 mls/hr Documented by: Insulin Aspart (Novolog Flexpen) 0 units SC ACHS NEW Stop: 05/25/19 00:49 Last Admin: 04/26/19 13:24 Dose: 300 units Documented by: Insulin Glargine (Lantus Solostar Pen) 5 units SQ DAILY NEW Stop: 05/26/19 08:59 Last Admin: 04/26/19 09:28 Dose: 5 units Documented by: Ioversol (Optiray 320 125ml) 115 ml IV ONCE PRN PRN Reason: Interaction Checking Stop: 04/28/19 15:10 Last Admin: 04/24/19 15:12 Dose: 115 ml Documented by: Ipratropium [place] (Atrovent 0.02% 0.5mg/2.5ml) 0.5 mg INH Q6R NEW Stop: 05/25/19 00:59 Last Admin: 04/26/19 14:03 Dose: 0.5 mg Documented by: Lactobacillus Acidophilus (Floranex) 4 tab PO DAILY [facility] Stop: 05/25/19 08:59 Last Admin: 04/26/19 11:47 Dose: 4 tab Documented by: Levalbuterol HCl (Xopenex 1.25mg/0.5ml Neb) 1.25 mg INH Q6R [facility] Stop: 05/25/19 00:59 Last Admin: 04/26/19 14:03 Dose: 1.25 mg Documented by: Lidocaine (Lidoderm 5%) 1 patch TD DAILY NEW Stop: 05/25/19 08:59 Last Admin: 04/26/19 09:01 Dose: 1 patch Documented by: Loratadine (Claritin) 10 mg PO DAILY [facility] Stop: 05/25/19 08:59 Last Admin: 04/26/19 11:47 Dose: 10 mg Documented by: Miscellaneous (Remove Lidoderm Patch) 1 ea N/A DAILY@2100 [facility] Stop: 05/24/19 20:59 Last Admin: 04/25/19 21:10 Dose: Not Given Documented by: Miscellaneous (Remove Nicoderm Patch) 1 ea N/A DAILY@0859 [facility] Stop: 05/25/19 08:58 Last Admin: 04/26/19 09:29 Dose: Not Given Documented by: Miscellaneous (Carbohydrates For Hypoglycemia) 15 - 30 gm PO UD PRN PRN Reason: Hypoglycemia Protocol Stop: 05/25/19 00:47 Miscellaneous Information (Consult) 1 ea N/A UD PRN PRN Reason: Consult Stop: 05/24/19 15:35 Miscellaneous Information (Consult) 1 ea N/A UD PRN PRN Reason: Consult Stop: 05/25/19 00:25 Naproxen (Naprosyn) 250 mg PO BID PRN PRN Reason: Pain Stop: 05/24/19 20:13 Nicotine (Nicoderm Cq) 21 mg TD QAM [facility] Stop: 05/25/19 00:34 Last Admin: 04/26/19 09:29 Dose: 21 mg Documented by: Ondansetron HCl (Zofran) 4 mg IV Q6H PRN PRN Reason: Nausea Stop: 05/24/19 19:32 Oxycodone/Acetaminophen (Percocet 5mg/325mg) 1 tab PO Q6H PRN PRN Reason: Pain Stop: 05/09/19 17:05 Last Admin: 04/26/19 11:46 Dose: 1 tab Documented by: Pantoprazole Sodium (Protonix) 40 mg PO DAILY [facility] Stop: 05/25/19 08:59 Last Admin: 04/26/19 11:47 Dose: 40 mg Documented by: (1) COPD (chronic obstructive pulmonary disease) COPD type: unspecified COPD Qualified Code(s): J44.9 - Chronic obstructive pulmonary disease, unspecified (2) DVT (deep venous thrombosis) Affected thrombotic vein of extremity: unspecified vein of extremity Chronicity: unspecified DVT location: upper extremity Laterality: unspecified laterality Qualified Code(s): I82.629 - Acute embolism and thrombosis of deep veins of unspecified upper extremity (3) Chronic lumbar pain Back pain laterality: left Sciatica presence: unspecified whether sciatica present Qualified Code(s): M54.5 - Low back pain; G89.29 - Other chronic pain
[2019-04-26 17:31] LABS: Partial Thromboplastin Ratio 1.3; Partial Thromboplastin Time 35.2 Seconds (21.0-31.0)
[2019-04-26] MEDS ORDERED: HEPARIN IV BOLUS 6,000 UNITS in SYRINGE 0 ML IV STA (17:54)
[2019-04-27] MEDS: VANCOMYCIN HCL 1,250 MG in SODIUM CHLORIDE 0.9% 250 ML IV SCH ×3 (00:11→15:58)
[2019-04-27] MEDS: OXYCODONE/ACETAMINOPHEN 5mg/325mg TAB PO PRN ×3 (00:16→22:11)
[2019-04-27 00:56] LABS: Partial Thromboplastin Ratio 2.9
[2019-04-27 01:03] LABS: Partial Thromboplastin Time 77.6 Seconds (21.0-31.0)
[2019-04-27] MEDS: IPRATROPIUM BROMIDE NEB SOLN 0.02% 2.5 ML VIAL INH SCH ×4 (01:19→19:01)
[2019-04-27] MEDS: LEVALBUTEROL 1.25MG/0.5ML NEB INH SCH ×4 (01:35→19:01)
[2019-04-27] MEDS: HEPARIN SODIUM/DEXTROSE 25,000 UNITS/500 ML BAG IV SCH ×2 (01:41→15:32)
[2019-04-27] MEDS: PIPERACILLIN/TAZOBACTAM 3.375 GM in DEXTROSE 5% 100 ML IV SCH ×3 (05:33→21:55)
[2019-04-27] MEDS ORDERED: VANCOMYCIN TROUGH SCH (07:30)
[2019-04-27 07:36] LABS: Hematocrit (blood only) 26.9 % (42-52); Hemoglobin 8.7 g/dL (14.0-18.0); Mean Corpuscular Hemoglobin 28.8 pg (25-34); Mean Corpuscular Hgb Conc 32.3 g/dL (32-36); Mean Corpuscular Volume 89.1 fL (80-100); Mean Platelet Volume 9.9 fL (7.4-10.4); Platelet Count 257 K/uL (130-400); RDW Coefficient of Variation 13.3 % (11.5-14.5); RDW Standard Deviation 42.9 fL (36.4-46.3); Red Blood Count 3.02 M/uL (4.7-6.1); White Blood Count 2.84 K/uL (4.8-10.8)
[2019-04-27 08:08] LABS: BUN Creatinine Ratio 12.6 (10-20); Calcium 8.3 mg/dl (8.5-10.1); Creatinine Clr Calc Pharmacy 128.2 ml/min; Est GFR (African American) 125.5; Est GFR (Non-African American) 108.3; Potassium 3.7 mmol/L (3.5-5.1)
[2019-04-27 08:09] LABS: Partial Thromboplastin Ratio 2.5
[2019-04-27 08:11] LABS: Phosphorus 3.4 mg/dl (2.5-4.9)
[2019-04-27 08:22] LABS: Partial Thromboplastin Time 68.2 Seconds (21.0-31.0)
[2019-04-27] MEDS: methylPREDNISolone 40 MG in SYRINGE 0 ML IV SCH (08:28)
[2019-04-27] MEDS: NICOTINE 21 MG/24 HR TDSY TD SCH (08:29)
[2019-04-27] MEDS: LIDOCAINE 5% 1 PATCH TD SCH (08:29)
[2019-04-27] MEDS: LACTOBACILLUS ACIDOPHILUS (FLORANEX) TAB PO SCH (08:30)
[2019-04-27] MEDS: PANTOprazole 40 MG TAB PO SCH (08:30)
[2019-04-27] MEDS: LORATADINE 10 MG TAB PO SCH (08:30)
[2019-04-27] MEDS: INSULIN GLARGINE SOLOSTAR 100 UNITS/ML 3 ML PEN SQ SCH (08:31)
[2019-04-27] MEDS: INSULIN ASPART 100 UNITS/ML 3 ML PEN SC SCH ×4 (08:34→21:32)
[2019-04-27 08:42] LABS: Basophils # (auto) 0.02 K/uL (0-0.2); Basophils % (auto) 0.7 %; Lymphocytes # (auto) 1.51 K/uL (1.2-3.4); Lymphocytes % (auto) 53.2 %; Monocytes # (auto) 0.68 K/uL (0.11-0.59); Monocytes % (auto) 23.9 %; Neutrophils # (auto) 0.63 K/uL (1.4-6.5); Neutrophils % (auto) 22.2 %
--- NOTE | 2019-04-27 09:39 | Pharmacy Report ---
Pharmacy Abx Dose Short Note - Date of Service April 27, 2019 - Assessment & Plan - Assessment & Plan Assessment 53 year old M admitted with fever and neutropenia. On empiric vancomycin and zosyn IV for treatment of pneumonia. Pulmonology and ID consulted. Abnormal CT scan; infection vs. pulmonary toxicity from ceftaroline vs. eosinophilic pneumonia * Day # 4 of antimicrobial therapy * Recent MRSA pneumonia and bacteremia (03/09/19) - treated with vanc + zosyn and changed to ceftaroline on discharge * s/p bronch on 04/26 - cultures pending * Blood cultures show no growth Plan Vancomycin * Trough level of 21.9 mcg/mL is supratherapeutic * CHANGE dose to 1250 mg IV every 12 hours * Goal trough level for lung infection : >15 mcg/mL * Repeat trough level ordered for: 04/29 @ 0730 Zosyn * Continue 3.375g IV q8 hours for CrCl > 20 Pharmacy will continue to follow and will adjust dose/frequency as necessary. Thank you.
--- NOTE | 2019-04-27 12:32 | Pulmonology Progress Note ---
Date of Service April 27, 2019 Assessment & Plan (1) MRSA pneumonia: Fiberoptic bronchoscopy with BAL yesterday Gram-positive bacilli. Insert to be light normal [place]gan No report on AFB smear Continue antibiotics Consider infectious disease consult as patient was on Ceftaroline and this may have caused leukopenia Currently receiving vancomycin and zosyn (2) MRSA bacteremia: Currently day # 4 vancomycin and zosyn Was on Ceftaroline but concerned that this may have caused leukopenia Continue IV abx per ID recommendations (3) DVT (deep venous thrombosis): LUE DVT secondary to left UE PICC line Continue anticoagulation No further pulmonary procedures planned Affected thrombotic vein of extremity: unspecified vein of extremity Chronicity: unspecified DVT location: upper extremity Laterality: unspecified laterality Qualified Code(s): I82.629 - Acute embolism and thrombosis of deep veins of unspecified upper extremity (4) Hypoxia: Patient discharged on supplemental oxygen since 03/16/19 after last admission. Although the patient has COPD and continues to smoke, would hope that O2 could be weaned down Continue SaO2 88-92% As pneumonia improves, hopefully oxygen requirements will improve. Will need outpatient PFTs to determine extent of COPD and pulmonary disease after he is optimized and has recovered from his pneumonia and his bacteremia (5) COPD (chronic obstructive pulmonary disease): Patient continues to be an everyday smoker Again counselled on complete tobacco and vaping abstention Continue bronchodilators Change to prednisone and begin to taper as tolerated. Thank you for including us in the care of this patient. We will continue top follow along with you. COPD type: unspecified COPD Qualified Code(s): J44.9 - Chronic obstructive pulmonary disease, unspecified Subjective Attending: Dr. Tuttle Patient admitted 04/24/2019 with MRSA pneumonia. Patient underwent fiberoptic bronchoscopy yesterday. Patient had normal inspection of the bronchoscopy. A bronchial alveolar lavage was attempted the right lower lobe with suboptimal return. Labs are currently pending. There is no evidence of eosinophilia on the cell count differential. Patient denies any fever or sweats. He reports that his breathing seems to be improved. He continues with a cough but no sputum production. He continues with left upper extremity edema secondary to DVT which is considered to be secondary to recent PICC line. She has no other acute complaints at this time. Review of Systems Review of Systems: All systems reviewed & are unremarkable except as noted in HPI & below Physical Exam Physical Exam: GENERAL : No acute distress. Cantankerous. EYES: No icterus, gaze conjugate NOSE: No evidence of epistaxis MOUTH: No lesions or candidiasis NECK: Supple LUNGS: Some crackles at the bases. No bronchospasm. No rhonchi. Inspirational effort is adequate. HEART: Regular, rate controlled ABDOMEN: Soft, NT, ND, BS Present EXTREMITIES: No LE edema, pedal pulses intact. Left upper extremity edema. Radial and ulnar pulses are intact and appropriate. Capillary refill is appropriate. NEURO: A&OX3 Results & Data Vital Signs (Past 12 Hours) Vital Signs Temp Pulse Pulse Resp BP Pulse Ox 04/27/19 08:06 36.4 C L 78 18 136/88 90 04/27/19 07:07 59 L 71 18 91 04/27/19 01:35 72 18 89 L Laboratory Results 04/27/19 07:13 04/27/19 07:13 Diagnostic Findings No chest x-rays or other diagnostic imaging since 04/25/2019 Fiberoptic bronchoscopy 04/26/2019. Please refer to procedure note under separate cover. PG Care Time/CCT Total # of Minutes Spent Total Time Spent with Patient: Total time spent is greater than 50% in coordination of care (as documented) at patient's floor/unit and/or counseling patient: 30 minutes
--- NOTE | 2019-04-27 14:36 | Hospitalist Progress Note ---
Date of Service April 27, 2019 Assessment & Plan (1) Acute hypoxemic respiratory failure: History of COPD with recent MRSA pneumonia Finished antibiotic as as prescribed Admitted with the acute shortness of breath and the condition got worse overnight CT of the chest did show bilateral lower lobe infiltration Appreciate pulmonary input and recommendation Status post bronchoscopy today with lavage He has been feeling a lot better following bronchoscopy Sputum Gram stain shows few epithelial cells, many mononucleated cells, rare polys and rare gram-positive bacilli Will get ID input as per stable hand (2) COPD (chronic obstructive pulmonary disease): Has been getting intravenous antibiotic Intravenous Solu-Medrol Nebulized bronchodilator Clinically improving (3) Worsening pneumonia: As above Has been on Zosyn and vancomycin Blood cultures have been negative Await bronchoscopy before changing antibiotic Await results of bronchoalveolar lavage before changing antibiotic We will continue current antibiotics ID consulted (4) DVT (deep venous thrombosis): Left upper extremity acute DVT Status post removal of PICC line Has been on anticoagulation for that Coumadin has been started (5) HTN (hypertension): Blood pressure seems to be under control (6) Chronic lumbar pain: Has been taking Percocet 5/325 1 tablet every 6 hourly for chronic back pain [place] has been changed to Percocet Discussed with the family members Subjective 04/25 The patient was seen and examined in medical floor He is a 53-year-old male with past medical history of MRSA pneumonia recently discharged on March 16, neutropenia, hypertension, gram-positive sepsis, chin cellulitis, COPD, GERD, chronic back pain, turns with shortness of breath and left upper extremity swelling. Noted to be more shortness of breath at night and requiring more oxygen Started on intravenous Solu-Medrol Has been feeling much better this morning 04/26 The patient was seen and examined in medical floor He is a status post bronchoscopy this morning Has been feeling much better following the Denies any significant symptoms and wants to eat 04/27 The patient was seen and examined in medical floor He is a status post bronchoscopy for bilateral multi lobar pneumonia Has had MRSA pneumonia recently Bronchoalveolar leverage tests have been pending so far Clinically he is feeling much better Review of Systems Review of Systems: All systems reviewed and are unremarkable except as noted below Respiratory: + cough, + dyspnea on exertion and + wheezing Physical Exam Physical Exam: Lying in bed comfortably with minimal shortness of breath Constitutional: well developed, well nourished, + acute distress (With shortness of breath), + ill appearing and + obese Eyes: PERRL, conjunctivae normal, anicteric sclerae ENMT: external ear and nose normal, oropharynx normal Neck: trachea midline, no thyromegaly Respiratory: + respiratory distress (Moderate shortness of breath at rest) Auscultation: + diminished lung sounds, + crackles (Bilaterally at the bases) and + wheezes (Minimal wheezing as well) Cardiovascular: Rate/Rhythm: regular rate and regular rhythm Heart Sounds: no murmur Gastrointestinal (Abdomen): Inspection/Auscultation: abdomen normal to inspection and normal bowel sounds Percussion/Palpation: abdomen soft; abdomen nontender Lymphatic: no cervical or axillary lymphadenopathy Results & Data Vital Signs (Past 12 Hours) Vital Signs Temp Pulse Pulse Resp BP Pulse Ox 04/27/19 13:16 82 18 95 04/27/19 08:06 36.4 C L 78 18 136/88 90 04/27/19 07:07 59 L 71 18 91 Laboratory Results Short CBC 04/27/19 Range/Units 07:13 WBC 2.84 L (4.8-10.8) K/uL Hgb 8.7 L (14.0-18.0) g/dL Hct 26.9 L (42-52) % Plt Count 257 (130-400) K/uL BMP 04/27/19 07:13 Sodium 142 Potassium 3.7 Chloride 111 H Carbon Dioxide 24 BUN 9 Creatinine 0.68 Glucose 103 H Calcium 8.3 L Medications Administered Current Inpatient Medications Acetaminophen (Tylenol) 1,000 mg PO QID PRN PRN Reason: Pain Stop: 05/24/19 19:32 Al Hydrox/Mg Hydrox/Simethicone (Maalox) 30 ml PO Q6H PRN PRN Reason: Dyspepsia Stop: 05/24/19 19:32 Dextrose (Dextrose 50%) 25 - 50 ml IV UD PRN; Protocol PRN Reason: Hypoglycemia Protocol Stop: 05/25/19 00:47 Dicyclomine HCl (Bentyl) 10 mg PO QID PRN PRN Reason: ABD PAIN Stop: 05/24/19 19:32 Last Admin: 04/25/19 08:39 Dose: 10 mg Documented by: Glucagon (Glucagen) 1 mg SQ UD PRN; Protocol PRN Reason: Hypoglycemia Protocol Stop: 05/25/19 00:47 Glucose (Dex4 Glucose) 4 - 8 tabs PO UD PRN; Protocol PRN Reason: Hypoglycemia Protocol Stop: 05/25/19 00:47 Glucose (Glucose 40%) 15 - 30 gm PO UD PRN; Protocol PRN Reason: Hypoglycemia Protocol Stop: 05/25/19 00:47 Heparin Sodium/Dextrose (Heparin Sodium/Dextrose) 25,000 units in 500 mls @ 34 mls/hr IV .[id number] NEW; Protocol Stop: 05/24/19 15:44 Last Titration: 04/27/19 08:36 Dose: 1,700 units/hr, 34 mls/hr Documented by: Methylprednisolone 40 mg/ (Syringe) 0.64 mls @ 1.5 mls/min IV DAILY NEW Stop: 05/25/19 08:59 Last Admin: 04/27/19 08:28 Dose: 1.5 mls/min Documented by: Piperacillin Sod/Tazobactam (Sod 3.375 gm/ Dextrose) 115 mls @ 28.75 mls/hr IV Q8H NEW; Protocol Stop: 05/02/19 05:59 Last Admin: 04/27/19 13:55 Dose: 28.8 mls/hr Documented by: Vancomycin HCl 1,250 mg/ (Sodium Chloride) 275 mls @ 125 mls/hr IV Q12H NEW; Protocol Stop: 05/04/19 15:59 Insulin Aspart (Novolog Flexpen) 0 units SC ACHS NEW Stop: 05/25/19 00:49 Last Admin: 04/27/19 12:32 Dose: 3 units Documented by: Insulin Glargine (Lantus Solostar Pen) 5 units SQ DAILY NEW Stop: 05/26/19 08:59 Last Admin: 04/27/19 08:31 Dose: 5 units Documented by: Ioversol (Optiray 320 125ml) 115 ml IV ONCE PRN PRN Reason: Interaction Checking Stop: 04/28/19 15:10 Last Admin: 04/24/19 15:12 Dose: 115 ml Documented by: Ipratropium [place] (Atrovent 0.02% 0.5mg/2.5ml) 0.5 mg INH Q6R NEW Stop: 05/25/19 00:59 Last Admin: 04/27/19 13:13 Dose: 0.5 mg Documented by: Lactobacillus Acidophilus (Floranex) 4 tab PO DAILY [facility] Stop: 05/25/19 08:59 Last Admin: 04/27/19 08:30 Dose: 4 tab Documented by: Levalbuterol HCl (Xopenex 1.25mg/0.5ml Neb) 1.25 mg INH Q6R [facility] Stop: 05/25/19 00:59 Last Admin: 04/27/19 13:13 Dose: 1.25 mg Documented by: Lidocaine (Lidoderm 5%) 1 patch TD DAILY [facility] Stop: 05/25/19 08:59 Last Admin: 04/27/19 08:29 Dose: 1 patch Documented by: Loratadine (Claritin) 10 mg PO DAILY [facility] Stop: 05/25/19 08:59 Last Admin: 04/27/19 08:30 Dose: 10 mg Documented by: Miscellaneous (Remove Lidoderm Patch) 1 ea N/A DAILY@2100 [facility] Stop: 05/24/19 20:59 Last Admin: 04/26/19 19:52 Dose: 1 ea Documented by: Miscellaneous (Remove Nicoderm Patch) 1 ea N/A DAILY@0859 [facility] Stop: 05/25/19 08:58 Last Admin: 04/27/19 08:30 Dose: 1 ea Documented by: Miscellaneous (Carbohydrates For Hypoglycemia) 15 - 30 gm PO UD PRN PRN Reason: Hypoglycemia Protocol Stop: 05/25/19 00:47 Miscellaneous Information (Consult) 1 ea N/A UD PRN PRN Reason: Consult Stop: 05/24/19 15:35 Miscellaneous Information (Consult) 1 ea N/A UD PRN PRN Reason: Consult Stop: 05/25/19 00:25 Naproxen (Naprosyn) 250 mg PO BID PRN PRN Reason: Pain Stop: 05/24/19 20:13 Nicotine (Nicoderm Cq) 21 mg TD QAM [facility] Stop: 05/25/19 00:34 Last Admin: 04/27/19 08:29 Dose: 21 mg Documented by: Ondansetron HCl (Zofran) 4 mg IV Q6H PRN PRN Reason: Nausea Stop: 05/24/19 19:32 Oxycodone/Acetaminophen (Percocet 5mg/325mg) 1 tab PO Q6H PRN PRN Reason: Pain Stop: 05/09/19 17:05 Last Admin: 04/27/19 08:54 Dose: 1 tab Documented by: Pantoprazole Sodium (Protonix) 40 mg PO DAILY [facility] Stop: 05/25/19 08:59 Last Admin: 04/27/19 08:30 Dose: 40 mg Documented by: (1) COPD (chronic obstructive pulmonary disease) COPD type: unspecified COPD Qualified Code(s): J44.9 - Chronic obstructive pulmonary disease, unspecified (2) DVT (deep venous thrombosis) Affected thrombotic vein of extremity: unspecified vein of extremity Chronicity: unspecified DVT location: upper extremity Laterality: unspecified laterality Qualified Code(s): I82.629 - Acute embolism and thrombosis of deep veins of unspecified upper extremity (3) Chronic lumbar pain Back pain laterality: left Sciatica presence: unspecified whether sciatica present Qualified Code(s): M54.5 - Low back pain; G89.29 - Other chronic pain
[2019-04-27 15:21] LABS: Partial Thromboplastin Ratio 1.6; Partial Thromboplastin Time 43.3 Seconds (21.0-31.0)
[2019-04-27] MEDS: WARFARIN SOD 5 MG TAB PO SCH (15:57)
[2019-04-27] MEDS ORDERED: HEPARIN IV BOLUS 3,000 UNITS in SYRINGE 0 ML IV ONE (16:00)
[2019-04-27 23:14] LABS: Partial Thromboplastin Ratio 1.8
[2019-04-27 23:15] LABS: Partial Thromboplastin Time 49.8 Seconds (21.0-31.0)
[2019-04-28] MEDS: LEVALBUTEROL 1.25MG/0.5ML NEB INH SCH ×2 (01:04→06:56)
[2019-04-28] MEDS: IPRATROPIUM BROMIDE NEB SOLN 0.02% 2.5 ML VIAL INH SCH ×2 (01:04→06:56)
[2019-04-28] MEDS: VANCOMYCIN HCL 1,250 MG in SODIUM CHLORIDE 0.9% 250 ML IV SCH ×2 (04:14→15:31)
[2019-04-28] MEDS: HEPARIN SODIUM/DEXTROSE 25,000 UNITS/500 ML BAG IV SCH ×3 (05:31→19:16)
[2019-04-28] MEDS: PIPERACILLIN/TAZOBACTAM 3.375 GM in DEXTROSE 5% 100 ML IV SCH ×3 (06:39→21:51)
[2019-04-28 06:40] LABS: Hematocrit (blood only) 27.4 % (42-52); Mean Corpuscular Hemoglobin 29.6 pg (25-34); Mean Corpuscular Hgb Conc 32.8 g/dL (32-36); Mean Corpuscular Volume 90.1 fL (80-100); Mean Platelet Volume 9.9 fL (7.4-10.4); Platelet Count 306 K/uL (130-400); RDW Coefficient of Variation 13.4 % (11.5-14.5); Red Blood Count 3.04 M/uL (4.7-6.1)
[2019-04-28 07:02] LABS: INR 1.1 (0.9-1.1); Partial Thromboplastin Ratio 1.9; Prothrombin Time 11.1 Seconds (9.0-12.0)
[2019-04-28 07:06] LABS: Partial Thromboplastin Time 50.4 Seconds (21.0-31.0)
[2019-04-28] MEDS: PANTOprazole 40 MG TAB PO SCH (08:11)
[2019-04-28] MEDS: methylPREDNISolone 40 MG in SYRINGE 0 ML IV SCH (08:11)
[2019-04-28] MEDS: LACTOBACILLUS ACIDOPHILUS (FLORANEX) TAB PO SCH (08:11)
[2019-04-28] MEDS: LIDOCAINE 5% 1 PATCH TD SCH (08:12)
[2019-04-28] MEDS: LORATADINE 10 MG TAB PO SCH (08:13)
[2019-04-28] MEDS: NICOTINE 21 MG/24 HR TDSY TD SCH (08:13)
[2019-04-28] MEDS: INSULIN ASPART 100 UNITS/ML 3 ML PEN SC SCH ×4 (08:14→21:45)
[2019-04-28] MEDS: INSULIN GLARGINE SOLOSTAR 100 UNITS/ML 3 ML PEN SQ SCH (08:16)
[2019-04-28] MEDS: OXYCODONE/ACETAMINOPHEN 5mg/325mg TAB PO PRN ×3 (08:30→21:50)
[2019-04-28] MEDS ORDERED: IPRATROPIUM BROMIDE NEB SOLN 0.02% 2.5 ML VIAL INH PRN (09:03)
[2019-04-28] MEDS ORDERED: LEVALBUTEROL 1.25MG/0.5ML NEB INH PRN (09:03)
--- NOTE | 2019-04-28 09:56 | Pulmonology Progress Note ---
Date of Service April 28, 2019 Assessment & Plan (1) Abnormal CT scan of lung: Impression: 54-year-old male with extensive history of COPD and prior admission for MRSA pneumonia admitted now with leukopenia and lower lobe infiltrates. He is status post bronchoscopy with BAL which has not shown any growth and airways were quite bland. He did have an upper extremity DVT associated with PICC line Recommendations: 1. Abnormal CT scan: Findings are of unclear etiology. Bronchoscopy is not identified any infectious organisms today and I doubt this is progression of his MRSA pneumonia. Pulmonary toxicity related to ceftaroline is possible and the antibiotic has been discontinued. His leukopenia appears to be resolving as well with discontinuation of ceftaroline. I am not sure I feel strongly about continuing antimicrobial therapy for a lung process at this point in time but w ill defer to infectious disease. The patient has been initiated on methylprednisolone. I would discontinue the IV and transition him to oral prednisone with plans for a 3-week taper. He should be followed up with a repeat CT scan and pulmonary function test in 3weeks at the conclusion of his steroid taper. 2. COPD: Patient is not overtly bronchospastic for now. Continue current inhalers. Outpatient PFTs recommended. 3. Tobacco abuse: Smoking cessation recommended to the patient. 4. Upper extremity DVT: Associated with a PICC line. At least 3 months of anticoagulation. Patient may be appropriate for discharge once his antibiotic and anticoagulation plans are finalized. We would be happy to see him back in pulmonary clinic (2) Acute hypoxemic respiratory failure: (3) COPD (chronic obstructive pulmonary disease): COPD type: unspecified COPD Qualified Code(s): J44.9 - Chronic obstructive pulmonary disease, unspecified Subjective Patient seen and examined. EMR reviewed. He states he is feeling better today. He is coughing less. He can come off of the oxygen intermittently. He has not had any hemoptysis. Review of Systems Review of Systems: Unchanged from prior Physical Exam Physical Exam: GENERAL : No acute distress. Cantankerous. EYES: No icterus, gaze conjugate NOSE: No evidence of epistaxis MOUTH: No lesions or candidiasis NECK: Supple LUNGS: Some crackles at the bases. No bronchospasm. No rhonchi. Inspirational effort is adequate. HEART: Regular, rate controlled ABDOMEN: Soft, NT, ND, BS Present EXTREMITIES: No LE edema, pedal pulses intact. Left upper extremity edema. Radial and ulnar pulses are intact and appropriate. Capillary refill is appropriate. NEURO: A&OX3 Results & Data Vital Signs (Past 12 Hours) Vital Signs Temp Pulse Pulse Resp BP Pulse Ox 04/28/19 07:37 36.9 C 80 19 126/71 92 04/28/19 06:57 18 92 04/28/19 03:31 36.8 C 81 16 122/72 93 04/28/19 01:06 66 18 94 04/27/19 22:23 116 H 04/27/19 22:18 36.5 C 86 19 148/80 H 90 Laboratory Results 04/28/19 05:56 04/27/19 07:13 Microbiology 04/26/19 08:17 Bronch Wash,Right Lower Lobe Gram Stain - Final 04/26/19 08:17 Bronch Wash,Right Lower Lobe Bronchoalveolar Lavage Culture - Final Light normal morgan. 04/26/19 08:17 Bronch Wash,Right Lower Lobe Acid Fast Bacilli Smear - Final 04/26/19 08:17 Bronch Wash,Right Lower Lobe Fungal Smear - Final 04/24/19 13:11 Blood Aerobic Blood Culture - Preliminary No growth in Aerobic bottle after 48 hours. 04/24/19 13:11 Blood Anaerobic Blood Culture - Preliminary No growth in Anaerobic bottle after 48 hours. 04/24/19 13:14 Blood Aerobic Blood Culture - Preliminary No growth in Aerobic bottle after 48 hours. 04/24/19 13:14 Blood Anaerobic Blood Culture - Preliminary No growth in Anaerobic bottle after 48 hours. Diagnostic Findings No new films PG Care Time/CCT Total # of Minutes Spent Total Time Spent with Patient: Total time spent is greater than 50% in coordination of care (as documented) at patient's floor/unit and/or counseling patient:
[2019-04-28] MEDS: BUDESONIDE/FORMOTEROL FUMARATE 160/4.5 60 PUFFS/INHALER INH SCH ×2 (11:19→21:47)
[2019-04-28] MEDS: TIOTROPIUM BROMIDE 5 PUFF/90 MCG INH INH SCH (11:20)
[2019-04-28] MEDS: IPRATROPIUM BROMIDE/ALBUTEROL respimat INH INH SCH ×3 (12:55→21:41)
--- NOTE | 2019-04-28 14:43 | Hospitalist Progress Note ---
Date of Service April 28, 2019 Assessment & Plan (1) Acute hypoxemic respiratory failure: History of COPD with recent MRSA pneumonia Finished antibiotic as as prescribed Admitted with the acute shortness of breath and the condition got worse overnight CT of the chest did show bilateral lower lobe infiltration Appreciate pulmonary input and recommendation Status post bronchoscopy today with lavage He has been feeling a lot better following bronchoscopy Sputum Gram stain shows few epithelial cells, many mononucleated cells, rare polys and rare gram-positive bacilli Will get ID input Clinically a lot better and wants to go home Awaiting ID evaluation and direction for use of antibiotics on discharge (2) COPD (chronic obstructive pulmonary disease): Has been getting intravenous antibiotic Intravenous Solu-Medrol Nebulized bronchodilator Clinically improving Denies any acute symptoms at rest (3) Worsening pneumonia: As above Has been on Zosyn and vancomycin Blood cultures have been negative Await bronchoscopy before changing antibiotic Await results of bronchoalveolar lavage before changing antibiotic We will continue current antibiotics ID consulted-awaiting input and recommendation about antibiotics on discharge (4) DVT (deep venous thrombosis): Left upper extremity acute DVT Status post removal of PICC line Has been on anticoagulation for that Coumadin has been started (5) HTN (hypertension): Blood pressure seems to be under control (6) Chronic lumbar pain: Has been taking Percocet 5/325 1 tablet every 6 hourly for chronic back pain [place] has been changed to Percocet Discussed with the family members Subjective 04/25 The patient was seen and examined in medical floor He is a 53-year-old male with past medical history of MRSA pneumonia recently discharged on March 16, neutropenia, hypertension, gram-positive sepsis, chin cellulitis, COPD, GERD, chronic back pain, turns with shortness of breath and left upper extremity swelling. Noted to be more shortness of breath at night and requiring more oxygen Started on intravenous Solu-Medrol Has been feeling much better this morning 04/26 The patient was seen and examined in medical floor He is a status post bronchoscopy this morning Has been feeling much better following the Denies any significant symptoms and wants to eat 04/27 The patient was seen and examined in medical floor He is a status post bronchoscopy for bilateral multi lobar pneumonia Has had MRSA pneumonia recently Bronchoalveolar leverage tests have been pending so far Clinically he is feeling much better 04/28 Patient was seen and examined in medical floor He has been feeling a lot better Denies any symptoms of cough, shortness of breath, chest pain, denies any abdominal pain, nausea and/or vomiting He wants to go home Review of Systems Review of Systems: All systems reviewed and are unremarkable except as noted below Respiratory: + cough; no dyspnea (At rest) Physical Exam Physical Exam: Lying in bed comfortably Constitutional: well developed, well nourished, + acute distress (With shortness of breath), + ill appearing and + obese Eyes: PERRL, conjunctivae normal, anicteric sclerae ENMT: external ear and nose normal, oropharynx normal Neck: trachea midline, no thyromegaly Respiratory: no respiratory distress (At rest) Auscultation: + diminished lung sounds, + crackles (Bilaterally at the bases) and + wheezes (Minimal wheezing as well) Cardiovascular: Rate/Rhythm: regular rate and regular rhythm Heart Sounds: no murmur Gastrointestinal (Abdomen): Inspection/Auscultation: abdomen normal to inspection and normal bowel sounds Percussion/Palpation: abdomen soft; abdomen nontender Musculoskeletal: No acute arthritis in any joints Lymphatic: no cervical or axillary lymphadenopathy Results & Data Vital Signs (Past 12 Hours) Vital Signs Temp Pulse Resp BP Pulse Ox 04/28/19 11:48 37.2 C 80 20 151/76 H 91 04/28/19 07:37 36.9 C 80 19 126/71 92 04/28/19 06:57 18 92 04/28/19 03:31 36.8 C 81 16 122/72 93 Laboratory Results Short CBC 04/28/19 Range/Units 05:56 WBC 4.20 L (4.8-10.8) K/uL Hgb 9.0 L (14.0-18.0) g/dL Hct 27.4 L (42-52) % Plt Count 306 (130-400) K/uL Medications Administered Current Inpatient Medications Acetaminophen (Tylenol) 1,000 mg PO QID PRN PRN Reason: Pain Stop: 05/24/19 19:32 Al Hydrox/Mg Hydrox/Simethicone (Maalox) 30 ml PO Q6H PRN PRN Reason: Dyspepsia Stop: 05/24/19 19:32 Albuterol (Combivent Respimat) 1 puffs INH QID NEW Stop: 05/28/19 12:59 Last Admin: 04/28/19 12:55 Dose: 1 puffs Documented by: Budesonide/Formoterol Fumarate (Symbicort 160mcg/4.5mcg) 2 puffs INH BID NEW Stop: 05/28/19 09:59 Last Admin: 04/28/19 11:19 Dose: 2 puffs Documented by: Dextrose (Dextrose 50%) 25 - 50 ml IV UD PRN; Protocol PRN Reason: Hypoglycemia Protocol Stop: 05/25/19 00:47 Dicyclomine HCl (Bentyl) 10 mg PO QID PRN PRN Reason: ABD PAIN Stop: 05/24/19 19:32 Last Admin: 04/25/19 08:39 Dose: 10 mg Documented by: Glucagon (Glucagen) 1 mg SQ UD PRN; Protocol PRN Reason: Hypoglycemia Protocol Stop: 05/25/19 00:47 Glucose (Dex4 Glucose) 4 - 8 tabs PO UD PRN; Protocol PRN Reason: Hypoglycemia Protocol Stop: 05/25/19 00:47 Glucose (Glucose 40%) 15 - 30 gm PO UD PRN; Protocol PRN Reason: Hypoglycemia Protocol Stop: 05/25/19 00:47 Heparin Sodium/Dextrose (Heparin Sodium/Dextrose) 25,000 units in 500 mls @ 37 mls/hr IV .[id number] NEW; Protocol Stop: 05/24/19 15:44 Last Admin: 04/28/19 12:53 Dose: 1,850 units/hr, 37 mls/hr Documented by: Piperacillin Sod/Tazobactam (Sod 3.375 gm/ Dextrose) 115 mls @ 28.75 mls/hr IV Q8H NEW; Protocol Stop: 05/02/19 05:59 Last Admin: 04/28/19 12:57 Dose: 28.8 mls/hr Documented by: Vancomycin HCl 1,250 mg/ (Sodium Chloride) 275 mls @ 125 mls/hr IV Q12H NEW; Protocol Stop: 05/04/19 15:59 Last Infusion: 04/28/19 06:39 Dose: Infused Documented by: Insulin Aspart (Novolog Flexpen) 0 units SC ACHS NEW Stop: 05/25/19 00:49 Last Admin: 04/28/19 12:47 Dose: 1 units Documented by: Insulin Glargine (Lantus Solostar Pen) 5 units SQ DAILY NEW Stop: 05/26/19 08:59 Last Admin: 04/28/19 08:16 Dose: 5 units Documented by: Ioversol (Optiray 320 125ml) 115 ml IV ONCE PRN PRN Reason: Interaction Checking Stop: 04/28/19 15:10 Last Admin: 04/24/19 15:12 Dose: 115 ml Documented by: Ipratropium [place] (Atrovent 0.02% 0.5mg/2.5ml) 0.5 mg INH Q6R PRN PRN Reason: Shortness Of Breath Or Wheezing Stop: 05/25/19 00:59 Lactobacillus Acidophilus (Floranex) 4 tab PO DAILY NEW Stop: 05/25/19 08:59 Last Admin: 04/28/19 08:11 Dose: 4 tab Documented by: Levalbuterol HCl (Xopenex 1.25mg/0.5ml Neb) 1.25 mg INH Q6R PRN PRN Reason: Shortness Of Breath Or Wheezing Stop: 05/25/19 00:59 Lidocaine (Lidoderm 5%) 1 patch TD DAILY [facility] Stop: 05/25/19 08:59 Last Admin: 04/28/19 08:12 Dose: 1 patch Documented by: Loratadine (Claritin) 10 mg PO DAILY [facility] Stop: 05/25/19 08:59 Last Admin: 04/28/19 08:13 Dose: 10 mg Documented by: Miscellaneous (Remove Lidoderm Patch) 1 ea N/A DAILY@2100 [facility] Stop: 05/24/19 20:59 Last Admin: 04/27/19 20:38 Dose: 1 ea Documented by: Miscellaneous (Remove Nicoderm Patch) 1 ea N/A DAILY@0859 [facility] Stop: 05/25/19 08:58 Last Admin: 04/28/19 08:13 Dose: 1 ea Documented by: Miscellaneous (Carbohydrates For Hypoglycemia) 15 - 30 gm PO UD PRN PRN Reason: Hypoglycemia Protocol Stop: 05/25/19 00:47 Miscellaneous Information (Consult) 1 ea N/A UD PRN PRN Reason: Consult Stop: 05/24/19 15:35 Miscellaneous Information (Consult) 1 ea N/A UD PRN PRN Reason: Consult Stop: 05/25/19 00:25 Nicotine (Nicoderm Cq) 21 mg TD QAM [facility] Stop: 05/25/19 00:34 Last Admin: 04/28/19 08:13 Dose: 21 mg Documented by: Ondansetron HCl (Zofran) 4 mg IV Q6H PRN PRN Reason: Nausea Stop: 05/24/19 19:32 Oxycodone/Acetaminophen (Percocet 5mg/325mg) 1 tab PO Q6H PRN PRN Reason: Pain Stop: 05/09/19 17:05 Last Admin: 04/28/19 08:30 Dose: 1 tab Documented by: Pantoprazole Sodium (Protonix) 40 mg PO DAILY [facility] Stop: 05/25/19 08:59 Last Admin: 04/28/19 08:11 Dose: 40 mg Documented by: Prednisone (Prednisone) 20 mg PO BID [facility] Stop: 05/28/19 20:59 Tiotropium [place] (Spiriva) 1 puffs INH QAM [facility] Stop: 05/28/19 09:59 Last Admin: 04/28/19 11:20 Dose: 1 puffs Documented by: Warfarin Sodium (Coumadin) 5 mg PO DAILY@1600 [facility] Stop: 05/27/19 15:59 Last Admin: 04/27/19 15:57 Dose: 5 mg Documented by: (1) COPD (chronic obstructive pulmonary disease) COPD type: unspecified COPD Qualified Code(s): J44.9 - Chronic obstructive pulmonary disease, unspecified (2) DVT (deep venous thrombosis) Affected thrombotic vein of extremity: unspecified vein of extremity Chronicity: unspecified DVT location: upper extremity Laterality: unspecified laterality Qualified Code(s): I82.629 - Acute embolism and thrombosis of deep veins of unspecified upper extremity (3) Chronic lumbar pain Back pain laterality: left Sciatica presence: unspecified whether sciatica present Qualified Code(s): M54.5 - Low back pain; G89.29 - Other chronic pain
[2019-04-28] MEDS: WARFARIN SOD 5 MG TAB PO SCH (15:29)
[2019-04-28] MEDS: predniSONE 20 MG TAB PO SCH (21:46)
[2019-04-28 21:51] LABS: Partial Thromboplastin Ratio 1.8
[2019-04-28 22:25] LABS: Partial Thromboplastin Time 48.8 Seconds (21.0-31.0)
[2019-04-29] MEDS: VANCOMYCIN HCL 1,250 MG in SODIUM CHLORIDE 0.9% 250 ML IV SCH (03:37)
[2019-04-29 04:14] LABS: Basophils # (auto) 0.01 K/uL (0-0.2); Basophils % (auto) 0.2 %; Hematocrit (blood only) 27.9 % (42-52); Hemoglobin 8.8 g/dL (14.0-18.0); Immature Granulocytes # (auto) 0.03 K/uL (0.00-0.02); Immature Granulocytes % (auto) 0.6 %; Lymphocytes # (auto) 1.02 K/uL (1.2-3.4); Lymphocytes % (auto) 19.1 %; Mean Corpuscular Hemoglobin 28.6 pg (25-34); Mean Corpuscular Hgb Conc 31.5 g/dL (32-36); Mean Corpuscular Volume 90.6 fL (80-100); Mean Platelet Volume 9.6 fL (7.4-10.4); Monocytes # (auto) 0.39 K/uL (0.11-0.59); Monocytes % (auto) 7.3 %; Neutrophils % (auto) 72.8 %; Platelet Count 335 K/uL (130-400); RDW Coefficient of Variation 13.4 % (11.5-14.5); RDW Standard Deviation 44.6 fL (36.4-46.3); Red Blood Count 3.08 M/uL (4.7-6.1); White Blood Count 5.35 K/uL (4.8-10.8)
[2019-04-29 04:38] LABS: INR 1.3 (0.9-1.1); Partial Thromboplastin Ratio 2.9; Prothrombin Time 13.5 Seconds (9.0-12.0)
[2019-04-29 04:40] LABS: Partial Thromboplastin Time 77.3 Seconds (21.0-31.0)
[2019-04-29 04:42] LABS: BUN Creatinine Ratio 13.5 (10-20); Calcium 8.8 mg/dl (8.5-10.1); Creatinine Clr Calc Pharmacy 125.5 ml/min; Est GFR (Non-African American) 104.4; Potassium 4.3 mmol/L (3.5-5.1)
[2019-04-29] MEDS: PIPERACILLIN/TAZOBACTAM 3.375 GM in DEXTROSE 5% 100 ML IV SCH (05:57)
[2019-04-29] MEDS ORDERED: VANCOMYCIN TROUGH SCH (07:30)
[2019-04-29] MEDS: LACTOBACILLUS ACIDOPHILUS (FLORANEX) TAB PO SCH (08:29)
[2019-04-29] MEDS: PANTOprazole 40 MG TAB PO SCH (08:29)
[2019-04-29] MEDS: NICOTINE 21 MG/24 HR TDSY TD SCH (08:29)
[2019-04-29] MEDS: LORATADINE 10 MG TAB PO SCH (08:29)
[2019-04-29] MEDS: TIOTROPIUM BROMIDE 5 PUFF/90 MCG INH INH SCH (08:30)
[2019-04-29] MEDS: LIDOCAINE 5% 1 PATCH TD SCH (08:30)
[2019-04-29] MEDS: predniSONE 20 MG TAB PO SCH (08:30)
[2019-04-29] MEDS: BUDESONIDE/FORMOTEROL FUMARATE 160/4.5 60 PUFFS/INHALER INH SCH (08:30)
[2019-04-29] MEDS: IPRATROPIUM BROMIDE/ALBUTEROL respimat INH INH SCH ×2 (08:31→12:28)
[2019-04-29] MEDS: INSULIN ASPART 100 UNITS/ML 3 ML PEN SC SCH ×2 (08:34→12:27)
[2019-04-29] MEDS: INSULIN GLARGINE SOLOSTAR 100 UNITS/ML 3 ML PEN SQ SCH (08:34)
[2019-04-29] MEDS: OXYCODONE/ACETAMINOPHEN 5mg/325mg TAB PO PRN ×2 (08:47→14:33)
[2019-04-29] MEDS: HEPARIN SODIUM/DEXTROSE 25,000 UNITS/500 ML BAG IV SCH (08:47)
--- NOTE | 2019-04-29 10:29 | Pulmonology Progress Note ---
Date of Service April 29, 2019 Assessment & Plan (1) Abnormal CT scan of lung: Impression: 54-year-old male with extensive history of COPD and prior admission for MRSA pneumonia admitted now with leukopenia and lower lobe infiltrates. He is status post bronchoscopy with BAL which has not shown any growth and airways were quite bland. He did have an upper extremity DVT associated with PICC line Recommendations: 1. Abnormal CT scan: Findings are of unclear etiology. Bronchoscopy has not identified any infectious organisms today and I doubt this is progression of his MRSA pneumonia. Pulmonary toxicity related to ceftaroline is possible and the antibiotic has been discontinued. His leukopenia appears to be resolving as well with discontinuation of ceftaroline. I do not think he has an ongoing active pulmonary infection and do not think he needs antimicrobial agents for a pulmonary issue. Would continue a 3-week taper of prednisone and follow-up CT scan in 4 weeks and see us back in clinic. 2. COPD: Patient is not overtly bronchospastic for now. Continue current inh concepcion. Outpatient PFTs recommended. 3. Tobacco abuse: Smoking cessation recommended to the patient. 4. Upper extremity DVT: Associated with a PICC line. At least 3 months of anticoagulation. INR remains subtherapeutic. May need Lovenox bridge or transition to NOAC. Patient may be appropriate for discharge once his antibiotic and anticoagulation plans are finalized. Discussed with hospitalist. We would be happy to see him back in pulmonary clinic. Please call us if we can be of additional assistance (2) Acute hypoxemic respiratory failure: (3) COPD (chronic obstructive pulmonary disease): Patient continues to be an everyday smoker Again counselled on complete tobacco and vaping abstention Continue bronchodilators Change to prednisone and begin to taper as tolerated. Thank you for including us in the care of this patient. We will continue top follow along with you. COPD type: unspecified COPD Qualified Code(s): J44.9 - Chronic obstructive pulmonary disease, unspecified Subjective No new complaints. He states he is feeling better. He is not coughing. No wheezing. He is doing well off tobacco products. Review of Systems Review of Systems: Unchanged from prior Physical Exam Physical Exam: GENERAL : No acute distress. Cantankerous. EYES: No icterus, gaze conjugate NOSE: No evidence of epistaxis MOUTH: No lesions or candidiasis NECK: Supple LUNGS: Some crackles at the bases. No bronchospasm. No rhonchi. Inspirational effort is adequate. HEART: Regular, rate controlled ABDOMEN: Soft, NT, ND, BS Present EXTREMITIES: No LE edema, pedal pulses intact. Left upper extremity edema. Radial and ulnar pulses are intact and appropriate. Capillary refill is appropriate. NEURO: A&OX3 Results & Data Vital Signs (Past 12 Hours) Vital Signs Temp Pulse Pulse Resp BP Pulse Ox 04/29/19 07:14 57 L 04/29/19 02:59 36.3 C L 60 20 135/81 88 L 04/28/19 23:12 36.5 C 62 20 132/64 90 PG Care Time/CCT Total # of Minutes Spent Total Time Spent with Patient: Total time spent is greater than 50% in coordination of care (as documented) at patient's floor/unit and/or counseling patient:
[2019-04-29 11:53] LABS: Partial Thromboplastin Ratio 1.8
[2019-04-29 11:56] LABS: Partial Thromboplastin Time 47.8 Seconds (21.0-31.0)
--- NOTE | 2019-04-29 12:42 | Hospitalist Progress Note ---
Date of Service April 29, 2019 Assessment & Plan (1) Acute hypoxemic respiratory failure: History of COPD with recent MRSA pneumonia Finished antibiotic as as prescribed Admitted with the acute shortness of breath and the condition got worse overnight CT of the chest did show bilateral lower lobe infiltration Appreciate pulmonary input and recommendation Status post bronchoscopy today with lavage He has been feeling a lot better following bronchoscopy Sputum Gram stain shows few epithelial cells, many mononucleated cells, rare polys and rare gram-positive bacilli Will get ID input Clinically a lot better and wants to go home Awaiting ID evaluation and direction for use of antibiotics on discharge Discussed with the ID specialist and the patient can be discharged home without any antibiotic He has already finished the intravenous antibiotic for MRSA sepsis He will be discharged home this afternoon (2) COPD (chronic obstructive pulmonary disease): Has been getting intravenous antibiotic Intravenous Solu-Medrol Nebulized bronchodilator Clinically improving Denies any acute symptoms at rest Slow prednisone taper as per the primary care nurse (3) Worsening pneumonia: As above Has been on Zosyn and vancomycin Blood cultures have been negative Await bronchoscopy before changing antibiotic Await results of bronchoalveolar lavage before changing antibiotic We will continue current antibiotics ID consulted-awaiting input and recommendation about antibiotics on discharge Doubt any pneumonia during his admission (4) DVT (deep venous thrombosis): Left upper extremity acute DVT Status post removal of PICC line Has been on anticoagulation for that Coumadin has been started Will need Lovenox bridging until INR is therapeutic (5) HTN (hypertension): Blood pressure seems to be under control (6) Chronic lumbar pain: Has been taking Percocet 5/325 1 tablet every 6 hourly for chronic back pain [place] has been changed to Percocet Discussed with the family members Subjective 04/25 The patient was seen and examined in medical floor He is a 53-year-old male with past medical history of MRSA pneumonia recently discharged on March 16, neutropenia, hypertension, gram-positive sepsis, chin cellulitis, COPD, GERD, chronic back pain, turns with shortness of breath and left upper extremity swelling. Noted to be more shortness of breath at night and requiring more oxygen Started on intravenous Solu-Medrol Has been feeling much better this morning 04/26 The patient was seen and examined in medical floor He is a status post bronchoscopy this morning Has been feeling much better following the Denies any significant symptoms and wants to eat 04/27 The patient was seen and examined in medical floor He is a status post bronchoscopy for bilateral multi lobar pneumonia Has had MRSA pneumonia recently Bronchoalveolar leverage tests have been pending so far Clinically he is feeling much better 04/28 Patient was seen and examined in medical floor He has been feeling a lot better Denies any symptoms of cough, shortness of breath, chest pain, denies any abdominal pain, nausea and/or vomiting He wants to go home 04/29 The patient was seen and examined in medical floor He has been feeling a lot better and denies any respiratory symptoms He has been ambulating well without any difficulty and he wants to go home Discussed with the rn community and ID specialist and the patient will be sent home this afternoon Review of Systems Review of Systems: All systems reviewed and are unremarkable except as noted below Respiratory: + cough; no dyspnea (At rest) Physical Exam Physical Exam: No apparent distress at rest Constitutional: well developed, well nourished, + acute distress (With shortness of breath), + ill appearing and + obese Eyes: PERRL, conjunctivae normal, anicteric sclerae ENMT: external ear and nose normal, oropharynx normal Neck: trachea midline, no thyromegaly Respiratory: no respiratory distress (At rest) Auscultation: + diminished lung sounds, + crackles (Bilaterally at the bases) and + wheezes (Minimal wheezing as well) Cardiovascular: Rate/Rhythm: regular rate and regular rhythm Heart Sounds: no murmur Gastrointestinal (Abdomen): Inspection/Auscultation: abdomen normal to inspection and normal bowel sounds Percussion/Palpation: abdomen soft; abdomen nontender Lymphatic: no cervical or axillary lymphadenopathy Results & Data Vital Signs (Past 12 Hours) Vital Signs Temp Pulse Pulse Resp BP Pulse Ox 04/29/19 11:32 36.8 C 91 H 19 125/85 90 04/29/19 07:14 57 L 04/29/19 02:59 36.3 C L 60 20 135/81 88 L Laboratory Results Short CBC 04/29/19 Range/Units 03:48 WBC 5.35 (4.8-10.8) K/uL Hgb 8.8 L (14.0-18.0) g/dL Hct 27.9 L (42-52) % Plt Count 335 (130-400) K/uL BMP 04/29/19 03:48 Sodium 141 Potassium 4.3 D Chloride 106 Carbon Dioxide 30 BUN 10 Creatinine 0.73 Glucose 112 H Calcium 8.8 Medications Administered Current Inpatient Medications Acetaminophen (Tylenol) 1,000 mg PO QID PRN PRN Reason: Pain Stop: 05/24/19 19:32 Al Hydrox/Mg Hydrox/Simethicone (Maalox) 30 ml PO Q6H PRN PRN Reason: Dyspepsia Stop: 05/24/19 19:32 Albuterol (Combivent Respimat) 1 puffs INH QID NEW Stop: 05/28/19 12:59 Last Admin: 04/29/19 12:28 Dose: 1 puffs Documented by: Budesonide/Formoterol Fumarate (Symbicort 160mcg/4.5mcg) 2 puffs INH BID NEW Stop: 05/28/19 09:59 Last Admin: 04/29/19 08:30 Dose: 2 puffs Documented by: Dextrose (Dextrose 50%) 25 - 50 ml IV UD PRN; Protocol PRN Reason: Hypoglycemia Protocol Stop: 05/25/19 00:47 Dicyclomine HCl (Bentyl) 10 mg PO QID PRN PRN Reason: ABD PAIN Stop: 05/24/19 19:32 Last Admin: 04/25/19 08:39 Dose: 10 mg Documented by: Glucagon (Glucagen) 1 mg SQ UD PRN; Protocol PRN Reason: Hypoglycemia Protocol Stop: 05/25/19 00:47 Glucose (Dex4 Glucose) 4 - 8 tabs PO UD PRN; Protocol PRN Reason: Hypoglycemia Protocol Stop: 05/25/19 00:47 Glucose (Glucose 40%) 15 - 30 gm PO UD PRN; Protocol PRN Reason: Hypoglycemia Protocol Stop: 05/25/19 00:47 Heparin Sodium/Dextrose (Heparin Sodium/Dextrose) 25,000 units in 500 mls @ 37 mls/hr IV .[id number] NEW; Protocol Stop: 05/24/19 15:44 Last Admin: 04/29/19 08:47 Dose: 1,700 units/hr, 34 mls/hr Documented by: Insulin Aspart (Novolog Flexpen) 0 units SC ACHS [facility] Stop: 05/25/19 00:49 Last Admin: 04/29/19 12:27 Dose: 4 units Documented by: Insulin Glargine (Lantus Solostar Pen) 5 units SQ DAILY [facility] Stop: 05/26/19 08:59 Last Admin: 04/29/19 08:34 Dose: 5 units Documented by: Ipratropium [place] (Atrovent 0.02% 0.5mg/2.5ml) 0.5 mg INH Q6R PRN PRN Reason: Shortness Of Breath Or Wheezing Stop: 05/25/19 00:59 Lactobacillus Acidophilus (Floranex) 4 tab PO DAILY NEW Stop: 05/25/19 08:59 Last Admin: 04/29/19 08:29 Dose: 4 tab Documented by: Levalbuterol HCl (Xopenex 1.25mg/0.5ml Neb) 1.25 mg INH Q6R PRN PRN Reason: Shortness Of Breath Or Wheezing Stop: 05/25/19 00:59 Lidocaine (Lidoderm 5%) 1 patch TD DAILY NEW Stop: 05/25/19 08:59 Last Admin: 04/29/19 08:30 Dose: 1 patch Documented by: Loratadine (Claritin) 10 mg PO DAILY [facility] Stop: 05/25/19 08:59 Last Admin: 04/29/19 08:29 Dose: 10 mg Documented by: Miscellaneous (Remove Lidoderm Patch) 1 ea N/A DAILY@2100 [facility] Stop: 05/24/19 20:59 Last Admin: 04/28/19 21:47 Dose: 1 ea Documented by: Miscellaneous (Remove Nicoderm Patch) 1 ea N/A DAILY@0859 [facility] Stop: 05/25/19 08:58 Last Admin: 04/29/19 08:32 Dose: 1 ea Documented by: Miscellaneous (Carbohydrates For Hypoglycemia) 15 - 30 gm PO UD PRN PRN Reason: Hypoglycemia Protocol Stop: 05/25/19 00:47 Miscellaneous Information (Consult) 1 ea N/A UD PRN PRN Reason: Consult Stop: 05/25/19 00:25 Nicotine (Nicoderm Cq) 21 mg TD QAM [facility] Stop: 05/25/19 00:34 Last Admin: 04/29/19 08:29 Dose: 21 mg Documented by: Ondansetron HCl (Zofran) 4 mg IV Q6H PRN PRN Reason: Nausea Stop: 05/24/19 19:32 Oxycodone/Acetaminophen (Percocet 5mg/325mg) 1 tab PO Q6H PRN PRN Reason: Pain Stop: 05/09/19 17:05 Last Admin: 04/29/19 08:47 Dose: 1 tab Documented by: Pantoprazole Sodium (Protonix) 40 mg PO DAILY [facility] Stop: 05/25/19 08:59 Last Admin: 04/29/19 08:29 Dose: 40 mg Documented by: Prednisone (Prednisone) 20 mg PO BID [facility] Stop: 05/28/19 20:59 Last Admin: 04/29/19 08:30 Dose: 20 mg Documented by: Tiotropium [place] (Spiriva) 1 puffs INH QAM [facility] Stop: 05/28/19 09:59 Last Admin: 04/29/19 08:30 Dose: 1 puffs Documented by: Warfarin Sodium (Coumadin) 5 mg PO DAILY@1600 [facility] Stop: 05/27/19 15:59 Last Admin: 04/28/19 15:29 Dose: 5 mg Documented by: (1) COPD (chronic obstructive pulmonary disease) COPD type: unspecified COPD Qualified Code(s): J44.9 - Chronic obstructive pulmonary disease, unspecified (2) DVT (deep venous thrombosis) Affected thrombotic vein of extremity: unspecified vein of extremity Chronicity: unspecified DVT location: upper extremity Laterality: unspecified laterality Qualified Code(s): I82.629 - Acute embolism and thrombosis of deep veins of unspecified upper extremity (3) Chronic lumbar pain Back pain laterality: left Sciatica presence: unspecified whether sciatica present Qualified Code(s): M54.5 - Low back pain; G89.29 - Other chronic pain
[2019-04-29] MEDS ORDERED: ENOXAPARIN 80 MG/0.8 ML SYR SQ STA (13:29)
[2019-04-29] MEDS: WARFARIN SOD 5 MG TAB PO SCH (15:22)
[2019-04-29] MEDS ORDERED: VANCOMYCIN TROUGH ONE (15:30)
--- NOTE | 2019-04-30 08:16 | Discharge Summary ---
Date of Service April 30, 2019 Admission HPI Per Admitting Provider 53-year-old male with past medical history of MRSA pneumonia recently discharged on March 16, neutropenia, hypertension, gram-positive sepsis, chin cellulitis, COPD, GERD, chronic back pain, turns with shortness of breath and left upper extremity swelling. On his last admission he was positive for nerve MRSA bacteremia and treated with ceftaroline, he was seen by Dr. Alicea from infectious disease. He had a PICC line placed prior to discharge and today we revealed a DVT in his left upper extremity at the PICC site. He developed bilateral pleural effusions which seemed to be slightly resolved compared to previous scans. He was seen by pulmonary Dr. Tuttle as an outpatient. In the emergency room he was short of breath complain of left upper extremity swelling and was placed on 5 L of oxygen. He was also placed on a heparin drip in the emergency room. Chest x-ray revealed- Progression of bilateral airspace opacities, greater within the left lung. The findings favor multifocal pneumonia. CTA of the chest was negative for pulmonary embolism, ultrasound of left upper extremities positive for DVT at PICC line site. Admission Exam Per Admitting Provider Physical Exam: ROS-No Headache, No Visual Changes, No Nausea, No Vomiting, No Fever, No Chills, No Neck Pain or Stiffness, No Chest Pain, No Palpitations, + SOB, +JIMENEZ, No Cough, No Sputum, No Wheezing, No Abdominal Pain, No Diarrhea, No Hematemesis, No Hemoptysis, No Unexpected Weight Loss, No Flank pain, No Melena, No Hematochezia, No Frequency, No Urgency, No Burning, No Hematuria, No Rashes, No Diaphoresis. Appetite is Normal, positive left upper extremity swelling Physical Exam Gen-AAO x 3, NAD, Afebrile, pleasant Head-NCAT, EOMI, PERRLA, Anicteric Sclera, No Posterior Pharyngeal Erythema Neck-Supple, No JVD, No Thyromegaly, No Masses, No LAD, No Bruits Lungs-Clear to Auscultation Bilaterally, No Rales, No Rhonchi, No Wheezing, No Crepitus Chest-No S4, +S1, +S2, No S3, No Murmurs, No Rubs, No Gallops, No Ectopy Abdomen-Soft, Bowel Sounds Present, Non Tender, Non Distended, No Hepatomegaly, No Splenomegaly, No Palpable Masses, No Rebound, No Rigidity, No Guarding Musculoskeletal-Full Range of Motion Bilaterally, No CVAT Extremities-No Cyanosis, No Clubbing, No Edema Nuero-Cranial Nerves II-XII grossly intact, Motor WNL, DTRs WNL, Strength WNL, Non Focal Psych-Normal Mood Principal Diagnosis Acute hypoxic respiratory failure-improved, left upper extremity DVT, COPD exacerbation Discharge Exam Constitutional well developed, well nourished, + acute distress (With shortness of breath), + ill appearing and + obese Eyes PERRL, conjunctivae normal, anicteric sclerae ENMT external ear and nose normal, oropharynx normal Neck trachea midline, no thyromegaly Respiratory no respiratory distress (At rest) Auscultation: + diminished lung sounds, + crackles (Bilaterally at the bases) an d + wheezes (Minimal wheezing as well) Cardiovascular Rate/Rhythm: regular rate and regular rhythm Heart Sounds: no murmur Gastrointestinal (Abdomen) Inspection/Auscultation: abdomen normal to inspection and normal bowel sounds Percussion/Palpation: abdomen soft; abdomen nontender Lymphatic no cervical or axillary lymphadenopathy Discharge Data Allergies Allergy/AdvReac Type Severity Reaction Status Date / Time cortisone Allergy Severe DROPPED Verified 04/24/19 14:43 B/P, PASSED OUT, BURNING SENSATION AT SITE. pollen extracts Allergy Intermediate SNEEZING, Verified 04/24/19 14:43 CONGESTION, COUGH. Iodinated Contrast Media AdvReac Intermediate GI Verified 04/24/19 14:43 SYMPTOMS--N/V Consultations 04/24/19 16:01 ED Decision to Admit Stat 04/24/19 19:33 Consult Infectious Diseases Routine 04/25/19 00:47 Consult Pulmonology Routine 04/27/19 14:25 Consult Infectious Diseases Routine 04/29/19 09:35 Consult Case Management - Discharge Planning Routine Procedures Performed Operation Date: 04/26/19 07:45 Actual Procedures p Bronchoscopy (Bilateral) - Dustin Tuttle MD Ordered Studies 04/24/19 12:51 US venous doppler UE LT Stat 04/24/19 12:52 CT angio chest PE protocol Stat Hospital Course (1) Acute hypoxemic respiratory failure: History of COPD with recent MRSA pneumonia Finished antibiotic as as prescribed Admitted with the acute shortness of breath and the condition got worse overnight CT of the chest did show bilateral lower lobe infiltration Appreciate pulmonary input and recommendation Status post bronchoscopy today with lavage He has been feeling a lot better following bronchoscopy Sputum Gram stain shows few epithelial cells, many mononucleated cells, rare polys and rare gram-positive bacilli Will get ID input Clinically a lot better and wants to go home Awaiting ID evaluation and direction for use of antibiotics on discharge Discussed with the ID specialist and the patient can be discharged home without any antibiotic He has already finished the intravenous antibiotic for MRSA sepsis He will be discharged home this afternoon (2) COPD (chronic obstructive pulmonary disease): Has been getting intravenous antibiotic Intravenous Solu-Medrol Nebulized bronchodilator Clinically improving Denies any acute symptoms at rest Slow prednisone taper as per the attorney at law (3) Worsening pneumonia: As above Has been on Zosyn and vancomycin Blood cultures have been negative Await bronchoscopy before changing antibiotic Await results of bronchoalveolar lavage before changing antibiotic We will continue current antibiotics ID consulted-awaiting input and recommendation about antibiotics on discharge Doubt any pneumonia during his admission (4) DVT (deep venous thrombosis): Left upper extremity acute DVT Status post removal of PICC line Has been on anticoagulation for that Coumadin has been started Will need Lovenox bridging until INR is therapeutic (5) HTN (hypertension): Blood pressure seems to be under control (6) Chronic lumbar pain: Has been taking Percocet 5/325 1 tablet every 6 hourly for chronic back pain [place] has been changed to Percocet Discussed with the family members Total Time Total Time Spent Total Time Spent (In Minutes): 35 minutes Total Time Includes: Examination of the Patient, Discharge Planning, Medication Reconciliation and Communication With Other Providers Discharge Plan Discharge Items Patient Disposition: Home - Home Health Services Reason For Visit: DVT LUE Discharge Diagnosis: Acute hypoxic respiratory failure-improved, left upper extremity DVT, COPD exacerbation Condition on Discharge: Fair Activity: Resume your previous activity Non-emergency contact: Primary Care Provider Call non-emergency contact if: you have any medication questions and your symptoms worsen Follow-up/Referrals: Lorena Schwarz DO [Primary Care Provider] - (Please keep appointment with your primary care physician. Coagulation clinic will be notified so that you can have INR tested on Wednesday. Keep appointment with your lung doctor) Diet: Carb Consistent or DM2 Addtl Attending Provider Instructions: Please take precaution to avoid falls, Use your oxygen all the time. No more Smoking. Take Lovenox and Coumadin and have a follow-up appointment with Coumadin clinic on Wednesday Pending Studies at Discharge: Yes Studies:: BAL studies Stand-Alone Forms: My [facility]by, Smoking Cessation Medications and DC Order Prescriptions: New warfarin [Coumadin] 5 mg Tablet 5 mg PO DAILY@1600 30 Days Qty: 30 RF: 0 nicotine [Nicoderm CQ] 21 mg/24 hr Patch 24 Hour 21 mg transdermal QAM 30 Days Qty: 30 RF: 0 Combivent Respimat 20-100 mcg/actuation Mist 1 puff inhalation QID 30 Days Qty: 1 RF: 0 prednisone 10 mg tablet 10 mg PO UD Qty: 70 RF: 0 enoxaparin [Lovenox] 120 mg/0.8 mL syringe 120 mg SQ DAILY Qty: 2.4 RF: 0 fluticasone propion-salmeterol [AirDuo RespiClick] 232-14 mcg/actuation aerosol powdr breath activated 1 puffs INH BID Qty: 60 RF: 0 albuterol sulfate 2.5 mg /3 mL (0.083 %) solution for nebulization 1.25 mg INH Q6H PRN (Reason: bronchospasm) Qty: 90 RF: 0 tiotropium bromide 2.5 mcg/actuation mist 2 puffs INH DAILY Qty: 4 RF: 0 Continued omeprazole 40 mg Capsule,Delayed Release(Dr/Ec) 40 mg PO DAILY RF: 0 dicyclomine 10 mg Capsule 10 mg PO QID PRN (Reason: ABD PAIN) RF: 0 loratadine 10 mg Tablet 10 mg PO DAILY RF: 0 Probiotic 3 billion cell capsule 3,000 mmu cells PO DAILY Qty: 60 RF: 0 hydrocodone-acetaminophen [[place]] 5-325 mg Tablet 1 tab PO Q8 PRN (Reason: pain) Qty: 6 RF: 0 acetaminophen [Tylenol Extra Strength] 500 mg Tablet 1,000 mg PO QID PRN (Reason: Pain) RF: 0 lidocaine 5 % adhesive patch,medicated 1 patch transdermal DAILY RF: 0 Discontinued ceftaroline fosamil 600 mg recon [place]n 600 mg IV Q12H 42 Days Qty: 84 RF: 0 naproxen sodium [Aleve] 220 mg Tablet 220 mg PO BID PRN (Reason: Pain) RF: 0 ibuprofen 800 mg tablet 800 mg PO TID PRN (Reason: Pain) RF: 0 Discharge Orders: Discharge Order (Routine); Ordered 04/29/19 Ordered By: Marcos Larose/Other Patient Handouts: Coumadin, COPD, Oxygen Home Use, COPD Inhalers, Enoxaparin Sodium Porcine Solution for injection Admission Data Admit Date/Time: 04/24/19 18:27 Attending Provider: Marcos Murillo Admit Provider: Yusuf Swanson Primary Care Provider: Lorena Schwarz Other Providers: Yusuf Swanson ; Ana Luisa Alicea ; Thong Michel ; Kvng Michael ; Jewels Alegre ; [place] ; Lydia Herrera ; Aman Baker ; Luis M Merchant ; Taryn Cardona ; Dustin Tuttle ; Raymon Padgett ; Steph Turner ; Mulugeta Peterson ; Logan Puga ; Joseph Ghotra ; Diego Castaneda ; Desmond Jim ; Ramana Garcia ; [facility] Other Interventions: Discharge Summary Assessment (RN) Last Done: 04/29/19 12:51 DC Date/Time DO NOT enter until pt leaves facility: 04/29/19 15:30
== END 2019-04-29 15:30 | disposition home health service (06) | DRG 193 ==
LOC: ED 12:11 → SUATTDRO 18:27 → 3N 18:27 → 2W 04-25 01:50